=== PATIENT | male | born 1935 | race Caucasian/White ===

== ENCOUNTER 2017-01-18 17:02 | Inpatient (IN) | payer MEDICARE, BC ==
--- NOTE | 2017-01-18 17:31 | ED ---
General Adult HPI - General Chief complaint: Altered Mental Status Stated complaint: Altered Mental Status, Fall Time Seen by Provider: 01/18/17 17:27 Source: patient, family, RN notes reviewed, old records reviewed Mode of arrival: wheelchair Limitations: no limitations - History of Present Illness Initial comments: This is a 79-year-old male in the ER for evaluation of altered mental status. Patient has not been up acting appropriately all day. Was visit. This first cystitis patient is unable to give accurate history. Patient has been speaking to the all day, payton [place] toilet after 4 hours after going to the bathroom, was also found the ground hours after coming off the toilet. states patient has is refusing to the emergency room with the family arcual ready-made patient come to the ER at this point. Patient denies any complaints although again is poor strain - Related Data Home Medications Medication Instructions Recorded Confirmed Aspirin EC [Ecotrin Low Dose] 81 mg PO HS 04/27/15 01/18/17 Atorvastatin [Lipitor] 10 mg PO HS 01/18/17 01/18/17 Enalapril [Vasotec] 5 mg PO HS 01/18/17 01/18/17 Isosorbide Mononitrate ER [Imdur] 30 mg PO QAM 01/18/17 01/18/17 oxyCODONE-APAP 10-325MG [Percocet 1 tab PO Q6HR 01/18/17 01/18/17 10-325 mg] Previous Rx's Medication Instructions Recorded Nitroglycerin Sl Tabs [Nitrostat] 0.4 mg SUBLINGUAL Q5M PRN #25 tab 05/01/15 Allergies Allergy/AdvReac Type Severity Reaction Status Date / Time No Known Allergies Allergy Verified 01/18/17 17:09 Review of Systems ROS Statement: Those systems with pertinent positive or pertinent negative responses have been documented in the HPI. ROS Other: All systems not noted in ROS Statement are negative. Past Medical History Past Medical History: Chest Pain / Angina, GERD/Reflux, Hyperlipidemia, Hypertension, Myocardial Infarction ([place]), Osteoarthritis (OA) Additional Past Medical History / Comment(s): kidney stone, TIA, HIATAL HERNIA, PALPATIONS, DDD Last Myocardial Infarction Date:: 1992 History of Any Multi-Drug Resistant Organisms: None Reported Past Surgical History: Adenoidectomy, Back Surgery, Coronary Bypass/CABG, Heart Catheterization, Hernia Repair, Tonsillectomy Additional Past Surgical History / Comment(s): LT carotid endarectomy, back surgery FUSION, SX FOR HIATAL HERNIA-PT STATED IT DID'NT WORK.X2 CABG 1982 AND 2008,HARRISON CATARACTS,REPAIR OF TORN RETINA, EGD, HARRISON INGUIANL HERNIA REPAIR, HARRISON CARPAL TUNNEL RELEASE,HARRISON ROTATOR CUFF REPAIR, CYSTOCOPY(HAD KIDNEY STONE) Past Psychological History: No Psychological Hx Reported Smoking Status: Never smoker Past Alcohol Use History: None Reported Past Drug Use History: None Reported - Past Family History Father Family Medical History: No Reported History Mother Family Medical History: No Reported History General Exam Limitations: no limitations General appearance: alert, in no apparent distress Head exam: Present: atraumatic, normocephalic, normal inspection Eye exam: Present: normal appearance, PERRL, EOMI. Absent: scleral icterus, conjunctival injection, periorbital swelling ENT exam: Present: normal exam, mucous membranes moist Neck exam: Present: normal inspection. Absent: tenderness, meningismus, lymphadenopathy Respiratory exam: Present: normal lung sounds bilaterally. Absent: respiratory distress, wheezes, rales, rhonchi, stridor Cardiovascular Exam: Present: regular rate, normal rhythm, normal heart sounds. Absent: systolic murmur, diastolic murmur, rubs, gallop, clicks GI/Abdominal exam: Present: soft, normal bowel sounds. Absent: distended, tenderness, guarding, rebound, rigid Extremities exam: Present: normal inspection, full ROM, normal capillary refill. Absent: tenderness, pedal edema, joint swelling, calf tenderness Back exam: Present: normal inspection Neurological exam: Present: alert, oriented X3, CN II-XII intact Psychiatric exam: Present: normal affect, normal mood Skin exam: Present: warm, dry, intact, normal color. Absent: rash Course Vital Signs 01/18/17 01/18/17 01/18/17 17:06 18:44 19:16 Temperature 97.8 F Pulse Rate 87 67 66 Respiratory 18 16 16 Rate Blood Pressure 179/79 188/79 182/77 O2 Sat by Pulse 97 96 98 Oximetry - Reevaluation(s) Reevaluation #1: 01/18/17 19:57 Patient continues with expressive aphasia per family and per questioning. Reevaluation #2: 01/18/17 19:57 Patient is not a TPA candidate secondary to time of onset being woke up with symptoms EKG Findings - EKG Comments: EKG Findings:: EKG shows normal sinus rhythm rate of 72, NH 144, QRS 140, QTC 431 Medical Decision Making - Medical Decision Making 81 male here for evaluation. Patient does here for evaluation of expressive aphasia, weakness, and acting appropriately. Patient be admitted with acute CVA neurological evaluation - Lab Data Result diagrams: 01/18/17 17:45 01/18/17 17:45 Lab Results 01/18/17 01/18/17 01/18/17 Range/Units 17:45 17:45 17:45 WBC 7.7 (3.8-10.6) k/uL RBC 4.92 (4.30-5.90) m/uL Hgb 15.3 (13.0-17.5) gm/dL Hct 45.6 (39.0-53.0) % MCV 92.8 (80.0-100.0) fL MCH 31.0 (25.0-35.0) pg MCHC 33.5 (31.0-37.0) g/dL RDW 14.0 (11.5-15.5) % Plt Count 165 (150-450) k/uL Neutrophils % 88 % Lymphocytes % 7 % Monocytes % 4 % Eosinophils % 0 % Basophils % 0 % Neutrophils # 6.8 (1.3-7.7) k/uL Lymphocytes # 0.6 L (1.0-4.8) k/uL Monocytes # 0.3 (0-1.0) k/uL Eosinophils # 0.0 (0-0.7) k/uL Basophils # 0.0 (0-0.2) k/uL PT (9.0-12.0) sec INR (<1.2) APTT (22.0-30.0) sec Sodium 139 (137-145) mmol/L Potassium 4.8 (3.5-5.1) mmol/L Chloride 105 (98-107) mmol/L Carbon Dioxide 23 (22-30) mmol/L Anion Gap 11 mmol/L BUN 20 (9-20) mg/dL Creatinine 1.00 (0.66-1.25) mg/dL Est GFR (MDRD) Af Amer >60 (>60 ml/min/1.73 sqM) Est GFR (MDRD) Non-Af >60 (>60 ml/min/1.73 sqM) Glucose 116 H (74-99) mg/dL Calcium 9.6 (8.4-10.2) mg/dL Phosphorus 3.2 (2.5-4.5) mg/dL Magnesium 1.4 L (1.6-2.3) mg/dL Total Bilirubin 0.7 (0.2-1.3) mg/dL AST 25 (17-59) U/L ALT 29 (21-72) U/L Alkaline Phosphatase 82 (38-126) U/L Total Creatine Kinase 255 H (55-170) U/L CK-MB (CK-2) 3.4 H* (0.0-2.4) ng/mL CK-MB (CK-2) Rel Index 1.3 Troponin I 0.219 H* (0.000-0.034) ng/mL Total Protein 6.9 (6.3-8.2) g/dL Albumin 4.3 (3.5-5.0) g/dL Urine Color Urine Appearance (Clear) Urine pH (5.0-8.0) Ur Specific [place] (1.001-1.035) Urine Protein (Negative) Urine Glucose (UA) (Negative) Urine Ketones (Negative) Urine Blood (Negative) Urine Nitrite (Negative) Urine Bilirubin (Negative) Urine Urobilinogen (<2.0) mg/dL Ur Leukocyte Esterase (Negative) Urine RBC (0-5) /hpf Urine WBC (0-5) /hpf Urine Mucus (None) /hpf 01/18/17 01/18/17 Range/Units 17:45 17:45 WBC (3.8-10.6) k/uL RBC (4.30-5.90) m/uL Hgb (13.0-17.5) gm/dL Hct (39.0-53.0) % MCV (80.0-100.0) fL MCH (25.0-35.0) pg MCHC (31.0-37.0) g/dL RDW (11.5-15.5) % Plt Count (150-450) k/uL Neutrophils % % Lymphocytes % % Monocytes % % Eosinophils % % Basophils % % Neutrophils # (1.3-7.7) k/uL Lymphocytes # (1.0-4.8) k/uL Monocytes # (0-1.0) k/uL Eosinophils # (0-0.7) k/uL Basophils # (0-0.2) k/uL PT 11.7 (9.0-12.0) sec INR 1.2 H (<1.2) APTT 24.7 (22.0-30.0) sec Sodium (137-145) mmol/L Potassium (3.5-5.1) mmol/L Chloride (98-107) mmol/L Carbon Dioxide (22-30) mmol/L Anion Gap mmol/L BUN (9-20) mg/dL Creatinine (0.66-1.25) mg/dL Est GFR (MDRD) Af Amer (>60 ml/min/1.73 sqM) Est GFR (MDRD) Non-Af (>60 ml/min/1.73 sqM) Glucose (74-99) mg/dL Calcium (8.4-10.2) mg/dL Phosphorus (2.5-4.5) mg/dL Magnesium (1.6-2.3) mg/dL Total Bilirubin (0.2-1.3) mg/dL AST (17-59) U/L ALT (21-72) U/L Alkaline Phosphatase (38-126) U/L Total Creatine Kinase (55-170) U/L CK-MB (CK-2) (0.0-2.4) ng/mL CK-MB (CK-2) Rel Index Troponin I (0.000-0.034) ng/mL Total Protein (6.3-8.2) g/dL Albumin (3.5-5.0) g/dL Urine Color Light Yellow Urine Appearance Clear (Clear) Urine pH 6.5 (5.0-8.0) Ur Specific [place] 1.010 (1.001-1.035) Urine Protein 1+ H (Negative) Urine Glucose (UA) Negative (Negative) Urine Ketones 2+ H (Negative) Urine Blood Small H (Negative) Urine Nitrite Negative (Negative) Urine Bilirubin Negative (Negative) Urine Urobilinogen <2.0 (<2.0) mg/dL Ur Leukocyte Esterase Negative (Negative) Urine RBC 4 (0-5) /hpf Urine WBC <1 (0-5) /hpf Urine Mucus Rare H (None) /hpf - Radiology Data Radiology results: report reviewed (CT brain is negative for acute disease), image reviewed Disposition Clinical Impression: Altered mental status, CVA (cerebral vascular accident) Disposition: ADMITTED IP TO THIS [facility] Condition: Good Instructions: Altered Mental Status (ED) Referrals: Elal Diallo DO [Primary Care Provider] - 1-2 days
[2017-01-18] MEDS ORDERED: SODIUM CHLORIDE 0.9% 1,000 ML IV STA ×2 (17:42→19:36)
[2017-01-18 18:16] LABS: Basophils % (A) 0 %; CH 30.5; Eosinophils % (A) 0 %; HCT 45.6 % (39.0-53.0); HDW 2.34; HGB 15.3 gm/dL (13.0-17.5); Luc # (Auto) 0.09; Luc % (Auto) 1; Lymphocytes # (A) 0.6 k/uL (1.0-4.8); Lymphocytes % (A) 7 %; MCHC 33.5 g/dL (31.0-37.0); MCV 92.8 fL (80.0-100.0); Monocytes # (A) 0.3 k/uL (0-1.0); Monocytes % (A) 4 %; Neutrophils # (A) 6.8 k/uL (1.3-7.7); Neutrophils % (A) 88 %; RBC 4.92 m/uL (4.30-5.90); WBC 7.7 k/uL (3.8-10.6); WBC (Perox) 8.05
[2017-01-18 18:27] LABS: Partial Thromboplastin Time 24.7 sec (22.0-30.0)
[2017-01-18 18:29] LABS: INR 1.2 (<1.2); Prothrombin Time 11.7 sec (9.0-12.0)
[2017-01-18 18:36] LABS: ALT 29 U/L (21-72); AST 25 U/L (17-59); Alkaline Phosphatase 82 U/L (38-126); Anion Gap 11 mmol/L; Blood Urea Nitrogen 20 mg/dL (9-20); Calcium 9.6 mg/dL (8.4-10.2); Carbon Dioxide 23 mmol/L (22-30); Chloride 105 mmol/L (98-107); Glucose 116 mg/dL (74-99); Magnesium 1.4 mg/dL (1.6-2.3); Non-African American GFR(MDRD) >60 (>60 ml/min/1.73 sqM); Phosphorous 3.2 mg/dL (2.5-4.5); Potassium 4.8 mmol/L (3.5-5.1); Sodium 139 mmol/L (137-145); Total Bilirubin 0.7 mg/dL (0.2-1.3); Total Protein 6.9 g/dL (6.3-8.2)
[2017-01-18 18:55] LABS: Appearance,Urine Clear (Clear); Bilirubin,Urine Negative (Negative); Glucose,Urine (UA) Negative (Negative); Ketones,Urine 2+ (Negative); Leukocyte Esterase,Urine Negative (Negative); Mucus,Urine Rare /hpf; Nitrite,Urine Negative (Negative); PH, Urine 6.5 (5.0-8.0); Particle Count 944; Protein,Urine 1+ (Negative); RBC,Urine 4 /hpf (0-5); UA Billing (MACRO vs. MICRO) MICRO; Urobilinogen,Urine <2.0 mg/dL (<2.0); WBC,Urine <1 /hpf (0-5)
[2017-01-18 19:03] LABS: Creatine Kinase MB 3.4 ng/mL (0.0-2.4); Troponin I 0.219 ng/mL (0.000-0.034)
--- NOTE | 2017-01-18 19:06 | CT ---
EXAMINATION TYPE: CT brain wo con DATE OF EXAM: 01/18/2017 COMPARISON: NONE INDICATION: generalized weakness DLP: 1715.4 mGycm, Automated exposure control for dose reduction was used. CONTRAST: None CT of the brain is performed utilizing 3 mm thick sections through the posterior fossa and 3 mm thick sections through the remaining calvarium. Study is performed within 24 hours of arrival to the hosp ital. No abnormal hyperdensity is present to suggest an acute intracranial hemorrhage. No mass lesion is evident. No acute infarcts are evident. Confluent periventricular white matter hypodensity is present, likely on the basis of chronic white matter ischemic changes. Ventricles and sulci are appropriate for the patient age. Paranasal sinuses and mastoid air cells within the [id number] are clear. IMPRESSIONS: 1. Atrophy with periventricular white matter ischemic type changes.
--- NOTE | 2017-01-18 19:13 | XR ---
EXAMINATION TYPE: XR chest 2V DATE OF EXAM: 01/18/2017 COMPARISON: NONE INDICATION: Weakness fall acute mental status changes TECHNIQUE: Frontal and lateral views of the chest are obtained. FINDINGS: The heart size is normal. The pulmonary vasculature is normal. The lungs are clear. Sternotomy wires are in the midline. IMPRESSION: 1. No acute pulmonary process.
[2017-01-18] MEDS ORDERED: ASPIRIN 325 MG TAB PO STA (19:58)
[2017-01-18] MEDS: SODIUM CHLORIDE 0.9% 1,000 ML IV SCH (23:22)
[2017-01-18] MEDS: ATORVASTATIN 80 MG TAB PO SCH (23:22)
[2017-01-19] MEDS ORDERED: Magnesium Replacement Protocol 1 EACH MISC MISCELLANE PRN (03:52)
[2017-01-19 04:22] LABS: Cholesterol 138 mg/dL (<200); HDL Cholesterol 57 mg/dL (40-60)
[2017-01-19] MEDS: HYDROcodone/APAP 5-325MG 1 EACH TAB PO PRN ×3 (04:38→22:00)
[2017-01-19] MEDS: MAGNESIUM SULFATE-D5W PMX 1 GM in DEXTROSE/WATER 1 100ML.BAG IVPB SCH ×2 (04:38→05:38)
[2017-01-19 05:22] VITALS: BMI 23.5
[2017-01-19] MEDS: SODIUM CHLORIDE 0.9% 1,000 ML IV SCH ×2 (06:31→18:53)
--- NOTE | 2017-01-19 09:27 | US ---
EXAMINATION TYPE: US carotid duplex BILAT DATE OF EXAM: 01/19/2017 COMPARISON: 07/09/2012. CLINICAL HISTORY: Stenosis. Weakness, imbalance, difficulty speaking, left endarterectomy 4-5 yrs ag o EXAM MEASUREMENTS: RIGHT: Peak Systolic Velocity (PSV) cm/sec ----- Right CCA: 79.0 ----- Right ICA: 124.2 ----- Right ECA: 231.1 ICA/CCA ratio: 1.6 RIGHT: End Diastole cm/sec ----- Right CCA: 7.6 ----- Right ICA: 9.5 ----- Right ECA: 0.0 LEFT: Peak Systolic Velocity (PSV) cm/sec ----- Left CCA: 95.1 ----- Left ICA: 103.0 ----- Left ECA: 143.7 ICA/CCA ratio: 1.1 LEFT: End Diastole cm/sec ----- Left CCA: 7.8 ----- Left ICA: 14.4 ----- Left ECA: 0.0 VERTEBRALS (direction of flow): Right Vertebral: Antegrade Left Vertebral: Antegrade Moderate plaque bilateral bifurcations. Increased velocities bilateral ECA's IMPRESSION: 1. Moderate plaque with no significant hemodynamic stenosis bilaterally..
--- NOTE | 2017-01-19 13:33 | P.CNNES ---
History of Present Illness Consult date: 01/18/17 Reason for Consult: Patient admitted with altered mental status and speech arrest. History of Present Illness: This neurology consultation date of service is 01/18/2017. This patient is a 79-year-old right-handed white male who was in his usual state of health until earlier today. Apparently he was having difficulty ambulating at home. He lives at home with his . He states that he was unable to get up off of the commode due to weakness. His did seem to assist him back to his bed after this event. He then showed signs of aphasia. According to the patient he could not talk or have any verbal output for about 2 hours. Patient states he did not have any slurred speech but had no verbal output due to speech arrest. This was a clear new finding for the patient. He has not had these types of episodes in the past. He was brought into the emergency room at [facility] for further evaluation. He underwent a computed tomography scan of the brain which revealed atrophy with periventricular white matter ischemic changes. He was advised admission to the hospital for a complete stroke evaluation. He was not a candidate for TPA as he awoke with these symptoms. The patient states he also has a history of chronic back pain. He is undergone surgery for the back about 2 years ago and still suffers from chronic low back pain. He does take pain medications as needed for management. Patient denies any previous history of TIA or stroke. He does have history of coronary artery bypass grafting with CABG several years ago. Patient is now advised admission for further evaluation. He denies any previous history of head trauma or head injury. He denies having a seizure in the past. Patient is now been admitted and neurology has been consulted for further evaluation and recommendations. Review of Systems Constitutional: Denies chills, Denies fever Eyes: denies blurred vision, denies pain Ears, nose, mouth and throat: Denies headache, Denies sore throat Cardiovascular: Denies chest pain, Denies shortness of breath Respiratory: Denies cough Gastrointestinal: Denies abdominal pain, Denies diarrhea, Denies nausea, Denies vomiting Musculoskeletal: Denies myalgias Integumentary: Denies pruritus, Denies rash Neurological: Denies numbness, Denies weakness Psychiatric: Denies anxiety, Denies depression Endocrine: Denies fatigue, Denies weight change Past Medical History Past Medical History: Chest Pain / Angina, GERD/Reflux, Hyperlipidemia, Hypertension, Myocardial Infarction ([place]), Osteoarthritis ([place]) Additional Past Medical History / Comment(s): kidney stone, TIA, HIATAL HERNIA, PALPATIONS, DDD Last Myocardial Infarction Date:: 1992 History of Any Multi-Drug Resistant Organisms: None Reported Past Surgical History: Adenoidectomy, Back Surgery, Coronary Bypass/CABG, Heart Catheterization, Hernia Repair, Tonsillectomy Additional Past Surgical History / Comment(s): LT carotid endarectomy, back surgery FUSION, SX FOR HIATAL HERNIA-PT STATED IT DID'NT WORK.X2 CABG 1982 AND 2008,HARRISON CATARACTS,REPAIR OF TORN RETINA, EGD, HARRISON INGUIANL HERNIA REPAIR, HARRISON CARPAL TUNNEL RELEASE,HARRISON ROTATOR CUFF REPAIR, CYSTOCOPY(HAD KIDNEY STONE) Past Anesthesia/Blood Transfusion Reactions: No Reported Reaction Past Psychological History: No Psychological Hx Reported Additional Psychological History / Comment(s): PT LIVES AT HOME WITH HIS , IS RETIRED,USED TO WORK COMPUTER/ELECTRONIC REPAIRMAN, NO SERVICE. PT INDEPENDANT BUT HAS STARTED TO USE A CANE WHEN UP. Smoking Status: Never smoker Past Alcohol Use History: None Reported Past Drug Use History: None Reported - Past Family History Father Family Medical History: No Reported History Mother Family Medical History: No Reported History Medications and Allergies Home Medications Medication Instructions Recorded Confirmed Type Aspirin EC [Ecotrin Low Dose] 81 mg PO HS 04/27/15 01/18/17 History Atorvastatin [Lipitor] 10 mg PO HS 01/18/17 01/18/17 History Enalapril [Vasotec] 5 mg PO HS 01/18/17 01/18/17 History Isosorbide Mononitrate ER [Imdur] 30 mg PO QAM 01/18/17 01/18/17 History oxyCODONE-APAP 10-325MG [Percocet 1 tab PO Q6HR 01/18/17 01/18/17 History 10-325 mg] Allergies Allergy/AdvReac Type Severity Reaction Status Date / Time No Known Allergies Allergy Verified 01/18/17 17:09 Physical Examination - Vital Signs Vital Signs: Vital Signs Temp Pulse Pulse Resp BP BP Pulse Ox 01/19/17 08:00 98.1 F 65 16 150/67 95 01/19/17 04:00 98.3 F 59 L 16 190/70 95 01/19/17 00:00 98.8 F 65 16 165/69 97 01/18/17 21:04 97.8 F 64 16 150/65 95 01/18/17 20:17 98.1 F 66 18 175/72 99 01/18/17 20:00 71 18 150/72 96 01/18/17 19:16 66 16 182/77 98 01/18/17 18:44 67 16 188/79 96 01/18/17 17:06 97.8 F 87 18 179/79 97 Intake and Output 01/18/17 01/19/17 01/19/17 22:59 06:59 14:59 Intake Total 1000 180 Balance 1000 180 Intake: IV 1000 Magnesium Sulfate-D5w Pmx 200 1 gm In Dextrose/Water 1 100ml.bag @ 100 mls/hr IVPB Q1H [facility] Rx#: [id number] Sodium Chloride 0.9% 1, 800 000 ml @ 100 mls/hr IV . Q10H [facility] Rx#:[id number] Oral 180 Other: Voiding Method Toilet Toilet Weight 68.039 kg 67.7 kg - Constitutional General appearance: average body habitus, cooperative - EENT EENT: PERRL, mucous membranes moist - Respiratory Respiratory: lungs clear, normal breath sounds - Cardiovascular Cardiovascular: regular rate, normal S1, normal S2 Extremities: no peripheral edema bilaterally - Gastrointestinal Gastrointestinal: normoactive bowel sounds - Integumentary Integumentary: normal - Neurologic Cranial nerve examination: PERRL, EOMI, VFF, V1/V2/V3 grossly intact, face symmetric, intact gag reflex, intact corneal reflex, normal palatal elevation Speech examination: intact Sensorimotor examination: intact Detailed motor examination: grossly full strength in all extremities Motor examination - right side: 4/5: biceps, triceps, wrist flexion, wrist extension, direct support staff, hip flexors, knee extensors, dorsiflexion, toe extension (EHL) , plantarflexion Motor examination - left side: 4/5: biceps, triceps, wrist flexion, wrist extension, direct support staff, hip flexors, knee extensors, dorsiflexion, toe extension (EHL) , plantarflexion Detailed sensory examination: intact Reflex and gait examination: intact Reflexes: 1+: ankle, bicep, knee, tricep - Musculoskeletal Musculoskeletal: no pain - Psychiatric Psychiatric: mood/affect appropriate, cooperative Results - Laboratory Findings CBC and BMP: 01/18/17 17:45 01/18/17 17:45 Abnormal Lab Findings: Abnormal Labs 01/18/17 01/18/17 01/18/17 17:45 17:45 17:45 Lymphocytes # 0.6 L INR Glucose 116 H Magnesium 1.4 L Total Creatine Kinase 255 H CK-MB (CK-2) 3.4 H* Troponin I 0.219 H* Urine Protein Urine Ketones Urine Blood Urine Mucus 01/18/17 01/18/17 17:45 17:45 Lymphocytes # INR 1.2 H Glucose Magnesium Total Creatine Kinase CK-MB (CK-2) Troponin I Urine Protein 1+ H Urine Ketones 2+ H Urine Blood Small H Urine Mucus Rare H Assessment and Plan (1) Acute encephalopathy Status: Acute Code(s): G93.40 - ENCEPHALOPATHY, UNSPECIFIED (2) Expressive aphasia Status: Acute Code(s): R47.01 - APHASIA (3) TIA (transient ischemic attack) Status: Acute Code(s): G45.9 - TRANSIENT CEREBRAL ISCHEMIC ATTACK, UNSPECIFIED (4) Previous back surgery Status: Acute Code(s): Z98.890 - OTHER SPECIFIED POSTPROCEDURAL STATES Plan: This patient is a 81-year-old male who was admitted with symptoms of acute speech arrest and confusion. Patient states he awoke and was sitting on the toilet and developed some weakness. His was able to assist him where she noted he had no to little verbal output for over 2 hours duration. She decided to bring him to the emergency room. He was not a TPA candidate as per the ER and the interventional group. The patient was sent for a computed tomography scan of the brain which revealed atrophy. He is subsequent been admitted to hospital. His neurological examination is consistent with acute TIA. We have recommended a complete stroke evaluation but the patient. His overall prognosis at this time remains very guarded. We will continue close neurological follow-up for this patient during this admission. Time with Patient: Greater than 30
--- NOTE | 2017-01-19 13:38 | HP ---
CHIEF COMPLAINTS: Expressive dysphasia and as well as weakness and change in mental status. HISTORY OF PRESENT ILLNESS: This 81-year-old gentleman with past medical history of multiple medical problems including hypertension, hyperlipidemia, history of myocardial infarction, history of CAD, CABG being followed by Dr. Dexter in the outpatient setting was noted to have some change in mental status as well as expressive dysphasia by family. The patient apparently was mildly confused, unable to answer questions correctly. The patient was taken to [facility] and admitted for further evaluation and treatment. Patient is able to give only vague history. The rest of history is obtained with my discussion with staff and discussion with ER physician and review of the chart. CT scan showed atrophy with periventricular white matter changes. There is no history of fever, rigors. No history of trauma. The troponin is found to be 0.219. PAST MEDICAL HISTORY: History of hypertension, hyperlipidemia, history of myocardial infarction, adenoidectomy Medications prior to admission include: 1. Oxycodone 10 mg q.6 p.r.n. 2. Nitrostat 0.4 sublingual 3. Imdur 30 mg q.a.m. 4. Vasotec 5 mg q.h.s. 5. Lipitor 10 mg daily. ALLERGIES: NONE. Family history, social history and review of systems could not be taken at length because of change in mental status. PHYSICAL EXAMINATION: The patient is slightly drowsy, arousable. The pulse is 87 , blood pressure 179/79, respirations 18, temperature 97.8, pulse ox 97% on room air. HEENT: Conjunctivae normal. NECK: No jugular venous distention. CARDIOVASCULAR: S1, S2. RESPIRATORY: Breath sounds diminished at the bases. A few scattered rhonchi, no crackles. ABDOMEN: Soft, nontender, no mass palpable. LEGS: No edema, no swelling. NERVOUS SYSTEM: No focal deficits. LABS: Troponin 0.219. Other labs noted. ASSESSMENT: 1. Expressive dysphasia and change in mental status, possibly rule out acute stroke or TIA. 2. Change in mental status metabolic encephalopathy. 3. Troponin 0.219, indeterminate. 4. History of hypertension. 5. History of hyperlipidemia. 6. History of coronary artery disease, CABG. RECOMMENDATIONS AND DISCUSSION: In this 81-year-old gentleman who presented with multiple complex medical issues, we well monitor the patient closely. Continue the current medications. Continue symptomatic treatment. Antiplatelet agents. Neurology consultation. Also recommend neurovascular workup. Otherwise continue to monitor. scale has been monitored. Otherwise prognosis guarded because of multiple complex medical issues and further recommendations to follow. MTDD
[2017-01-19 17:08] VITALS: RESP 18
--- NOTE | 2017-01-19 17:09 | P.PN ---
Subjective Date of service 01/19/2017 Progress note being dictated for Dr. Keating. Interval history: This 81-year-old gentleman admitted with acute CVA/TIA with expressive dysphasia, and change in mental status. Neuro workup in progress. Carotid Doppler reporting no hemodynamic significant stenosis .Evaluated by neurology with recommendations noted. Telemetry sinus bradycardia with heart rates in the 50s. Denies chest pain, palpitations or increasing shortness of breath. Objective - Vital Signs Vital signs: Vital Signs Temp 98.1 F 01/19/17 08:00 Pulse 65 01/19/17 08:00 Resp 16 01/19/17 08:00 BP 150/67 01/19/17 08:00 Pulse Ox 95 01/19/17 08:00 Intake & Output 01/18/17 01/19/17 01/19/17 18:59 06:59 18:59 Intake Total 1000 420 Balance 1000 420 Weight 68.039 kg 67.7 kg Intake: IV 1000 Magnesium Sulfate-D5w Pmx 200 1 gm In Dextrose/Water 1 100ml.bag @ 100 mls/hr IVPB Q1H JOSE F Rx#: [id number] Sodium Chloride 0.9% 1, 800 000 ml @ 100 mls/hr IV . Q10H JOSE F Rx#:[id number] Oral 420 Other: Voiding Method Toilet Toilet - Exam PHYSICAL EXAM: VITAL SIGNS: [As above] GENERAL: [Sitting up in bed, tired appearing, no acute distress] HEENT: [Pupils equal conjunctiva normal.] NECK: [Supple, no JVD] RESPIRATORY EFFORT:[ Normal] LUNGS: [Bilateral bases diminished, scattered rhonchi with no crackles, no wheezing] CARDIOVASCULAR[ regular S1 and S2, bradycardic, no edema] GI: [Abdomen soft, nontender, positive bowel sounds.] PSYCH: [Alert and oriented -3, mood and affect normal.] NEURO: [No focal deficits] - Labs CBC & Chem 7: 01/18/17 17:45 01/18/17 17:45 Labs: Abnormal Lab Results - Last 24 Hours (Table) 01/18/17 01/18/17 01/18/17 Range/Units 17:45 17:45 17:45 Lymphocytes # 0.6 L (1.0-4.8) k/uL INR (<1.2) Glucose 116 H (74-99) mg/dL Magnesium 1.4 L (1.6-2.3) mg/dL Total Creatine Kinase 255 H (55-170) U/L CK-MB (CK-2) 3.4 H* (0.0-2.4) ng/mL Troponin I 0.219 H* (0.000-0.034) ng/mL Urine Protein (Negative) Urine Ketones (Negative) Urine Blood (Negative) Urine Mucus (None) /hpf 01/18/17 01/18/17 Range/Units 17:45 17:45 Lymphocytes # (1.0-4.8) k/uL INR 1.2 H (<1.2) Glucose (74-99) mg/dL Magnesium (1.6-2.3) mg/dL Total Creatine Kinase (55-170) U/L CK-MB (CK-2) (0.0-2.4) ng/mL Troponin I (0.000-0.034) ng/mL Urine Protein 1+ H (Negative) Urine Ketones 2+ H (Negative) Urine Blood Small H (Negative) Urine Mucus Rare H (None) /hpf Microbiology - Last 24 Hours (Table) 01/18/17 17:45 Urine Culture - Preliminary Urine,Voided Assessment and Plan Plan: 1. [ Expressive dysphasia with change in mental status, possible acute CVA or TIA]. 2. [ Acute metabolic encephalopathy secondary to the above]. 3. [ Troponin 0.219, indeterminate]. 4. [ CAD, history of CABG]. 5. [ Hypertension]. 6. [ Hyperlipidemia]. Plan: Continue on current medication regime , statin, aspirin, monitoring and symptomatic treatment. Follow closely with neurology. Further recommendations to follow. Discharge planning in progress for tomorrow pending neurology clearance. The impression and plan of care has been dictated as directed. : I performed a H&P examination of this patient and discussed the same with the dictator. I agree with the dictator's note. Any additional findings/opinions/ etc. will be noted.
[2017-01-19] MEDS ORDERED: LOPERAMIDE 2 MG CAP PO PRN (19:40)
[2017-01-19] MEDS: ATORVASTATIN 80 MG TAB PO SCH (20:10)
[2017-01-19] MEDS: ASPIRIN 325 MG TAB PO SCH (20:10)
[2017-01-19] MEDS ORDERED: LISINOPRIL 10 MG TAB PO SCH (21:00)
--- NOTE | 2017-01-20 07:23 | MR ---
EXAMINATION TYPE: MR brain wo con DATE OF EXAM: 01/20/2017 7:05 AM. COMPARISON: Previous CT scan of the brain dated 01/18/2017. HISTORY: Speech arrest. Technique: Multiplanar, multiecho imaging of the brain was obtained without intravenous contrast. FINDINGS: There are generalized changes of sulcal prominence and ventriculomegaly, compatible with a trophic change. There is a mildly convex upper margin of the pituitary, unusual in this age group. Midline structures are otherwise unremarkable. There is a normal craniocervical junction. Echoplanar diffusion imaging shows no evidence of restricted diffusion. There are normal vascular flow voids. The orbits are unremarkable. There is no evidence of a CP angle mass lesion. There is diffuse and punctate periventricular white matter change likely on the basis of small vessel disease and chronic ischemic change. There is no mass effect, midline shift or intracranial blood. IMPRESSION: 1. NO ACUTE INTRACRANIAL ABNORMALITY. 2. CONVEX UPPER MARGIN OF THE PITUITARY GLAND, UNUSUAL IN THIS AGE GROUP. IF FELT CLINICALLY INDICATE D, A DEDICATED PITUITARY MR COULD BE PERFORMED. 3. BOTH PUNCTATE AND CONFLUENT PERIVENTRICULAR WHITE MATTER CHANGE, LIKELY ON THE BASIS OF SMALL VESS EL DISEASE AND CHRONIC ISCHEMIC CHANGE.
[2017-01-20] MEDS: ASPIRIN 325 MG TAB PO SCH (07:37)
[2017-01-20] MEDS: SODIUM CHLORIDE 0.9% 1,000 ML IV SCH ×2 (07:37→12:56)
[2017-01-20 07:55] VITALS: TEMP 96.9
[2017-01-20] MEDS ORDERED: ISOSORBIDE MONONITRATE ER 30 MG TAB.ER.24H PO SCH (09:00)
[2017-01-20] MEDS: HYDROcodone/APAP 5-325MG 1 EACH TAB PO PRN (09:37)
[2017-01-20] MEDS ORDERED: LISINOPRIL 10 MG TAB PO SCH (10:30)
[2017-01-20 12:20] VITALS: BP 182/72; PULSE 56
--- NOTE | 2017-01-23 12:34 | DS ---
FINAL DIAGNOSES: 1. Expressive dysphasia, change in mental status, possible acute TIA, acute stroke ruled out. 2. Acute metabolic encephalopathy, secondary to above. 3. Troponin 0.219, indeterminate. 4. History of coronary artery disease. 5. History of CABG. 6. Hypertension. 7. Hyperlipidemia. RECOMMENDATIONS AND DISCUSSION: Continue current management. Monitor, symptomatic MTDD
--- NOTE | 2017-01-23 13:22 | DS ---
ADDENDUM: DATE OF SERVICE: 01/12/2017 COURSE IN HOSPITAL: This 81-year-old gentleman admitted with expressive dysphasia and features of TIA. Neurovascular workup was basically negative and neurology saw the patient and recommended the patient be discharged. On exam, vitals are stable. CARDIOVASCULAR: S1, S2. ABDOMEN: Soft. NERVOUS SYSTEM: No focal deficits. DISCHARGE ADVICE: 1. Diet is cardiac. 2. Activity limited until follow up. 3. Follow up with Dr. Wilkerson in 2 to 3 days. 4. Follow up with Dr. Grijalva, neurology as recommended. Medications will be as follows: 1. Ecotrin 81 mg q.h.s. 2. Lipitor 20 mg q.h.s. 3. Imdur ER 30 mg q.a.m. 4. Zestril 10 mg p.o. b.i.d. 5. Nitrostat 0.4 sublingual p.r.n. 6. Oxycodone 10 mg q.6 p.r.n. Once again the patient is being discharged in stable condition with guarded prognosis. ALE
== END 2017-01-20 14:50 | disposition home health service (06) | DRG 69 ==
LOC: EC 17:02 → 6SEL 19:58
PROVIDERS: ADMIT Hospitalist; ATTEND Hospitalist
DX: G45.9 Transient cerebral ischemic attack, unspecified (principal); G93.41 Metabolic encephalopathy; R00.1 Bradycardia, unspecified; Z95.1 Presence of aortocoronary bypass graft; R47.01 Aphasia; I10 Essential (primary) hypertension; E78.5 Hyperlipidemia, unspecified; I25.2 Old myocardial infarction; I25.10 Atherosclerotic heart disease of native coronary artery without angina pectoris; R26.2 Difficulty in walking, not elsewhere classified; R47.02 Dysphasia; R53.1 Weakness; M19.90 Unspecified osteoarthritis, unspecified site; K21.9 Gastro-esophageal reflux disease without esophagitis; M54.5 Low back pain; G89.29 Other chronic pain; R29.703 NIHSS score 3; R74.8 Abnormal levels of other serum enzymes; Z79.899 Other long term (current) drug therapy; Z87.442 Personal history of urinary calculi; Z86.73 Personal history of transient ischemic attack (TIA), and cerebral infarction without residual deficits; Z79.82 Long term (current) use of aspirin; Z79.891 Long term (current) use of opiate analgesic; Z98.1 Arthrodesis status; Z98.42 Cataract extraction status, left eye; Z98.41 Cataract extraction status, right eye; Z86.79 Personal history of other diseases of the circulatory system
CPT/HCPCS: 36415; 70450; 70551; 71020; 80053; 80061; 81001; 82140; 82550; 82553; 83735; 84100; 84484; 85025; 85610; 85730; 87077; 87086; 87186; 93005; 93880; 95819; 96360; 99285

== ENCOUNTER → 2017-08-05 | Outpatient (CLI) | payer MEDICARE, BC ==
[2017-08-05 11:05] LABS: Potassium 4.5 mmol/L (3.5-5.1)
== END | disposition home or self-care (01) ==
LOC: LABWHC1 10:21
PROVIDERS: ATTEND Internal Medicine Interventional Cardiology
DX: E87.5 Hyperkalemia (principal)
CPT/HCPCS: 36415; 80051; 82565; 84520

== ENCOUNTER 2017-10-31 22:32 | Emergency (ER) | payer MEDICARE, BC ==
[2017-11-01] MEDS ORDERED: SODIUM CHLORIDE 0.9% 500 ML IV STA (00:15)
[2017-11-01] MEDS ORDERED: METOCLOPRAMIDE 5 MG/ML 2 ML VIAL IVP STA (00:15)
[2017-11-01] MEDS ORDERED: ACETAMINOPHEN IV (For NPO) 1,000 MG in EMPTY BAG 1 BAG IVPB STA (00:16)
--- NOTE | 2017-11-01 00:21 | ED ---
General Adult HPI - General Chief complaint: Headache Stated complaint: Pain in head Time Seen by Provider: 11/01/17 00:00 Source: patient, family, RN notes reviewed Mode of arrival: ambulatory Limitations: no limitations - History of Present Illness Initial comments: Patient is a pleasant 82-year-old male presenting to the emergency department with discomfort on the right side of the head. Onset of symptoms was earlier this morning. Symptoms have been occurring throughout the day. Patient has had multiple episodes of sharp stabbing discomfort below the right mandaeism lasting to 15 seconds and then resolving. Patient states when they occur they are severe. No confusion. No weakness. Patient has had some history of itching in this area before however not pain similar to this. No photophobia. No nausea or vomiting. Patient was at urgent care prior to arrival with blood pressure of 193/70. The physician there Dr. Marino did call and requested further evaluation of the patient. - Related Data Home Medications Medication Instructions Recorded Confirmed Aspirin EC [Ecotrin Low Dose] 81 mg PO HS 04/27/15 01/18/17 Isosorbide Mononitrate ER [Imdur] 30 mg PO QAM 01/18/17 01/18/17 oxyCODONE-APAP 10-325MG [Percocet 1 tab PO Q6HR 01/18/17 01/18/17 10-325 mg] Previous Rx's Medication Instructions Recorded Nitroglycerin Sl Tabs [Nitrostat] 0.4 mg SUBLINGUAL Q5M PRN #25 tab 05/01/15 Atorvastatin Calcium [Lipitor] 20 mg PO HS #30 tab 01/20/17 Lisinopril [Zestril] 10 mg PO BID #20 tab 01/20/17 Allergies Allergy/AdvReac Type Severity Reaction Status Date / Time No Known Allergies Allergy Verified 10/31/17 22:54 Review of Systems ROS Statement: Those systems with pertinent positive or pertinent negative responses have been documented in the HPI. ROS Other: All systems not noted in ROS Statement are negative. Constitutional: Denies: fever Eyes: Denies: eye pain ENT: Denies: ear pain Respiratory: Denies: cough Cardiovascular: Denies: chest pain Endocrine: Denies: fatigue Gastrointestinal: Denies: abdominal pain Genitourinary: Denies: dysuria Musculoskeletal: Denies: back pain Skin: Denies: rash Neurological: Reports: headache. Denies: weakness, numbness, paresthesias, confusion Past Medical History Past Medical History: Chest Pain / Angina, GERD/Reflux, Hyperlipidemia, Hypertension, Myocardial Infarction (TX), Osteoarthritis (OA) Additional Past Medical History / Comment(s): kidney stone, TIA, HIATAL HERNIA, PALPATIONS, DDD Last Myocardial Infarction Date:: 1992 History of Any Multi-Drug Resistant Organisms: None Reported Past Surgical History: Adenoidectomy, Back Surgery, Coronary Bypass/CABG, Heart Catheterization, Hernia Repair, Tonsillectomy Additional Past Surgical History / Comment(s): LT carotid endarectomy, back surgery FUSION, SX FOR HIATAL HERNIA-PT STATED IT DID'NT WORK.X2 CABG 1982 AND 2008,[facility] CATARACTS,REPAIR OF TORN RETINA, EGD, [facility]ISON INGUIANL HERNIA REPAIR, [facility] CARPAL TUNNEL RELEASE,[facility]ISON ROTATOR CUFF REPAIR, CYSTOCOPY(HAD KIDNEY STONE) Past Anesthesia/Blood Transfusion Reactions: No Reported Reaction Past Psychological History: No Psychological Hx Reported Smoking Status: Never smoker Past Alcohol Use History: None Reported Past Drug Use History: None Reported - Past Family History Father Family Medical History: No Reported History Mother Family Medical History: No Reported History General Exam Limitations: no limitations General appearance: alert, in no apparent distress Head exam: Present: atraumatic, normocephalic, other (No tenderness to the temporal artery. No tenderness in the area just below this with the patient states is the area where discomfort occurs. No swelling or erythema. No tenderness or swelling of the TMJ region. No crepitus on exam.) Eye exam: Present: normal appearance, PERRL, EOMI. Absent: nystagmus ENT exam: Present: normal oropharynx, TM's normal bilaterally Neck exam: Present: normal inspection Respiratory exam: Present: normal lung sounds bilaterally Cardiovascular Exam: Present: regular rate, normal rhythm GI/Abdominal exam: Present: soft. Absent: tenderness Extremities exam: Present: normal inspection Neurological exam: Present: alert, oriented X3, CN II-XII intact. Absent: motor sensory deficit Expanded Neurological exam: Present: protecting the airway Speech: Present: fluid speech Cranial nerves: EOM's Intact: Normal, Facial Sensation: Normal Sensory exam: Upper Extremity Light Touch: Normal, Lower Extremity Light Touch: Normal Motor strength exam: RUE: 5, LUE: 5, RLE: 5, LLE: 5 Eye Response: (4) open spontaneously Motor Response: (6) obeys commands Verbal Response: (5) oriented Psychiatric exam: Present: normal affect, normal mood Skin exam: Present: normal color Course Vital Signs 10/31/17 11/01/17 11/01/17 22:51 00:48 02:05 Temperature 98.2 F Pulse Rate 60 48 L 52 L Respiratory 20 16 18 Rate Blood Pressure 194/74 165/70 192/80 O2 Sat by Pulse 98 100 96 Oximetry 11/01/17 02:42 Temperature Pulse Rate 50 L Respiratory 16 Rate Blood Pressure 172/75 O2 Sat by Pulse 98 Oximetry EKG Findings - EKG Comments: EKG Findings:: Sinus bradycardia 59. MT 158. QRS 112. QT 414. QTC 409. Normal axis. Incomplete left bundle-branch block. Inferior T wave inversion Medical Decision Making - Medical Decision Making Patient reevaluated and is feeling better. Patient and family updated on results and need for follow-up. - Lab Data Result diagrams: 11/01/17 00:44 11/01/17 00:44 Lab Results 11/01/17 11/01/17 11/01/17 Range/Units 00:44 00:44 00:44 WBC 6.1 (3.8-10.6) k/uL RBC 4.57 (4.30-5.90) m/uL Hgb 14.2 (13.0-17.5) gm/dL Hct 43.5 (39.0-53.0) % MCV 95.1 (80.0-100.0) fL MCH 31.0 (25.0-35.0) pg MCHC 32.6 (31.0-37.0) g/dL RDW 13.9 (11.5-15.5) % Plt Count 163 (150-450) k/uL Neutrophils % 62 % Lymphocytes % 25 % Monocytes % 7 % Eosinophils % 2 % Basophils % 1 % Neutrophils # 3.8 (1.3-7.7) k/uL Lymphocytes # 1.5 (1.0-4.8) k/uL Monocytes # 0.4 (0-1.0) k/uL Eosinophils # 0.1 (0-0.7) k/uL Basophils # 0.0 (0-0.2) k/uL ESR 6 (0-15) mm/hr PT 11.3 (9.0-12.0) sec INR 1.2 H (<1.2) APTT 23.0 (22.0-30.0) sec Sodium 144 (137-145) mmol/L Potassium 4.4 (3.5-5.1) mmol/L Chloride 106 (98-107) mmol/L Carbon Dioxide 27 (22-30) mmol/L Anion Gap 11 mmol/L BUN 25 H (9-20) mg/dL Creatinine 1.10 (0.66-1.25) mg/dL Est GFR (CKD-EPI)AfAm 72 (>60 ml/min/1.73 sqM) Est GFR (CKD-EPI)NonAf 62 (>60 ml/min/1.73 sqM) Glucose 100 H (74-99) mg/dL Calcium 9.2 (8.4-10.2) mg/dL Total Bilirubin 0.4 (0.2-1.3) mg/dL AST 19 (17-59) U/L ALT 31 (21-72) U/L Alkaline Phosphatase 73 (38-126) U/L C-Reactive Protein <5.0 (<10.0) mg/L Total Protein 6.2 L (6.3-8.2) g/dL Albumin 3.8 (3.5-5.0) g/dL - Radiology Data Radiology results: image reviewed (Computed tomography scan of the brain and CT angiogram of the brain revealed no acute abnormality.) Disposition Clinical Impression: Cephalgia Disposition: HOME SELF-CARE Condition: Stable Instructions: Acute Headache (ED) Additional Instructions: Please follow-up with primary care physician beginning of the week. Return for increased pain, confusion or weakness, worsening or changing symptoms or other concerns. Is patient prescribed a controlled substance at d/c from ED?: No Referrals: Ella Diallo DO [Primary Care Provider] - 1-2 days Time of Disposition: 03:03
[2017-11-01] MEDS: ENALAPRILAT 1.25 MG/ML 1 ML VIAL IVP STA ×2 (00:49→02:07)
[2017-11-01 00:52] LABS: Basophils % (A) 1 %; Eosinophils # (A) 0.1 k/uL (0-0.7); Eosinophils % (A) 2 %; HCT 43.5 % (39.0-53.0); HGB 14.2 gm/dL (13.0-17.5); Lymphocytes # (A) 1.5 k/uL (1.0-4.8); Lymphocytes % (A) 25 %; MCHC 32.6 g/dL (31.0-37.0); MCV 95.1 fL (80.0-100.0); Mean Platelet Volume 7.2; Monocytes # (A) 0.4 k/uL (0-1.0); Monocytes % (A) 7 %; Neutrophils # (A) 3.8 k/uL (1.3-7.7); Neutrophils % (A) 62 %; Platelet Count 163 k/uL (150-450); RBC 4.57 m/uL (4.30-5.90); RDW 13.9 % (11.5-15.5); WBC 6.1 k/uL (3.8-10.6)
[2017-11-01 01:02] LABS: INR 1.2 (<1.2); Prothrombin Time 11.3 sec (9.0-12.0)
[2017-11-01 01:03] LABS: ALT 31 U/L (21-72); AST 19 U/L (17-59); Albumin 3.8 g/dL (3.5-5.0); Alkaline Phosphatase 73 U/L (38-126); Anion Gap 11 mmol/L; Blood Urea Nitrogen 25 mg/dL (9-20); C Reactive Protein <5.0 mg/L (<10.0); Calcium 9.2 mg/dL (8.4-10.2); Carbon Dioxide 27 mmol/L (22-30); Chloride 106 mmol/L (98-107); Glucose 100 mg/dL (74-99); Potassium 4.4 mmol/L (3.5-5.1); Sodium 144 mmol/L (137-145); Total Bilirubin 0.4 mg/dL (0.2-1.3); Total Protein 6.2 g/dL (6.3-8.2)
[2017-11-01 01:29] LABS: Erythrocyte Sedimentation Rate 6 mm/hr (0-15)
--- NOTE | 2017-11-01 02:04 | CT ---
EXAMINATION TYPE: CT brain wo con DATE OF EXAM: 11/01/2017 COMPARISON: 01/18/2017 HISTORY: Rt side head/ear pain CT DLP: 1234.70 mGycm Automated exposure control for dose reduction was used. FINDINGS: There is cerebral cortical atrophy. There is patchy hypodensity in the periventricular white matter. There is no mass effect nor midline shift. There is no sign of intracranial hemorrhage. Calvarium is intact. IMPRESSION: CEREBRAL ATROPHY AND CHRONIC SMALL VESSEL ISCHEMIA. NO CHANGE COMPARED TO OLD EXAM. NO ACUTE INTRACRA NIAL ABNORMALITY.
--- NOTE | 2017-11-01 02:10 | CT ---
EXAMINATION TYPE: CT angio head DATE OF EXAM: 11/01/2017 1:55 AM COMPARISON: NONE HISTORY: Rt side head/ear pain CT DLP: 1234.70 mGycm Automated exposure control for dose reduction was used. TECHNIQUE: Performed with IV Contrast, patient injected with 100 mL of Isovue 370. . FINDINGS: There are 3-D post processed images. There is arterial flow in the anterior middle and posterior cere bral arteries. There is arterial flow in the vertebrobasilar artery system. There is no evidence of a neurysm or neovascularity. There is no mass effect. There is normal contrast opacification of the rohini ous sinuses. I see no evidence of hemodynamically significant stenosis. IMPRESSION: NORMAL CT ANGIOGRAM OF THE BRAIN.
[2017-11-01 03:25] VITALS: BP 183/78; PULSE 52; RESP 17; TEMP 97
== END 2017-11-01 03:25 | disposition home or self-care (01) ==
LOC: EC 22:32
DX: R51 Headache (principal); I10 Essential (primary) hypertension; I25.2 Old myocardial infarction; M19.90 Unspecified osteoarthritis, unspecified site; Z79.82 Long term (current) use of aspirin; Z79.899 Other long term (current) drug therapy; Z79.891 Long term (current) use of opiate analgesic; Z95.1 Presence of aortocoronary bypass graft; Z95.818 Presence of other cardiac implants and grafts
CPT/HCPCS: 36415; 93005; 80053; 85652; 85025; 85610; 85730; 86140; 70496; 70450; 99284; 96365; 96375 ×2; J2765; J0131; Q9967

== ENCOUNTER 2017-12-18 10:00 | Outpatient (CLI) | payer MEDICARE, BC | END 2017-12-18 11:00 | disposition home or self-care (01) | LOC: PTMAIN 10:00 | PROVIDERS: ATTEND Otolaryngology | DX: K21.9 Gastro-esophageal reflux disease without esophagitis (principal) | CPT/HCPCS: 31579 ==

== ENCOUNTER → 2017-12-18 | Outpatient (CLI) | payer MEDICARE, BC ==
--- NOTE | 2017-12-18 12:22 | FL ---
ESOPHOGRAM. HISTORY: Dysphagia Esophagram was performed per the air contrast technique. The patient swallowed barium and effervesce nt crystals without difficulty or delay. Esophageal peristalsis and motility appear to be within normal limits. There is no evidence for filling defect, mass or diverticulum. Small fixed hiatal hernia. Subsequently single contrast cervical esophagram was performed which demonstrates deep penetration wi th mild aspiration. IMPRESSION: 1. Mild aspiration. 2. Small fixed hiatal hernia.
== END | disposition home or self-care (01) ==
LOC: RADFLWHC 09:33
PROVIDERS: ATTEND Otolaryngology
DX: K44.9 Diaphragmatic hernia without obstruction or gangrene (principal)
CPT/HCPCS: 31579; 74220

== ENCOUNTER → 2018-03-11 | Outpatient (CLI) | payer MEDICARE, BC ==
[2018-03-11 11:14] LABS: Albumin 4.1 g/dL (3.5-5.0); Calcium 9.5 mg/dL (8.4-10.2); Potassium 4.9 mmol/L (3.5-5.1); Total Bilirubin 0.9 mg/dL (0.2-1.3)
== END | disposition home or self-care (01) ==
LOC: LABWHC1 09:34
PROVIDERS: ATTEND Internal Medicine Interventional Cardiology
DX: E78.2 Mixed hyperlipidemia (principal)
CPT/HCPCS: 36415; 80053; 80061

== ENCOUNTER → 2018-09-24 | Outpatient (CLI) | payer MEDICARE, BC ==
[2018-09-24 16:27] LABS: LDL Cholesterol,Calculated 101.4 mg/dL (0.0-131.0); VLDL Calculation 19.6 mg/dL (5.00-40.00)
== END | disposition home or self-care (01) ==
LOC: LABWHC1 09:54
PROVIDERS: ATTEND Nurse Practitioner Adult Health
DX: E78.2 Mixed hyperlipidemia (principal)
CPT/HCPCS: 36415; 80061; 84450; 84460

== ENCOUNTER 2019-02-05 22:06 | Inpatient (IN) | payer MEDICARE, BC ==
[2019-02-05] MEDS ORDERED: SODIUM CHLORIDE 0.9% 1,000 ML IV STA (22:10)
--- NOTE | 2019-02-05 22:23 | ED ---
Trauma HPI - General Stated Complaint: Fall Time Seen by Provider: 02/05/19 22:10 - History of Present Illness Initial Comments: Chito is a pleasant 83-year-old gentleman is brought to emergency Department today by EMS for evaluation of right-sided shoulder, chest wall and hip pain after fall. Around 2 PM this afternoon the patient was in a tree cutting down branches when he lost his balance, fell out of the tree falling onto his right side. Patient's family helped him into the house is hoping he would feel better however as the evening went on he continued to have worsening pain in his right side. They decided try to get him in the car to bring him to the hospital however when he attempted to move him he reported worsening pain became pale and diaphoretic at which time EMS was contacted for transfer to the hospital. - Related Data Home Medications Medication Instructions Recorded Confirmed Aspirin EC [Ecotrin Low Dose] 81 mg PO HS 04/27/15 02/05/19 Isosorbide Mononitrate ER [Imdur] 30 mg PO QAM 01/18/17 02/05/19 Cbd Oil 1 ml PO QID PRN 02/05/19 02/05/19 Losartan Potassium 50 mg PO DAILY 02/05/19 02/05/19 Simvastatin [Zocor] 10 mg PO DAILY 02/05/19 02/05/19 Previous Rx's Medication Instructions Recorded Nitroglycerin Sl Tabs [Nitrostat] 0.4 mg SUBLINGUAL Q5M PRN #25 tab 05/01/15 Allergies Allergy/AdvReac Type Severity Reaction Status Date / Time No Known Allergies Allergy Verified 02/05/19 22:39 Review of Systems ROS Statement: Those systems with pertinent positive or pertinent negative responses have been documented in the HPI. ROS Other: All systems not noted in ROS Statement are negative. Past Medical History Past Medical History: Chest Pain / Angina, GERD/Reflux, Hyperlipidemia, Hypertension, Myocardial Infarction (CT), Osteoarthritis (OA) Additional Past Medical History / Comment(s): kidney stone, TIA, HIATAL HERNIA, PALPATIONS, DDD Last Myocardial Infarction Date:: 1992 History of Any Multi-Drug Resistant Organisms: None Reported Past Surgical History: Adenoidectomy, Back Surgery, Coronary Bypass/CABG, Heart Catheterization, Hernia Repair, Tonsillectomy Additional Past Surgical History / Comment(s): LT carotid endarectomy, back surgery FUSION, SX FOR HIATAL HERNIA-PT STATED IT DID'NT WORK.X2 CABG 1982 AND 2008,HARRISON CATARACTS,REPAIR OF TORN RETINA, EGD, HARRISON INGUIANL HERNIA REPAIR, HARRISON CARPAL TUNNEL RELEASE,HARRISON ROTATOR CUFF REPAIR, CYSTOCOPY(HAD KIDNEY STONE) Past Anesthesia/Blood Transfusion Reactions: No Reported Reaction Past Psychological History: No Psychological Hx Reported Smoking Status: Never smoker Past Alcohol Use History: None Reported Past Drug Use History: None Reported - Past Family History Father Family Medical History: No Reported History Mother Family Medical History: No Reported History General Exam - General Exam Comments Initial Comments: Physical Exam GENERAL: Patient is well-developed and well-nourished. Patient is nontoxic and well-hydrated and is in no distress. HENT: Normocephalic, Atraumatic. EYES: Right pupil 2 mm reactive Left pupil 5 mm nonreactive, chronic scarring noted in the eye Extraocular movements intact PULMONARY: Unlabored respirations. No audible rales rhonchi or wheezing was noted. Midline surgical scar consistent with history of CABG Bruising to the right chest wall No palpable crepitance CARDIOVASCULAR: Regular rate and rhythm with warm and well-perfused extremities ABDOMEN: Soft and nontender with normal bowel sounds. SKIN: Bruising of the right chest wall : Normal external genitalia NEUROLOGIC: Patient is alert and oriented x3. Moving all extremities spontaneously MUSCULOSKELETAL: Normal extremities with adequate strength and full range of motion. No lower extremity swelling or edema. No calf tenderness. PSYCHIATRIC: Normal psychiatric evaluation. Course Vital Signs 02/05/19 22:06 Temperature 99 F Pulse Rate 60 Respiratory 20 Rate Blood Pressure 212/67 O2 Sat by Pulse 97 Oximetry Medical Decision Making - Medical Decision Making Level II trauma activation Patient care was discussed with surgeon avionic technician Dr. 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 Labs with some mild anemia, patient's last set of labs were greater than one year ago and hemoglobin was greater than 14 today at 12.2 and a slight computed tomography scan of the head and neck was unremarkable, computed tomography scan of the chest abdomen pelvis revealed a pelvic hematoma which abuts the bladder wall Patient was able to urinate independently he was not catheterize Urinalysis with no hematuria Patient care was discussed with urology on-call doctor came her who at this time says with no signs of obstruction, no difficulty urinating, no hematuria there is no indication for further testing for bladder injury Patient care was again discussed with Dr. light who recommends the patient be admitted to medicine for pain management and evaluation by physical therapy Patient primary care physician Dr. [facility] - Lab Data Result diagrams: 02/05/19 22:15 02/05/19 22:15 Lab Results 02/05/19 02/05/19 02/05/19 Range/Units 22:10 22:15 22:15 WBC 9.1 (3.8-10.6) k/uL RBC 4.53 (4.30-5.90) m/uL Hgb 12.2 L (13.0-17.5) gm/dL Hct 43.1 (39.0-53.0) % MCV 95.2 (80.0-100.0) fL MCH 27.0 (25.0-35.0) pg MCHC 28.3 L (31.0-37.0) g/dL RDW 14.1 (11.5-15.5) % Plt Count 152 (150-450) k/uL Neutrophils % 86 % Lymphocytes % 6 % Monocytes % 5 % Eosinophils % 1 % Basophils % 1 % Neutrophils # 7.8 H (1.3-7.7) k/uL Lymphocytes # 0.5 L (1.0-4.8) k/uL Monocytes # 0.5 (0-1.0) k/uL Eosinophils # 0.1 (0-0.7) k/uL Basophils # 0.1 (0-0.2) k/uL PT (9.0-12.0) sec INR (<1.2) APTT (22.0-30.0) sec Sodium 140 (137-145) mmol/L Potassium 5.1 (3.5-5.1) mmol/L Chloride 108 H (98-107) mmol/L Carbon Dioxide 25 (22-30) mmol/L Anion Gap 7 mmol/L BUN 37 H (9-20) mg/dL Creatinine 1.35 H (0.66-1.25) mg/dL Est GFR (CKD-EPI)AfAm 55 (>60 ml/min/1.73 sqM) Est GFR (CKD-EPI)NonAf 48 (>60 ml/min/1.73 sqM) Glucose 134 H (74-99) mg/dL Plasma Lactic Acid Ruben (0.7-2.0) mmol/L Calcium 9.3 (8.4-10.2) mg/dL Total Bilirubin 0.4 (0.2-1.3) mg/dL AST 25 (17-59) U/L ALT 23 (21-72) U/L Alkaline Phosphatase 79 (38-126) U/L Total Creatine Kinase (55-170) U/L CK-MB (CK-2) (0.0-2.4) ng/mL CK-MB (CK-2) Rel Index Troponin I (0.000-0.034) ng/mL Total Protein 7.0 (6.3-8.2) g/dL Albumin 4.2 (3.5-5.0) g/dL Amylase 103 (30-110) U/L Lipase 68 (23-300) U/L Urine Color Urine Appearance (Clear) Urine pH (5.0-8.0) Ur Specific [place] (1.001-1.035) Urine Protein (Negative) Urine Glucose (UA) (Negative) Urine Ketones (Negative) Urine Blood (Negative) Urine Nitrite (Negative) Urine Bilirubin (Negative) Urine Urobilinogen (<2.0) mg/dL Ur Leukocyte Esterase (Negative) Urine Opiates Screen (NotDetected) Ur Oxycodone Screen (NotDetected) Urine Methadone Screen (NotDetected) Ur Propoxyphene Screen (NotDetected) Ur Barbiturates Screen (NotDetected) U Tricyclic Antidepress (NotDetected) Ur Phencyclidine Scrn (NotDetected) Ur Amphetamines Screen (NotDetected) U Methamphetamines Scrn (NotDetected) U Benzodiazepines Scrn (NotDetected) Urine Cocaine Screen (NotDetected) U Marijuana (THC) Screen (NotDetected) Serum Alcohol <10 mg/dL Blood Type Blood Type Confirm O Positive Blood Type Recheck Bld Type Recheck Status Antibody Screen Spec Expiration Date 02/05/19 02/05/1919 Range/Units 22:15 22:15 22:15 WBC (3.8-10.6) k/uL RBC (4.30-5.90) m/uL Hgb (13.0-17.5) gm/dL Hct (39.0-53.0) % MCV (80.0-100.0) fL MCH (25.0-35.0) pg MCHC (31.0-37.0) g/dL RDW (11.5-15.5) % Plt Count (150-450) k/uL Neutrophils % % Lymphocytes % % Monocytes % % Eosinophils % % Basophils % % Neutrophils # (1.3-7.7) k/uL Lymphocytes # (1.0-4.8) k/uL Monocytes # (0-1.0) k/uL Eosinophils # (0-0.7) k/uL Basophils # (0-0.2) k/uL PT 10.9 (9.0-12.0) sec INR 1.0 (<1.2) APTT 20.6 L (22.0-30.0) sec Sodium (137-145) mmol/L Potassium (3.5-5.1) mmol/L Chloride (98-107) mmol/L Carbon Dioxide (22-30) mmol/L Anion Gap mmol/L BUN (9-20) mg/dL Creatinine (0.66-1.25) mg/dL Est GFR (CKD-EPI)AfAm (>60 ml/min/1.73 sqM) Est GFR (CKD-EPI)NonAf (>60 ml/min/1.73 sqM) Glucose (74-99) mg/dL Plasma Lactic Acid Ruben 1.6 (0.7-2.0) mmol/L Calcium (8.4-10.2) mg/dL Total Bilirubin (0.2-1.3) mg/dL AST (17-59) U/L ALT (21-72) U/L Alkaline Phosphatase (38-126) U/L Total Creatine Kinase 136 (55-170) U/L CK-MB (CK-2) 2.3 (0.0-2.4) ng/mL CK-MB (CK-2) Rel Index 1.7 Troponin I <0.012 (0.000-0.034) ng/mL Total Protein (6.3-8.2) g/dL Albumin (3.5-5.0) g/dL Amylase (30-110) U/L Lipase (23-300) U/L Urine Color Urine Appearance (Clear) Urine pH (5.0-8.0) Ur Specific [place] (1.001-1.035) Urine Protein (Negative) Urine Glucose (UA) (Negative) Urine Ketones (Negative) Urine Blood (Negative) Urine Nitrite (Negative) Urine Bilirubin (Negative) Urine Urobilinogen (<2.0) mg/dL Ur Leukocyte Esterase (Negative) Urine Opiates Screen (NotDetected) Ur Oxycodone Screen (NotDetected) Urine Methadone Screen (NotDetected) Ur Propoxyphene Screen (NotDetected) Ur Barbiturates Screen (NotDetected) U Tricyclic Antidepress (NotDetected) Ur Phencyclidine Scrn (NotDetected) Ur Amphetamines Screen (NotDetected) U Methamphetamines Scrn (NotDetected) U Benzodiazepines Scrn (NotDetected) Urine Cocaine Screen (NotDetected) U Marijuana (THC) Screen (NotDetected) Serum Alcohol mg/dL Blood Type Blood Type Confirm Blood Type Recheck Bld Type Recheck Status Antibody Screen Spec Expiration Date 02/05/19 02/05/19 Range/Units 22:15 23:27 WBC (3.8-10.6) k/uL RBC (4.30-5.90) m/uL Hgb (13.0-17.5) gm/dL Hct (39.0-53.0) % MCV (80.0-100.0) fL MCH (25.0-35.0) pg MCHC (31.0-37.0) g/dL RDW (11.5-15.5) % Plt Count (150-450) k/uL Neutrophils % % Lymphocytes % % Monocytes % % Eosinophils % % Basophils % % Neutrophils # (1.3-7.7) k/uL Lymphocytes # (1.0-4.8) k/uL Monocytes # (0-1.0) k/uL Eosinophils # (0-0.7) k/uL Basophils # (0-0.2) k/uL PT (9.0-12.0) sec INR (<1.2) APTT (22.0-30.0) sec Sodium (137-145) mmol/L Potassium (3.5-5.1) mmol/L Chloride (98-107) mmol/L Carbon Dioxide (22-30) mmol/L Anion Gap mmol/L BUN (9-20) mg/dL Creatinine (0.66-1.25) mg/dL Est GFR (CKD-EPI)AfAm (>60 ml/min/1.73 sqM) Est GFR (CKD-EPI)NonAf (>60 ml/min/1.73 sqM) Glucose (74-99) mg/dL Plasma Lactic Acid Ruben (0.7-2.0) mmol/L Calcium (8.4-10.2) mg/dL Total Bilirubin (0.2-1.3) mg/dL AST (17-59) U/L ALT (21-72) U/L Alkaline Phosphatase (38-126) U/L Total Creatine Kinase (55-170) U/L CK-MB (CK-2) (0.0-2.4) ng/mL CK-MB (CK-2) Rel Index Troponin I (0.000-0.034) ng/mL Total Protein (6.3-8.2) g/dL Albumin (3.5-5.0) g/dL Amylase (30-110) U/L Lipase (23-300) U/L Urine Color Light Yellow Urine Appearance Clear (Clear) Urine pH 6.0 (5.0-8.0) Ur Specific [place] 1.039 H (1.001-1.035) Urine Protein Negative (Negative) Urine Glucose (UA) Negative (Negative) Urine Ketones Negative (Negative) Urine Blood Negative (Negative) Urine Nitrite Negative (Negative) Urine Bilirubin Negative (Negative) Urine Urobilinogen <2.0 (<2.0) mg/dL Ur Leukocyte Esterase Negative (Negative) Urine Opiates Screen Not Detected (NotDetected) Ur Oxycodone Screen Not Detected (NotDetected) Urine Methadone Screen Not Detected (NotDetected) Ur Propoxyphene Screen Not Detected (NotDetected) Ur Barbiturates Screen Not Detected (NotDetected) U Tricyclic Antidepress Not Detected (NotDetected) Ur Phencyclidine Scrn Not Detected (NotDetected) Ur Amphetamines Screen Not Detected (NotDetected) U Methamphetamines Scrn Not Detected (NotDetected) U Benzodiazepines Scrn Not Detected (NotDetected) Urine Cocaine Screen Not Detected (NotDetected) U Marijuana (THC) Screen Detected H (NotDetected) Serum Alcohol mg/dL Blood Type O Positive Blood Type Confirm Blood Type Recheck No Previous Record Bld Type Recheck Status CABO Indicated Antibody Screen NEGATIVE Spec Expiration Date 02/08/2019 - 9496 - EKG Data -: EKG Interpreted by Me EKG Comments: EKG obtained as part of the trauma workup, EKG obtained at 2212, rate of 63 rhythm is sinus there is incomplete left bundle-branch block, [place] 150, care is 118, QTC is 395 there are no acute ST elevations or depressions no evidence of acute ischemia or infarction. Disposition Clinical Impression: Fall, Pelvic hematoma, Anemia Disposition: ADMITTED IP TO THIS [facility] Condition: Stable Referrals: None,Stated [REFERRING] - 1-2 days
[2019-02-05 22:29] LABS: Basophils # (A) 0.1 k/uL (0-0.2); Basophils % (A) 1 %; Eosinophils # (A) 0.1 k/uL (0-0.7); Eosinophils % (A) 1 %; HCT 43.1 % (39.0-53.0); HGB 12.2 gm/dL (13.0-17.5); Lymphocytes # (A) 0.5 k/uL (1.0-4.8); Lymphocytes % (A) 6 %; MCHC 28.3 g/dL (31.0-37.0); MCV 95.2 fL (80.0-100.0); Mean Platelet Volume 6.9; Monocytes # (A) 0.5 k/uL (0-1.0); Monocytes % (A) 5 %; Neutrophils # (A) 7.8 k/uL (1.3-7.7); Neutrophils % (A) 86 %; Platelet Count 152 k/uL (150-450); RBC 4.53 m/uL (4.30-5.90); RDW 14.1 % (11.5-15.5); WBC 9.1 k/uL (3.8-10.6)
[2019-02-05 22:39] LABS: ALT 23 U/L (21-72); AST 25 U/L (17-59); African American GFR (CKD) 55 (>60 ml/min/1.73 sqM); Albumin 4.2 g/dL (3.5-5.0); Alcohol <10 mg/dL; Alkaline Phosphatase 79 U/L (38-126); Amylase 103 U/L (30-110); Anion Gap 7 mmol/L; Blood Urea Nitrogen 37 mg/dL (9-20); Calcium 9.3 mg/dL (8.4-10.2); Carbon Dioxide 25 mmol/L (22-30); Chloride 108 mmol/L (98-107); Glucose 134 mg/dL (74-99); Potassium 5.1 mmol/L (3.5-5.1); Sodium 140 mmol/L (137-145); Total Bilirubin 0.4 mg/dL (0.2-1.3)
--- NOTE | 2019-02-05 22:41 | XR ---
INDICATION: Trauma. COMPARISON: None FINDINGS: AP views of the pelvis are provided. The sacroiliac joints, hip joints, and pubic symphysis are normally aligned. Evaluation of the sacrum is limited by overlying bowel gas/stool. There is no evidence of acute fracture or malalignment. There are postoperative changes in the lumbar spine. Vascular calcifications are noted. IMPRESSION: No fracture or subluxation.
--- NOTE | 2019-02-05 22:44 | XR ---
INDICATION: Trauma COMPARISON: CXR 01/18/17 FINDINGS: Single frontal view of the chest is provided. There are postoperative changes of midline sternotomy and CABG. The heart is normal in size. Pulmonary vascularity is normal. The lungs are clear. There is no effusion or pneumothorax. There are no acute osseous findings. IMPRESSION: No acute cardiopulmonary disease.
[2019-02-05 22:45] LABS: Prothrombin Time 10.9 sec (9.0-12.0)
[2019-02-05 22:49] LABS: Partial Thromboplastin Time 20.6 sec (22.0-30.0)
[2019-02-05 22:56] LABS: Creatine Kinase 136 U/L (55-170)
--- NOTE | 2019-02-05 23:06 | CT ---
INDICATION: Trauma TECHNIQUE: CT acquisition is performed through the brain and cervical spine. Coronal and sagittal reformatted images are provided. No IV contrast is administered. DOSE INFORMATION: DLP 1336.9 mGy-cm. This CT exam was performed using one or more of the following dose reduction techniques: automated exposure control, adjustment of the mA and/or kV according to patient size, and/or use of iterative reconstruction technique. COMPARISON: CT head 11/01/17. FINDINGS: CT Head: Generalized involutional and chronic small vessel ischemic changes are stable from prior exam. There is no evidence of acute intracranial hemorrhage or abnormal extra-axial fluid collection. There is no mass effect or midline shift. The warren-white matter differentiation is preserved. The calvarium is intact. Sinuses and mastoid air cells are clear. CT C Spine: Craniocervical and atlantoaxial relationships are maintained. Vertebral body height and alignment are preserved. There is no evidence of acute fracture or subluxation. There is multilevel degenerative disc disease, moderate at C5-C6. There is no prevertebral soft tissue swelling. Lung apices are clear. IMPRESSION: 1. CT Head: No evidence of acute intracranial process. 2. CT C Spine: No acute osseous findings.
[2019-02-05 23:08] LABS: Creatine Kinase MB 2.3 ng/mL (0.0-2.4); Troponin I <0.012 ng/mL (0.000-0.034)
--- NOTE | 2019-02-05 23:17 | CT ---
INDICATION: Trauma TECHNIQUE: CT acquisition is performed through the chest, abdomen, and pelvis following the administration of 100 mL Isovue-300 IV contrast. Coronal and sagittal reformatted images are provided. DOSE INFORMATION: DLP 6747.7 mGy-cm. This CT exam was performed using one or more of the following dose reduction techniques: automated exposure control, adjustment of the mA and/or kV according to patient size, and/or use of iterative reconstruction technique. COMPARISON: None. FINDINGS: CT Chest: There are postoperative changes of midline sternotomy and CABG. The heart is enlarged. There is no pericardial effusion. There is no adenopathy. There is atherosclerosis of the thoracic aorta and coronary arteries. There is no thoracic aortic aneurysm. There is no evidence of acute traumatic aortic injury. The main pulmonary artery is normal in caliber. There are minor atelectatic changes in the dependent lower lobes. A calcified granuloma is identified in the left upper lobe. The lungs appear otherwise clear. There is no pleural effusion or pneumothorax. There is a small sliding-type hiatal hernia. There are no acute osseous findings. CT Abdomen + Pelvis: The liver, gallbladder, spleen, pancreas, and adrenal glands are unremarkable. The kidneys enhance symmetrically. There are multiple bilateral renal cysts, the largest in the right kidney measuring 9 cm in greatest dimension. There is no hydronephrosis. There is aortoiliac and mesenteric arterial atherosclerosis without evidence of aneurysm or traumatic aortic injury. There is no adenopathy. There is a 5 x 5 x 8 cm heterogeneously hyperdense collection anterior and superior to the urinary bladder suggesting a hematoma. No active contrast extravasation is identified within the hematoma. The hematoma abuts the anterior urinary bladder wall, which appears mildly thickened. There is no evidence of bowel obstruction, inflammation, or injury. There is no free air. There are extensive postoperative changes of the lumbar spine consisting of posterior decompression and posterior osteometallic fusion from L1-L5. There is severe degenerative disc disease above the level of fusion at T12-L1. Hardware appears intact. There are no acute osseous findings. IMPRESSION: 1. Hematoma measuring 5 x 5 x 8 cm anterior/superior to the urinary bladder. No active bleeding identified. The hematoma abuts the anterior bladder wall, which appears thickened. Exclusion of bladder injury is not possible. Consider CT cystography for further evaluation. 2. Otherwise, no evidence of acute traumatic injury in the chest, abdomen, or pelvis. 3. Incidental findings, as above. <MYCVCSECTION> [employer] 02/05/19 23:18 Call Doctor Regarding Other, called Dr. Jimenez on 02/05 23:18 (-04:00)
[2019-02-05 23:40] LABS: Appearance,Urine Clear (Clear); Bilirubin,Urine Negative (Negative); Blood,Urine Negative (Negative); Color,Urine Light Yellow; Glucose,Urine (UA) Negative (Negative); Ketones,Urine Negative (Negative); Leukocyte Esterase,Urine Negative (Negative); Nitrite,Urine Negative (Negative); Protein,Urine Negative (Negative); Specific Gravity,Urine 1.039 (1.001-1.035); Urobilinogen,Urine <2.0 mg/dL (<2.0)
[2019-02-05 23:51] LABS: Amphetamine Screen,Urine Not Detected (NotDetected); Barbiturate Screen,Urine Not Detected (NotDetected); Benzodiazepines Screen,Urine Not Detected (NotDetected); Cocaine Screen,Urine Not Detected (NotDetected); Methadone Screen, Urine Not Detected (NotDetected); Opiate Screen,Urine Not Detected (NotDetected); Oxycodone Screen, Urine Not Detected (NotDetected); Phencyclidine Screen,Urine Not Detected (NotDetected); Tricyclic Antidepressant,Urine Not Detected (NotDetected); Urn Cannabinoid Scrn Detected (NotDetected)
[2019-02-06] MEDS ORDERED: MORPHINE SULFATE 4 MG/ML SYRINGE IVP STA (01:13)
[2019-02-06] MEDS ORDERED: ACETAMINOPHEN TAB 325 MG TAB PO PRN (01:14)
[2019-02-06] MEDS ORDERED: ONDANSETRON 4 MG/2 ML VIAL IVP PRN (01:14)
[2019-02-06] MEDS ORDERED: NALOXONE 0.4 MG/ML 1 ML VIAL IV PRN (01:14)
[2019-02-06] MEDS: MORPHINE SULFATE 4 MG/ML SYRINGE IV PRN ×3 (03:00→19:47)
[2019-02-06] MEDS ORDERED: NITROGLYCERIN SL TABS 0.4 MG TAB SUBLINGUAL PRN (11:11)
[2019-02-06] MEDS ORDERED: SENNOSIDES 8.6 MG TAB PO PRN (11:12)
[2019-02-06] MEDS ORDERED: POLYETHYLENE GLYCOL 3350 17 GM POWD.PACK PO PRN (11:12)
--- NOTE | 2019-02-06 12:19 | P.GSCN ---
History of Present Illness Consult date: 02/06/19 History of present illness: This is a 83-year-old male who was cutting down limbs from a tree when he fell out of the pocket approximately 8 feet per him and his . This happened in the afternoon he did not present to the hospital until 10 hours later. His chief complaint is suprapubic pain. He denies loss of consciousness GCS is 15. He states that he has a difficult time and cannot ambulate due to pain. He denies pain in urination he denies blood in his urine. He denies any other pains. No difficulty breathing no chest pain. Computed tomography scan had chest abdomen and pelvis did not reveal any traumatic injury outside is a small hematoma suprapubic just anterior to the extraperitoneal bladder. Past Medical History Past Medical History: Chest Pain / Angina, GERD/Reflux, Hyperlipidemia, Hypertension, Myocardial Infarction ([place]), Osteoarthritis (OA) Additional Past Medical History / Comment(s): kidney stone, TIA, HIATAL HERNIA, PALPATIONS, DDD Last Myocardial Infarction Date:: 1992 History of Any Multi-Drug Resistant Organisms: None Reported Past Surgical History: Adenoidectomy, Back Surgery, Coronary Bypass/CABG, Heart Catheterization, Hernia Repair, Tonsillectomy Additional Past Surgical History / Comment(s): LT carotid endarectomy, back surgery FUSION, SX FOR HIATAL HERNIA-PT STATED IT DID'NT WORK.X2 CABG 1982 AND 2008,HARRISON CATARACTS,REPAIR OF TORN RETINA, EGD, HARRISON INGUIANL HERNIA REPAIR, HARRISON CARPAL TUNNEL RELEASE,HARRISON ROTATOR CUFF REPAIR, CYSTOCOPY(HAD KIDNEY STONE) Past Anesthesia/Blood Transfusion Reactions: No Reported Reaction Past Psychological History: No Psychological Hx Reported Additional Psychological History / Comment(s): PT LIVES AT HOME WITH HIS , IS RETIRED,USED TO WORK COMPUTER/ELECTRONIC REPAIRMAN, NO SERVICE. PT INDEPENDANT BUT HAS STARTED TO USE A CANE WHEN UP. Smoking Status: Never smoker Past Alcohol Use History: None Reported Past Drug Use History: None Reported - Past Family History Father Family Medical History: No Reported History Mother Family Medical History: No Reported History Medications and Allergies Home Medications Medication Instructions Recorded Confirmed Type Aspirin EC [Ecotrin Low Dose] 81 mg PO HS 04/27/15 02/05/19 History Nitroglycerin Sl Tabs [Nitrostat] 0.4 mg SUBLINGUAL Q5M PRN #25 tab 05/01/15 02/05/19 Rx Isosorbide Mononitrate ER [Imdur] 30 mg PO QAM 01/18/17 02/05/19 History Cbd Oil 1 ml PO QID PRN 02/05/19 02/05/19 History Losartan Potassium 50 mg PO DAILY 02/05/19 02/05/19 History Simvastatin [Zocor] 10 mg PO DAILY 02/05/19 02/05/19 History Allergies Allergy/AdvReac Type Severity Reaction Status Date / Time No Known Allergies Allergy Verified 02/05/19 22:39 Surgical - Exam Osteopathic Statement: *. No significant issues noted on an osteopathic structural exam other than those noted in the History and Physical/Consult. Vital Signs Temp Pulse Resp BP Pulse Ox 99 F 60 20 212/67 97 02/05/19 22:06 02/05/19 22:06 02/05/19 22:06 02/05/19 22:06 02/05/19 22:06 - General well developed, well nourished, no distress - Neck trachea midline - Respiratory normal expansion, normal respiratory effort - Cardiovascular Rhythm: regular - Abdomen Abdomen is nontender there is suprapubic tenderness. No rebound rigidity or guarding. Abdomen: soft - Neurologic normal coordination, normal sensation - Psychiatric oriented to time, oriented to person, oriented to place Results - Labs 02/05/19 22:15 02/05/19 22:15 Abnormal Lab Results - Last 24 Hours (Table) 02/05/19 02/05/19 02/05/19 Range/Units 22:15 22:15 22:15 Hgb 12.2 L (13.0-17.5) gm/dL MCHC 28.3 L (31.0-37.0) g/dL Neutrophils # 7.8 H (1.3-7.7) k/uL Lymphocytes # 0.5 L (1.0-4.8) k/uL APTT 20.6 L (22.0-30.0) sec Chloride 108 H (98-107) mmol/L BUN 37 H (9-20) mg/dL Creatinine 1.35 H (0.66-1.25) mg/dL Glucose 134 H (74-99) mg/dL Ur Specific [place] (1.001-1.035) U Marijuana (THC) Screen (NotDetected) 02/05/19 Range/Units 23:27 Hgb (13.0-17.5) gm/dL MCHC (31.0-37.0) g/dL Neutrophils # (1.3-7.7) k/uL Lymphocytes # (1.0-4.8) k/uL APTT (22.0-30.0) sec Chloride (98-107) mmol/L BUN (9-20) mg/dL Creatinine (0.66-1.25) mg/dL Glucose (74-99) mg/dL Ur Specific [place] 1.039 H (1.001-1.035) U Marijuana (THC) Screen Detected H (NotDetected) Diabetes panel 02/05/19 Range/Units 22:15 Sodium 140 (137-145) mmol/L Potassium 5.1 (3.5-5.1) mmol/L Chloride 108 H (98-107) mmol/L Carbon Dioxide 25 (22-30) mmol/L BUN 37 H (9-20) mg/dL Creatinine 1.35 H (0.66-1.25) mg/dL Glucose 134 H (74-99) mg/dL Calcium 9.3 (8.4-10.2) mg/dL AST 25 (17-59) U/L ALT 23 (21-72) U/L Alkaline Phosphatase 79 (38-126) U/L Total Protein 7.0 (6.3-8.2) g/dL Albumin 4.2 (3.5-5.0) g/dL Calcium panel 02/05/19 Range/Units 22:15 Calcium 9.3 (8.4-10.2) mg/dL Albumin 4.2 (3.5-5.0) g/dL Pituitary panel 02/05/19 Range/Units 22:15 Sodium 140 (137-145) mmol/L Potassium 5.1 (3.5-5.1) mmol/L Chloride 108 H (98-107) mmol/L Carbon Dioxide 25 (22-30) mmol/L BUN 37 H (9-20) mg/dL Creatinine 1.35 H (0.66-1.25) mg/dL Glucose 134 H (74-99) mg/dL Calcium 9.3 (8.4-10.2) mg/dL Adrenal panel 02/05/19 Range/Units 22:15 Sodium 140 (137-145) mmol/L Potassium 5.1 (3.5-5.1) mmol/L Chloride 108 H (98-107) mmol/L Carbon Dioxide 25 (22-30) mmol/L BUN 37 H (9-20) mg/dL Creatinine 1.35 H (0.66-1.25) mg/dL Glucose 134 H (74-99) mg/dL Calcium 9.3 (8.4-10.2) mg/dL Total Bilirubin 0.4 (0.2-1.3) mg/dL AST 25 (17-59) U/L ALT 23 (21-72) U/L Alkaline Phosphatase 79 (38-126) U/L Total Protein 7.0 (6.3-8.2) g/dL Albumin 4.2 (3.5-5.0) g/dL Assessment and Plan Assessment: Hematoma anterior to the bladder. Pelvic pain with ambulation. Plan: Although extraperitoneal bladder rupture highly unlikely I do recommend CT cystogram secondary to the location of the abnormality on CT along with the patient's complaints of pain. Patient is having a difficult time ambulating recommend orthopedic surgery consult if further concern persists. No plans for acute surgical intervention.
--- NOTE | 2019-02-06 12:21 | P.HPIM ---
History of Present Illness patient is a pleasant 83-year-old gentleman came in after he injured himself cutting tree branch with the [employer] a tractor. Patient is comparing of pain in the right groin area patient is found to have a hematomabit anterior to the urinary bladder. Patient is pain is better controlled now.urology was consult. I do not believe there will be any intervention at this time but patient will be monitored today. Pain is better controlled will be discharged tomorrow multiple CAT scans as a part of trauma workup was done which was all negative. Review of Systems REVIEW OF SYSTEMS: CONSTITUTIONAL: No fever, no malaise, no fatigue. HEENT: No recent visual problems or hearing problems. Denied any sore throat. CARDIOVASCULAR: No chest pain, orthopnea, PND, no palpitations, no syncope. PULMONARY: No shortness of breath, no cough, no hemoptysis. GASTROINTESTINAL: No diarrhea, no nausea, no vomiting, no abdominal pain. NEUROLOGICAL: No headaches, no weakness, no numbness. HEMATOLOGICAL: Denies any bleeding or petechiae. GENITOURINARY: Denies any burning micturition, frequency, or urgency. MUSCULOSKELETAL/RHEUMATOLOGICAL: Denies any joint pain, swelling, or any muscle pain. pain in the right groin area ENDOCRINE: Denies any polyuria or polydipsia. The rest of the 14-point review of systems is negative. Past Medical History Past Medical History: Chest Pain / Angina, GERD/Reflux, Hyperlipidemia, Hypertension, Myocardial Infarction ([place]), Osteoarthritis ([place]) Additional Past Medical History / Comment(s): kidney stone, TIA, HIATAL HERNIA, PALPATIONS, DDD Last Myocardial Infarction Date:: 1992 History of Any Multi-Drug Resistant Organisms: None Reported Past Surgical History: Adenoidectomy, Back Surgery, Coronary Bypass/CABG, Heart Catheterization, Hernia Repair, Tonsillectomy Additional Past Surgical History / Comment(s): LT carotid endarectomy, back surgery FUSION, SX FOR HIATAL HERNIA-PT STATED IT DID'NT WORK.X2 CABG 1982 AND 2008,HARRISON CATARACTS,REPAIR OF TORN RETINA, EGD, HARRISON INGUIANL HERNIA REPAIR, HARRISON CARPAL TUNNEL RELEASE,HARRISON ROTATOR CUFF REPAIR, CYSTOCOPY(HAD KIDNEY STONE) Past Anesthesia/Blood Transfusion Reactions: No Reported Reaction Past Psychological History: No Psychological Hx Reported Additional Psychological History / Comment(s): PT LIVES AT HOME WITH HIS , IS RETIRED,USED TO WORK COMPUTER/ELECTRONIC REPAIRMAN, NO SERVICE. PT INDEPENDANT BUT HAS STARTED TO USE A CANE WHEN UP. Smoking Status: Never smoker Past Alcohol Use History: None Reported Past Drug Use History: None Reported - Past Family History Father Family Medical History: No Reported History Mother Family Medical History: No Reported History Medications and Allergies Home Medications Medication Instructions Recorded Confirmed Type Aspirin EC [Ecotrin Low Dose] 81 mg PO HS 04/27/15 02/05/19 History Nitroglycerin Sl Tabs [Nitrostat] 0.4 mg SUBLINGUAL Q5M PRN #25 tab 05/01/15 02/05/19 Rx Isosorbide Mononitrate ER [Imdur] 30 mg PO QAM 01/18/17 02/05/19 History Cbd Oil 1 ml PO QID PRN 02/05/19 02/05/19 History Losartan Potassium 50 mg PO DAILY 02/05/19 02/05/19 History Simvastatin [Zocor] 10 mg PO DAILY 02/05/19 02/05/19 History Allergies Allergy/AdvReac Type Severity Reaction Status Date / Time No Known Allergies Allergy Verified 02/05/19 22:39 Physical Exam Vitals: Vital Signs Temp Pulse Pulse Resp BP BP Pulse Ox 02/06/19 08:04 97.7 F 65 18 112/66 97 02/06/19 02:45 98.3 F 72 18 147/69 95 02/06/19 02:30 98.7 F 85 18 133/73 97 02/06/19 01:30 98.1 F 73 20 132/73 97 02/05/19 22:06 99 F 60 20 212/67 97 Intake and Output 02/05/19 02/06/19 02/06/19 22:59 06:59 14:59 Other: Voiding Method Urinal Weight 149.7 kg PHYSICAL EXAMINATION: GENERAL: The patient is alert and oriented x3, not in any acute distress. Well developed, well nourished. HEENT: Pupils are round and equally reacting to light. EOMI. No scleral icterus. No conjunctival pallor. Normocephalic, atraumatic. No pharyngeal erythema. No thyromegaly. CARDIOVASCULAR: S1 and S2 present. No murmurs, rubs, or gallops. PULMONARY: Chest is clear to auscultation, no wheezing or crackles. ABDOMEN: Soft, nontender, nondistended, normoactive bowel sounds. No palpable organomegaly. MUSCULOSKELETAL: No joint swelling or deformity. EXTREMITIES: No cyanosis, clubbing, or pedal edema. NEUROLOGICAL: Gross neurological examination did not reveal any focal deficits. SKIN: No rashes. Results CBC & Chem 7: 02/05/19 22:15 02/05/19 22:15 Labs: Abnormal Lab Results - Last 24 Hours (Table) 02/05/19 02/05/19 02/05/19 Range/Units 22:15 22:15 22:15 Hgb 12.2 L (13.0-17.5) gm/dL MCHC 28.3 L (31.0-37.0) g/dL Neutrophils # 7.8 H (1.3-7.7) k/uL Lymphocytes # 0.5 L (1.0-4.8) k/uL APTT 20.6 L (22.0-30.0) sec Chloride 108 H (98-107) mmol/L BUN 37 H (9-20) mg/dL Creatinine 1.35 H (0.66-1.25) mg/dL Glucose 134 H (74-99) mg/dL Ur Specific [place] (1.001-1.035) U Marijuana (THC) Screen (NotDetected) 02/05/19 Range/Units 23:27 Hgb (13.0-17.5) gm/dL MCHC (31.0-37.0) g/dL Neutrophils # (1.3-7.7) k/uL Lymphocytes # (1.0-4.8) k/uL APTT (22.0-30.0) sec Chloride (98-107) mmol/L BUN (9-20) mg/dL Creatinine (0.66-1.25) mg/dL Glucose (74-99) mg/dL Ur Specific [place] 1.039 H (1.001-1.035) U Marijuana (THC) Screen Detected H (NotDetected) Thrombosis Risk Factor Assmnt - Choose All That Apply Each Risk Factor Represents 3 Points: Age 75 years or older Thrombosis Risk Factor Assessment Total Risk Factor Score: 3 Thrombosis Risk Factor Assessment Level: Moderate Risk Assessment and Plan Plan: -trauma and hematoma near the bladder area: Conservative management and monitoring hemoglobin monitoring clinically, urology will evaluate the patient. -Right groin pain secondary to trauma and possible musculoskeletal injury, supportive care. -Acute renal failure prerenal azotemia due to intravascular depletion I suspicion is low for rhabdomyolysis, CKs within normal limits continue with IV fluids. 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 Because of hematoma patient will obtain due to prophylaxis early ambulation
[2019-02-06] MEDS: SODIUM CHLORIDE 0.9% 1,000 ML IV SCH ×2 (13:09→18:00)
[2019-02-06] MEDS: HYDROcodone/APAP 5-325MG 1 EACH TAB PO PRN (14:40)
--- NOTE | 2019-02-06 17:04 | CT ---
EXAMINATION TYPE: CT abdomen pelvis, cystogram DATE OF EXAM: 02/06/2019 COMPARISON: 02/05/2019 HISTORY: 83-year-old male with pain, R/O BLADDER RUPTURE TECHNIQUE: Contiguous axial scanning of the abdomen and pelvis without IV contrast. 1 80 mL of Isovue diluted water injected through the patient's Khoury catheter. Full bladder and postvoid images are ob tained along with coronal/sagittal reconstructions performed. CT DLP: 1055.5 mGycm Automated exposure control for dose reduction was used. FINDINGS: Median sternotomy wires are present. Heart normal size without pericardial effusion. Moderate-sized h iatal hernia. Prominent strandy bibasilar atelectasis without pleural effusion. Noncontrast images of the liver shows a hepatic dome cyst. There may be some vicarious excretion of c ontrast into the biliary tree with a dense material in the nondistended gallbladder. Adrenal glands, spleen, and pancreas show no gross abnormality by noncontrast technique. Moderate-sized fat-containing ventral midline supra umbilical hernia measuring 3.2 cm wide in the abd ominal wall defect measuring 1.2 cm wide, similar from yesterday. Bilateral renal cysts measuring up to 8.8 cm. Moderate to severe atherosclerotic calcifications abdominal aorta, visceral arteries, and iliac arter ies. No dilated small bowel, free fluid, or free air. No significant stool burden. There is extensive extraperitoneal hematoma especially anterior and to the left of the bladder. The F oley catheter is in place within a trabeculated, mildly thickened bladder which is opacified with con trast and distended. Mild extravasation of contrast is noted at the level of the prostatic urethra. Prominent presacral edema/swelling. Hematoma currently measures up to 12.0 cm craniocaudal by 4.9 cm AP by 10.3 cm wide, refer to sagittal image 70 and axial image 67. This is in comparison to 9.6 x 3.2 x 7.8 cm yesterday. No free pelvic fluid seen. Bones: Mild degenerative changes of the hips and SI joints. Subtle vertical fracture suggested of the right sacral alar, reference axial image 59. No other acute pelvic fracture is seen. Status post L1-L5 posterior fusion with laminectomies and advanced degenerative change above the fusi on at T12-L1. Grade 1 anterolisthesis here. IMPRESSION: 1. SOME URINE/CONTRAST EXTRAVASATION AT THE LEVEL OF THE PROSTATIC URETHRA. 2. LARGE EXTRAPERITONEAL PELVIC HEMATOMA LIKELY A CONSEQUENCE OF THE BLADDER/URETHRAL INJURY HAS E NLARGED (CURRENTLY 12.0 X 4.9 X 10.3 CM VERSUS 9.6 X 3.2 X 7.8 CM YESTERDAY). 3. SUBTLE ZONE 1 RIGHT SACRAL ALAR FRACTURE.
[2019-02-07 07:53] LABS: Calcium 8.2 mg/dL (8.4-10.2); Total Bilirubin 0.6 mg/dL (0.2-1.3); Total Protein 5.5 g/dL (6.3-8.2)
[2019-02-07 07:56] LABS: Basophils # (A) 0.1 k/uL (0-0.2); Basophils % (A) 1 %; Eosinophils # (A) 0.3 k/uL (0-0.7); Eosinophils % (A) 3 %; Lymphocytes # (A) 1.1 k/uL (1.0-4.8); Lymphocytes % (A) 13 %; MCH 30.6 pg (25.0-35.0); MCHC 31.8 g/dL (31.0-37.0); MCV 96.3 fL (80.0-100.0); Mean Platelet Volume 7.9; Monocytes # (A) 0.5 k/uL (0-1.0); Monocytes % (A) 6 %; Neutrophils # (A) 6.7 k/uL (1.3-7.7); Neutrophils % (A) 75 %; Platelet Count 121 k/uL (150-450); RBC 2.91 m/uL (4.30-5.90); RDW 14.5 % (11.5-15.5); WBC 8.9 k/uL (3.8-10.6)
[2019-02-07 07:58] LABS: HGB 8.9 gm/dL (13.0-17.5)
[2019-02-07 08:37] LABS: Potassium 5.3 mmol/L (3.5-5.1)
[2019-02-07] MEDS: ATORVASTATIN 10 MG TAB PO SCH (09:04)
[2019-02-07] MEDS: HYDROcodone/APAP 5-325MG 1 EACH TAB PO PRN ×2 (09:04→14:00)
[2019-02-07] MEDS: ISOSORBIDE MONONITRATE ER 30 MG TAB.ER.24H PO SCH (09:04)
[2019-02-07] MEDS: SODIUM CHLORIDE 0.9% 1,000 ML IV SCH ×2 (09:05→17:38)
--- NOTE | 2019-02-07 10:44 | P.PN ---
Subjective 84-year-old came in after trauma patient found to have a big hematoma in the urinary bladder area. Patient repeat CAT scan was suspicious for extravasation of urine normally neurology evaluated the patient they did not believe patient will need intervention and please refer to the documentation for further details. Patient is quite weak. patient's hemoglobin will be monitored repeat urine T will evaluate the patient. Patient had a bowel movement still in significant amount of pain in the right leg. Orthopedic surgery will evaluate the patient is alert. Hemoglobin did drop but not to the point requiring blood transfusion. Constitutional: Denied any fatigue denied any fever. Cardio vascular: denied any chest pain, palpitations Gastrointestinal denied any nausea vomiting Pulmonary: Denied any shortness of breath cough Neurologic denied any new focal deficits All inpatient medications were reviewed and appropriate changes in these medications as dictated in the interval history and assessment and plan. Objective - Vital Signs Vital signs: Vital Signs Temp 98.5 F 02/07/19 07:00 Pulse 81 02/07/19 07:00 Resp 16 02/07/19 07:00 BP 169/53 02/07/19 07:00 Pulse Ox 96 02/07/19 07:00 Intake & Output 02/06/19 02/07/19 02/07/19 18:59 06:59 18:59 Intake Total 60 Output Total 300 Balance -240 Intake: Oral 60 Output: Urine 300 Other: Voiding Method Indwelling Catheter Indwelling Catheter Indwelling Catheter # Voids 2 - Exam PHYSICAL EXAMINATION: GENERAL: The patient is alert and oriented x3, not in any acute distress. Well developed, well nourished. HEENT: Pupils are round and equally reacting to light. EOMI. No scleral icterus. No conjunctival pallor. Normocephalic, atraumatic. No pharyngeal erythema. No thyromegaly. CARDIOVASCULAR: S1 and S2 present. No murmurs, rubs, or gallops. PULMONARY: Chest is clear to auscultation, no wheezing or crackles. ABDOMEN: Soft, nontender, nondistended, normoactive bowel sounds. No palpable organomegaly. MUSCULOSKELETAL: No joint swelling or deformity. EXTREMITIES: No cyanosis, clubbing, or pedal edema. NEUROLOGICAL: Gross neurological examination did not reveal any focal deficits. SKIN: No rashes. - Labs CBC & Chem 7: 02/07/19 06:54 02/07/19 06:54 Labs: Abnormal Lab Results - Last 24 Hours (Table) 02/07/19 02/07/19 Range/Units 06:54 06:54 RBC 2.91 L (4.30-5.90) m/uL Hgb 8.9 L D (13.0-17.5) gm/dL Hct 28.0 L (39.0-53.0) % Plt Count 121 L (150-450) k/uL Potassium 5.3 H (3.5-5.1) mmol/L Chloride 112 H (98-107) mmol/L Carbon Dioxide 21 L (22-30) mmol/L BUN 44 H (9-20) mg/dL Creatinine 1.56 H (0.66-1.25) mg/dL Glucose 100 H (74-99) mg/dL Calcium 8.2 L (8.4-10.2) mg/dL Total Protein 5.5 L (6.3-8.2) g/dL Albumin 3.0 L (3.5-5.0) g/dL Assessment and Plan Plan: -trauma and hematoma near the bladder area: Conservative management and monitoring hemoglobin monitoring clinically, urology will evaluate the patient.neurology evaluated for possible extravasation of urine although no further attention is being recommended by them -Right groin pain secondary to trauma and possible musculoskeletal injury, supportive care. -Acute renal failure prerenal azotemia due to intravascular depletion I s uspicion is low for rhabdomyolysis, CKs within normal limits continue with IV fluids. Patient does have chronic kidney disease stage II to 3his creatinine continued to get worse warfarin with IV fluids and recheck the creatinine tomorrow -gastroesophageal reflux disease -Hyperlipidemia -Hypertension -Coronary artery disease For above-mentioned chronic medical problems patient will be resumed and continued on home medications. Because of hematoma patient will obtain due to prophylaxis early ambulation
--- NOTE | 2019-02-07 11:05 | P.GSCN ---
History of Present Illness Consult date: 02/07/19 Reason for Consult: Possible traumatic bladder or urethral injury History of present illness: The patient is a 83-year-old male who was trimming some tree branches from the pocket of a front unloader early in the afternoon of 02/05. The patient said that he accidentally hit the control sometime around 2:30 in the afternoon which dumped him out of the bucket and he fell approximately 10 feet to the ground. He said he landed on his left side. There was no loss of consciousness. The patient required help getting into a car and back into his house. He continued to have abdominal pain and said he was unable to walk and presented to the [facility] room that evening where he was evaluated. The patient was voiding clear urine in the afternoon and evening and a urinalysis obtained in the emergency room showed no evidence of hematuria. CT scan of the abdomen and pelvis was obtained and showed evidence of a hematoma anterior and lateral to the left side of the bladder. The bladder was thick walled with cellules. There was no filling defect within the bladder suggestive of intravesical hematoma. No pelvic fracture was identified. Multiple renal cysts were present The patient was admitted and has remained hemodynamically stable. The radiologist suggested a CT cystogram for further evaluation and this was performed early yesterday afternoon. Prior to the cystogram the patient was voiding clear urine. A catheter was inserted apparently with some difficulty and there was pink urine which drained initially from the catheter. The CT scan showed evidence of an increase in size in the hematoma. There was no evidence of bladder rupture. There was some slight extravasation in the region of the prostate and the radiologist was concerned in regard to a possible urethral injury. There was a possible right sacral ala fracture. Since that time the patient's urine has remained clear. He continues to have discomfort in the left lower quadrant as well as in the right inner thigh and groin. The patient's hemoglobin at the nichole e of admission was 12.2 his hemoglobin this morning was 8.9. BUN/creatinine at the time of admission were 37/1.35. BUN/creatinine this morning are 44/1.56. Patient's creatinine has ranged between 1.2 and 1.4 between 2014 and 2018. The patient has no previous history of gross hematuria. He says he usually voids every 4-5 hours during the day and 2 times at night. He says he has a history of intermittent episodes of increased urinary frequency and was evaluated by a urologist in [facility] several years ago. He says that cystoscopy was performed and apparently there was some question as to whether or not he was emptying his bladder completely at that time. He does not recall being placed on any medications and says he's had no difficulty voiding since then. He has no history of urinary tract infection. Review of Systems - Constitutional Denies chills, Denies fever - Cardiovascular Denies edema, Denies shortness of breath - Respiratory Denies cough, Denies wheezing - Gastrointestinal Reports as per HPI, Denies constipation - Genitourinary Reports as per HPI Past Medical History Past Medical History: Chest Pain / Angina, GERD/Reflux, Hyperlipidemia, Hypertension, Myocardial Infarction ([place]), Osteoarthritis ([place]) Additional Past Medical History / Comment(s): kidney stone, TIA, HIATAL HERNIA, PALPATIONS, DDD Last Myocardial Infarction Date:: 1992 History of Any Multi-Drug Resistant Organisms: None Reported Past Surgical History: Adenoidectomy, Back Surgery, Coronary Bypass/CABG, Heart Catheterization, Hernia Repair (Umbilical), Tonsillectomy Additional Past Surgical History / Comment(s): LT carotid endarectomy, back surgery FUSION, SX FOR HIATAL HERNIA-PT STATED IT DID'NT WORK.X2 CABG 1982 AND 2008,HARRISON CATARACTS,REPAIR OF TORN RETINA, EGD, HARRISON INGUIANL HERNIA REPAIR, HARRISON CARPAL TUNNEL RELEASE,HARRISON ROTATOR CUFF REPAIR, CYSTOCOPY(HAD KIDNEY STONE) Past Anesthesia/Blood Transfusion Reactions: No Reported Reaction Past Psychological History: No Psychological Hx Reported Additional Psychological History / Comment(s): PT LIVES AT HOME WITH HIS , IS RETIRED,USED TO WORK COMPUTER/ELECTRONIC REPAIRMAN, NO SERVICE. PT INDEPENDANT BUT HAS STARTED TO USE A CANE WHEN UP. Smoking Status: Never smoker Past Alcohol Use History: None Reported Past Drug Use History: None Reported - Past Family History Father Family Medical History: No Reported History Mother Family Medical History: No Reported History Medications and Allergies Home Medications Medication Instructions Recorded Confirmed Type Aspirin EC [Ecotrin Low Dose] 81 mg PO HS 04/27/15 02/05/19 History Nitroglycerin Sl Tabs [Nitrostat] 0.4 mg SUBLINGUAL Q5M PRN #25 tab 05/01/15 02/05/19 Rx Isosorbide Mononitrate ER [Imdur] 30 mg PO QAM 01/18/17 02/05/19 History Cbd Oil 1 ml PO QID PRN 02/05/19 02/05/19 History Losartan Potassium 50 mg PO DAILY 02/05/19 02/05/19 History Simvastatin [Zocor] 10 mg PO DAILY 02/05/19 02/05/19 History Allergies Allergy/AdvReac Type Severity Reaction Status Date / Time No Known Allergies Allergy Verified 02/05/19 22:39 Surgical - Exam Vital Signs Temp Pulse Resp BP Pulse Ox 99 F 60 20 212/67 97 02/05/19 22:06 02/05/19 22:06 02/05/19 22:06 02/05/19 22:06 02/05/19 22:06 - General well developed, well nourished, no distress - ENT no hearing loss - Neck no masses, no lymphadectomy - Respiratory normal respiratory effort - Abdomen Abdomen: tender (Left lower quadrant near pubis), no organomegaly, no masses - Genitourinary normal penis with no external lesions, testicles non-tender, other (Khoury catheter is draining clear urine) Results - Labs 02/07/19 06:54 02/07/19 06:54 Abnormal Lab Results - Last 24 Hours (Table) 02/07/19 02/07/19 Range/Units 06:54 06:54 RBC 2.91 L (4.30-5.90) m/uL Hgb 8.9 L D (13.0-17.5) gm/dL Hct 28.0 L (39.0-53.0) % Plt Count 121 L (150-450) k/uL Potassium 5.3 H (3.5-5.1) mmol/L Chloride 112 H (98-107) mmol/L Carbon Dioxide 21 L (22-30) mmol/L BUN 44 H (9-20) mg/dL Creatinine 1.56 H (0.66-1.25) mg/dL Glucose 100 H (74-99) mg/dL Calcium 8.2 L (8.4-10.2) mg/dL Total Protein 5.5 L (6.3-8.2) g/dL Albumin 3.0 L (3.5-5.0) g/dL Diabetes panel 02/07/19 Range/Units 06:54 Sodium 139 (137-145) mmol/L Potassium 5.3 H (3.5-5.1) mmol/L Chloride 112 H (98-107) mmol/L Carbon Dioxide 21 L (22-30) mmol/L BUN 44 H (9-20) mg/dL Creatinine 1.56 H (0.66-1.25) mg/dL Glucose 100 H (74-99) mg/dL Calcium 8.2 L (8.4-10.2) mg/dL AST 24 (17-59) U/L ALT 22 (21-72) U/L Alkaline Phosphatase 40 (38-126) U/L Total Protein 5.5 L (6.3-8.2) g/dL Albumin 3.0 L (3.5-5.0) g/dL Calcium panel 02/07/19 Range/Units 06:54 Calcium 8.2 L (8.4-10.2) mg/dL Albumin 3.0 L (3.5-5.0) g/dL Pituitary panel 02/07/19 Range/Units 06:54 Sodium 139 (137-145) mmol/L Potassium 5.3 H (3.5-5.1) mmol/L Chloride 112 H (98-107) mmol/L Carbon Dioxide 21 L (22-30) mmol/L BUN 44 H (9-20) mg/dL Creatinine 1.56 H (0.66-1.25) mg/dL Glucose 100 H (74-99) mg/dL Calcium 8.2 L (8.4-10.2) mg/dL Adrenal panel 02/07/19 Range/Units 06:54 Sodium 139 (137-145) mmol/L Potassium 5.3 H (3.5-5.1) mmol/L Chloride 112 H (98-107) mmol/L Carbon Dioxide 21 L (22-30) mmol/L BUN 44 H (9-20) mg/dL Creatinine 1.56 H (0.66-1.25) mg/dL Glucose 100 H (74-99) mg/dL Calcium 8.2 L (8.4-10.2) mg/dL Total Bilirubin 0.6 (0.2-1.3) mg/dL AST 24 (17-59) U/L ALT 22 (21-72) U/L Alkaline Phosphatase 40 (38-126) U/L Total Protein 5.5 L (6.3-8.2) g/dL Albumin 3.0 L (3.5-5.0) g/dL Assessment and Plan (1) Gross hematuria Narrative/Plan: The patient did have some gross hematuria yesterday which appears to be directly related to placement of the Khoury catheter. It is likely that the bleeding occurred from the region of the prostatic urethra and that this is the source of the slight extravasation of urine noted on the CT cystogram. There is no evidence of bladder rupture and in the absence of any gross pelvic fracture with injury to the pubic rami it is very unlikely to have any disruption in the region of the bladder neck and prostatic urethra. The patient's pelvic hematoma will most likely resolve spontaneously. If his hemoglobin remains stable his catheter could probably be removed tomorrow morning. At least at this time I do not feel that further imaging of the bladder or urethra is necessary. Current Visit: Yes Status: Acute Code(s): R31.0 - GROSS HEMATURIA SNOMED Code(s): 405886262
--- NOTE | 2019-02-07 11:49 | P.PN ---
Subjective Progress Note Date: 02/07/19 Patient is feeling somewhat better today. No new complaints. Objective - Vital Signs Vital signs: Vital Signs Temp 98.5 F 02/07/19 07:00 Pulse 81 02/07/19 07:00 Resp 16 02/07/19 07:00 BP 169/53 02/07/19 07:00 Pulse Ox 96 02/07/19 07:00 Intake & Output 02/06/19 02/07/19 02/07/19 18:59 06:59 18:59 Intake Total 60 Output Total 300 Balance -240 Intake: Oral 60 Output: Urine 300 Other: Voiding Method Indwelling Catheter Indwelling Catheter Indwelling Catheter # Voids 2 - Constitutional General appearance: Present: cooperative - Respiratory Details: nonlabored - Cardiovascular Rhythm: regular - Gastrointestinal Gastrointestinal Comment(s): S/NT/ND - Psychiatric Psychiatric: Present: A&O x's 3 - Labs CBC & Chem 7: 02/07/19 06:54 02/07/19 06:54 Labs: Abnormal Lab Results - Last 24 Hours (Table) 02/07/19 02/07/19 Range/Units 06:54 06:54 RBC 2.91 L (4.30-5.90) m/uL Hgb 8.9 L D (13.0-17.5) gm/dL Hct 28.0 L (39.0-53.0) % Plt Count 121 L (150-450) k/uL Potassium 5.3 H (3.5-5.1) mmol/L Chloride 112 H (98-107) mmol/L Carbon Dioxide 21 L (22-30) mmol/L BUN 44 H (9-20) mg/dL Creatinine 1.56 H (0.66-1.25) mg/dL Glucose 100 H (74-99) mg/dL Calcium 8.2 L (8.4-10.2) mg/dL Total Protein 5.5 L (6.3-8.2) g/dL Albumin 3.0 L (3.5-5.0) g/dL Assessment and Plan Assessment: Pelvic fracture, pelvic hematoma, urethral injury Plan: Follow up urology and ortho recs. No plans for trauma surgical intervention. Repeat HGB at noon
--- NOTE | 2019-02-07 12:06 | P.CNOR ---
History of Present Illness - HPI Consult date: 02/07/19 History of present illness: This is an 83-year-old male who is admitted after a fall. Patient states that he fell ~10-15 feet out of a bucket attached to his truck after a tree limb fell on the bucket causing the bucket to break and tip over. Patient states that this occurred on 02/05/2019 at approximately 5 PM and he was unable to bear weight after this. Patient states that they did not seek immediate medical attention, but did go to the emergency room later after the patient became sweaty and nauseous and sore. Patient states that he does have pain in the front of the right hip and he has pain with bearing weight on the right leg. Patient states that he does have a history of a lumbar fusion done in 2012 at [place] and always has some pain and weakness when ambulating. Patient states that he normally walks with a cane. Patient does complain of some right shoulder pain after his fall. Patient denies any change in bowel or bladder function, saddle anesthesia, numbness, weakness, tingling or radicular pain to bilateral lower extremities. Patient's past medical history is significant for GERD, hyperlipidemia, hypertension, history of myocardial infarction and osteoarthritis. Review of Systems See HPI. Past Medical History Past Medical History: Chest Pain / Angina, GERD/Reflux, Hyperlipidemia, Hypertension, Myocardial Infarction ([place]), Osteoarthritis (OA) Additional Past Medical History / Comment(s): kidney stone, TIA, HIATAL HERNIA, PALPATIONS, DDD Last Myocardial Infarction Date:: 1992 History of Any Multi-Drug Resistant Organisms: None Reported Past Surgical History: Adenoidectomy, Back Surgery, Coronary Bypass/CABG, Heart Catheterization, Hernia Repair (Umbilical), Tonsillectomy Additional Past Surgical History / Comment(s): LT carotid endarectomy, back surgery FUSION, SX FOR HIATAL HERNIA-PT STATED IT DID'NT WORK.X2 CABG 1982 AND 2008,HARRISON CATARACTS,REPAIR OF TORN RETINA, EGD, HARRISON INGUIANL HERNIA REPAIR, HARRISON CARPAL TUNNEL RELEASE,HARRISON ROTATOR CUFF REPAIR, CYSTOCOPY(HAD KIDNEY STONE) Past Anesthesia/Blood Transfusion Reactions: No Reported Reaction Past Psychological History: No Psychological Hx Reported Additional Psychological History / Comment(s): PT LIVES AT HOME WITH HIS , IS RETIRED,USED TO WORK COMPUTER/ELECTRONIC REPAIRMAN, NO SERVICE. PT INDEPENDANT BUT HAS STARTED TO USE A CANE WHEN UP. Smoking Status: Never smoker Past Alcohol Use History: None Reported Past Drug Use History: None Reported - Past Family History Father Family Medical History: No Reported History Mother Family Medical History: No Reported History Medications and Allergies Home Medications Medication Instructions Recorded Confirmed Type Aspirin EC [Ecotrin Low Dose] 81 mg PO HS 04/27/15 02/05/19 History Nitroglycerin Sl Tabs [Nitrostat] 0.4 mg SUBLINGUAL Q5M PRN #25 tab 05/01/15 02/05/19 Rx Isosorbide Mononitrate ER [Imdur] 30 mg PO QAM 01/18/17 02/05/19 History Cbd Oil 1 ml PO QID PRN 02/05/19 02/05/19 History Losartan Potassium 50 mg PO DAILY 02/05/19 02/05/19 History Simvastatin [Zocor] 10 mg PO DAILY 02/05/19 02/05/19 History Allergies Allergy/AdvReac Type Severity Reaction Status Date / Time No Known Allergies Allergy Verified 02/05/19 22:39 Physical Examination On exam patient is lying comfortably in bed in no acute distress. Patient is alert and oriented 3. Patient has no pain with logroll of bilateral lower extremities. Patient does have pain in the front of the right hip with active flexion and extension of the right hip and knee. Patient does have some pain in the front of the right hip with full range of motion of the left lower extremity. Patient has no pain in the left hip with full range of motion of the left lower extremity. There is no tenderness to palpation over the right thigh, knee, tibia/fibula, ankle or foot. There is no erythema or ecchymosis and skin is intact. Sensation is intact. Bilateral lower extremities are warm and well perfused. Calves are soft and nontender to palpation. Neurovascular status and circulatory status are intact. Patient has pain in the right shoulder with active elevation of the right upper extremity. There is no tenderness to palpation over the right shoulder. There is no swelling, erythema or ecchymosis. Sensation is intact bilateral upper ext remities. Head is normocephalic and atraumatic. Results A CT of the abdomen and pelvis dated 02/06/2019 shows: 1. Some urine/contrast extravasation at the level of the prostatic urethra. 2. Large extraperitoneal pelvic hematoma likely as a consequence of the bladder/urethral injury has enlarged (currently 12.0 x 4.9 x 10.3 cm versus 9.6 x 3.2 x 7.8 cm yesterday). 3. Adarsh on 1 right sacral alar fracture. - Labs Labs: Abnormal Lab Results - Last 24 Hours (Table) 02/07/19 02/07/19 Range/Units 06:54 06:54 RBC 2.91 L (4.30-5.90) m/uL Hgb 8.9 L D (13.0-17.5) gm/dL Hct 28.0 L (39.0-53.0) % Plt Count 121 L (150-450) k/uL Potassium 5.3 H (3.5-5.1) mmol/L Chloride 112 H (98-107) mmol/L Carbon Dioxide 21 L (22-30) mmol/L BUN 44 H (9-20) mg/dL Creatinine 1.56 H (0.66-1.25) mg/dL Glucose 100 H (74-99) mg/dL Calcium 8.2 L (8.4-10.2) mg/dL Total Protein 5.5 L (6.3-8.2) g/dL Albumin 3.0 L (3.5-5.0) g/dL H & H 02/05/19 02/07/19 Range/Units 22:15 06:54 Hgb 12.2 L 8.9 L D (13.0-17.5) gm/dL Hct 43.1 28.0 L (39.0-53.0) % Coagulation 02/05/19 Range/Units 22:15 INR 1.0 (<1.2) Result Diagrams: 02/07/19 06:54 02/07/19 06:54 Assessment and Plan (1) Fracture of sacrum Current Visit: Yes Status: Acute Code(s): S32.10XA - UNSP FRACTURE OF SACRUM, INIT ENCNTR FOR CLOSED FRACTURE SNOMED Code(s): 536210418 (2) Fall Current Visit: Yes Status: Acute Code(s): W19.XXXA - UNSPECIFIED FALL, INITI AL ENCOUNTER SNOMED Code(s): 8773733 Plan: 1. Recommend protected weightbearing to the right lower extremity with a walker. 2. Recommend physical therapy for mobilization. 3. Continue pain control. 4. X-ray of the right shoulder is pending. 5. No surgical intervention is planned. Will continue to follow.
[2019-02-07 12:29] LABS: HCT 26.1 % (39.0-53.0); HGB 8.7 gm/dL (13.0-17.5); MCH 32.3 pg (25.0-35.0); MCHC 33.1 g/dL (31.0-37.0); MCV 97.6 fL (80.0-100.0); Mean Platelet Volume 6.9; Platelet Count 134 k/uL (150-450); RBC 2.68 m/uL (4.30-5.90); RDW 14.3 % (11.5-15.5); WBC 9.1 k/uL (3.8-10.6)
--- NOTE | 2019-02-07 12:47 | XR ---
EXAMINATION TYPE: XR shoulder complete RT , 3 VIEWS DATE OF EXAM ORDERED: 02/07/2019 HISTORY: pain. COMPARISON: None. FINDINGS: There has been a previous Josue procedure. No fracture or dislocation is seen. IMPRESSION: 1. NO ACUTE OSSEOUS LESION. 2. POSTSURGICAL CHANGE.
[2019-02-07 14:18] VITALS: BMI 23.4
[2019-02-07] MEDS: HEPARIN SODIUM,PORCINE 5,000 UNIT/ML 1 ML VIAL SQ SCH (21:44)
[2019-02-07] MEDS: traMADol 50 MG TAB PO PRN (21:50)
[2019-02-08 02:02] VITALS: TEMP 98
[2019-02-08] MEDS: SODIUM CHLORIDE 0.9% 1,000 ML IV SCH (07:27)
[2019-02-08 07:29] LABS: HCT 27.3 % (39.0-53.0); HGB 8.7 gm/dL (13.0-17.5); Hypochromasia Slight; MCH 31.5 pg (25.0-35.0); MCV 98.5 fL (80.0-100.0); Mean Platelet Volume 7.2; Platelet Count 116 k/uL (150-450); RBC 2.77 m/uL (4.30-5.90); RDW 14.2 % (11.5-15.5); WBC 7.6 k/uL (3.8-10.6)
[2019-02-08 07:33] LABS: Calcium 8.4 mg/dL (8.4-10.2); Potassium 4.8 mmol/L (3.5-5.1)
[2019-02-08] MEDS: traMADol 50 MG TAB PO PRN ×2 (07:46→17:45)
[2019-02-08] MEDS: ISOSORBIDE MONONITRATE ER 30 MG TAB.ER.24H PO SCH (07:47)
[2019-02-08] MEDS: ATORVASTATIN 10 MG TAB PO SCH (07:47)
[2019-02-08] MEDS: HEPARIN SODIUM,PORCINE 5,000 UNIT/ML 1 ML VIAL SQ SCH (07:47)
[2019-02-08 07:50] VITALS: BP 161/55; PULSE 80; RESP 16
--- NOTE | 2019-02-08 08:56 | P.PN ---
Subjective Progress Note Date: 02/08/19 This is an 83-year-old male who is admitted after a fall. Patient sustained a fracture to the sacrum. Patient states that he has not been out of bed with physical therapy yet. Patient denies any pain in the right shoulder today. Patient denies any new symptoms or complaints today. Objective - Vital Signs Vital signs: Vital Signs Temp 98.0 F 02/08/19 07:49 Pulse 80 02/08/19 07:49 Resp 16 02/08/19 07:49 BP 161/55 02/08/19 07:49 Pulse Ox 96 02/08/19 07:49 Intake & Output 02/07/19 02/08/19 02/08/19 18:59 06:59 18:59 Intake Total 0290 776 8609 Output Total 400 550 Balance 1470 120 460 Weight 67.903 kg Intake: Intake, IV Titration 650 950 Amount Sodium Chloride 0.9% 1, 650 950 000 ml @ 100 mls/hr IV . Q10H [facility] Rx#:[id number] Oral 1220 120 60 Output: Urine 400 550 Uretheral (Khoury) 400 Other: Voiding Method Indwelling Catheter Indwelling Catheter - Exam On exam patient is lying comfortably in bed in no acute distress. Patient is alert and oriented 3. Patient has no pain with logroll of bilateral lower extremities. Patient does have pain in the front of the right hip with active flexion and extension of the right hip and knee. Patient does have some pain in the front of the right hip with full range of motion of the left lower extremity. Patient has no pain in the left hip with full range of motion of the left lower extremity. There is no tenderness to palpation over the right thigh, knee, tibia/fibula, ankle or foot. There is no erythema or ecchymosis and skin is intact. Sensation is intact. Bilateral lower extremities are warm and well perfused. Calves are soft and nontender to palpation. Neurovascular status and circulatory status are intact. Patient has pain in the right shoulder with active elevation of the right upper extremity. There is no tenderness to palpation over the right shoulder. There is no swelling, erythema or ecchymosis. Sensation is intact bilateral upper extremities. Head is normocephalic and atraumatic. - Labs CBC & Chem 7: 02/08/19 06:54 02/08/19 06:54 Labs: Abnormal Lab Results - Last 24 Hours (Table) 02/07/19 02/08/19 02/08/19 Range/Units 12:01 06:54 06:54 RBC 2.68 L 2.77 L (4.30-5.90) m/uL Hgb 8.7 L 8.7 L (13.0-17.5) gm/dL Hct 26.1 L 27.3 L (39.0-53.0) % Plt Count 134 L 116 L (150-450) k/uL Chloride 112 H (98-107) mmol/L Carbon Dioxide 21 L (22-30) mmol/L BUN 36 H (9-20) mg/dL Assessment and Plan (1) Fracture of sacrum Current Visit: Yes Status: Acute Code(s): S32.10XA - UNSP FRACTURE OF SACRUM, INIT ENCNTR FOR CLOSED FRACTURE SNOMED Code(s): 944457658 (2) Fall Current Visit: Yes Status: Acute Code(s): W19.XXXA - UNSPECIFIED FALL, INITIAL ENCOUNTER SNOMED Code(s): 2896879 Plan: 1. Recommend protected weightbearing to the right lower extremity with a walker. 2. Recommend physical therapy for mobilization. 3. Continue pain control. 4. X-rays of the right shoulder are negative for any fracture or dislocation. 5. No surgical intervention is planned. Patient may follow-up as an ou tpatient.
--- NOTE | 2019-02-09 09:13 | P.DS ---
Providers Date of admission: 02/07/19 14:12 Expected date of discharge: 02/09/19 Attending physician: Sandhya Joseph Consults: 02/06/19 01:27 Consult Physician Stat Consulting Provider: Delano Richmond Consult Reason/Comments: level II trauma patient admit to med Do you want consulting provider notified?: Already Contacted 02/06/19 18:07 Consult Physician Routine Consulting Provider: Micah Rubio Consult Reason/Comments: TRAUMATIC PELVIC INJURY Do you want consulting provider notified?: Yes Consult Physician Stat Consulting Provider: David Dennis Consult Reason/Comments: TRAUMATIC URETHRAL INJURY Do you want consulting provider notified?: Yes Primary care physician: Ellacasandra GamingYoel [facility] Course: Final diagnosis Trauma with hematoma near the bladder area Right groin pain secondary to trauma and possible musculoskeletal injury Acute renal failure, prerenal azotemia due to intravascular depletion Chronic kidney disease stage II to 3 Gastroesophageal reflux disease Hyperlipidemia Hypertension Coronary artery disease Discharge disposition Patient is being discharged in stable condition with guarded prognosis to home and will have home care follow. Patient will follow-up with PT/OT in the outpatient setting. Total time taken is 35 minutes. History of present illness This is an 83-year-old male who was recently admitted after a trauma and patient was found to have a big hematoma in the urinary bladder area and was being closely monitored. Neurology was following and cleared the patient for discharge and may follow-up in the outpatient setting as needed. Orthopedic surgery evaluated the patient and patient will follow-up with them in the outpatient setting as well. Patient will continue with PT/OT in the outpatient setting as discussed. Patient did have a Khoury catheter which was removed this afternoon and patient did urinate with no difficulties. Will like to go home today. Patient denies any chest pain, shortness of breath, or palpitations at this time. Patient has been afebrile. Patient denies any nausea or vomiting and is tolerating diet. Currently patient's condition is stable with much improvement and patient will be discharged this afternoon. On exam vital signs are stable. Temp is 98F, pulse is 80, respirations are 16, blood pressure is 161/55, oxygen saturation is 96% on room air. Cardio S1 and S2 are normal. Respiratory system shows clear to auscultation with no wheezing or crackles noted. Abdomen is soft and nontender. Nervous system shows no focal deficits. Please refer to medication reconciliation sheet for a list of medications. Patient Condition at Discharge: Stable Plan - Discharge Summary New Discharge Prescriptions: New traMADol HCl [Ultram] 50 mg PO QID PRN #12 tab PRN Reason: Pain/Discomfort Continue Aspirin EC [Ecotrin Low Dose] 81 mg PO HS Nitroglycerin Sl Tabs [Nitrostat] 0.4 mg SUBLINGUAL Q5M PRN #25 tab PRN Reason: Chest Pain Isosorbide Mononitrate ER [Imdur] 30 mg PO QAM Simvastatin [Zocor] 10 mg PO DAILY Losartan Potassium 50 mg PO DAILY Cbd Oil 1 ml PO QID PRN PRN Reason: Pain Discharge Medication List Aspirin EC [Ecotrin Low Dose] 81 mg PO HS 04/27/15 [History] Nitroglycerin Sl Tabs [Nitrostat] 0.4 mg SUBLINGUAL Q5M PRN #25 tab 05/01/15 [Rx] Isosorbide Mononitrate ER [Imdur] 30 mg PO QAM 01/18/17 [History] Cbd Oil 1 ml PO QID PRN 02/05/19 [History] Losartan Potassium 50 mg PO DAILY 02/05/19 [History] Simvastatin [Zocor] 10 mg PO DAILY 02/05/19 [History] traMADol HCl [Ultram] 50 mg PO QID PRN #12 tab 02/08/19 [Rx] Follow up Appointment(s)/Referral(s): Ella Diallo DO [Primary Care Provider] - 02/10/19 11:20 am [facility], [NON-STAFF] - As Needed Micah Rubio DO [Doctor of Osteopathic Medicine] - 02/15/19 3:00 pm Ambulatory/Diagnostic Orders: Basic Metabolic Panel [LAB.AMB] Time Frame: 3 Days, Location: None Selected Complete Blood Count w/diff [LAB.AMB] Time Frame: 2 Days, Location: None Selected Activity/Diet/Wound Care/Special Instructions: Activity Limited until follow-up Follow-up with primary care provider this week Continue current diet Follow-up with orthopedics this week repeat labs in 2-3 days Discharge Disposition: HOME WITH HOME HEALTH SERVICES
== END 2019-02-08 17:48 | disposition home health service (06) | DRG 964 ==
LOC: EC 22:06 → 4SSUR 02-06 01:14 → OBSVTOIN 02-07 14:12
PROVIDERS: ADMIT Internal Medicine; ATTEND Internal Medicine
DX: S37.22XA Contusion of bladder, initial encounter (principal); S32.119A Unspecified Zone I fracture of sacrum, initial encounter for closed fracture; N17.9 Acute kidney failure, unspecified; S20.211A Contusion of right front wall of thorax, initial encounter; W17.89XA Other fall from one level to another, initial encounter; Y93.89 Activity, other specified; D64.9 Anemia, unspecified; E78.5 Hyperlipidemia, unspecified; I12.9 Hypertensive chronic kidney disease with stage 1 through stage 4 chronic kidney disease, or unspecified chronic kidney disease; I25.10 Atherosclerotic heart disease of native coronary artery without angina pectoris; I25.2 Old myocardial infarction; K21.9 Gastro-esophageal reflux disease without esophagitis; N18.2 Chronic kidney disease, stage 2 (mild); N28.1 Cyst of kidney, acquired; R31.0 Gross hematuria; S37.30XA Unspecified injury of urethra, initial encounter; Z79.899 Other long term (current) drug therapy; Z86.73 Personal history of transient ischemic attack (TIA), and cerebral infarction without residual deficits; Z87.442 Personal history of urinary calculi; Z95.1 Presence of aortocoronary bypass graft; M19.90 Unspecified osteoarthritis, unspecified site; M25.511 Pain in right shoulder; Z98.1 Arthrodesis status; K44.9 Diaphragmatic hernia without obstruction or gangrene; Z98.42 Cataract extraction status, left eye; Z98.41 Cataract extraction status, right eye
CPT/HCPCS: 36415; 70450; 71045; 71260; 72125; 72170; 74177; 80048; 80053; 80306; 80320; 81003; 82150; 82550; 82553; 83605; 83690; 84484; 85025; 85027; 85610; 85730; 86850; 86900; 86901; 96360; 96361; 99285

== ENCOUNTER → 2019-03-17 | Outpatient (CLI) | payer MEDICARE, BC ==
[2019-03-17 15:57] LABS: Albumin/Globulin Ratio 1.9 (1.60-3.17); Anion Gap 8.2 mmol/L (4.00-12.00); Calcium 9.1 mg/dL (8.7-10.3); Carbon Dioxide 24.8 mmol/L (21.6-31.8); Chol/HDL Ratio 2.96; Globulin 2.1 g/dL (1.6-3.3); Potassium 4.2 mmol/L (3.5-5.5); Total Bilirubin 0.6 mg/dL (0.3-1.2); Total Protein 6.1 g/dL (6.2-8.2)
== END ==
LOC: LABWHC1 10:14
PROVIDERS: ATTEND Nurse Practitioner Adult Health
DX: E78.2 Mixed hyperlipidemia (principal); I10 Essential (primary) hypertension
CPT/HCPCS: 36415; 80053; 80061

== ENCOUNTER 2019-05-15 14:29 | Emergency (ER) | payer MEDICARE, BC ==
[2019-05-15] MEDS ORDERED: SODIUM CHLORIDE 0.9% 1,000 ML IV STA (14:56)
--- NOTE | 2019-05-15 14:57 | ED ---
Neuro HPI - General Chief Complaint: Neuro Symptoms/Deficit Stated Complaint: Confusion Time Seen by Provider: 05/15/19 14:39 Source: patient, EMS, RN notes reviewed, old records reviewed Mode of arrival: EMS Limitations: no limitations - History of Present Illness Is the patient presenting with stroke symptoms?: No -: hour(s) (4) Initial Comments: this is an 83-year-old male with history of CVA history of history of CVA coming in with strokelike symptoms slurred speech and difficulty talking, difficulty understanding speech per family both and his kids. Patient self has no complaints he occasionally does get headache but again no current headache. The states symptoms are significantly improved currently. No recent fever or illness. No recent change in medications. Location: speech History of same: Yes Place: home Severity: mild Improves With: time Worsens With: none On Anticoagulants: Yes Context: sudden onset Associated Symptoms: confusion, weakness Treatments Prior to Arrival: none - Related Data Home Medications: Home Medications Medication Instructions Recorded Confirmed Aspirin EC [Ecotrin Low Dose] 81 mg PO HS 04/27/15 05/15/19 Isosorbide Mononitrate ER [Imdur] 30 mg PO DAILY 01/18/17 05/15/19 Cbd Oil 1 ml PO QID PRN 02/05/19 05/15/19 Losartan Potassium 50 mg PO HS 02/05/19 05/15/19 Previous Rx's Medication Instructions Recorded Nitroglycerin Sl Tabs [Nitrostat] 0.4 mg SUBLINGUAL Q5M PRN #25 tab 05/01/15 Allergies/Adverse Reactions: Allergies Allergy/AdvReac Type Severity Reaction Status Date / Time No Known Allergies Allergy Verified 05/15/19 17:02 Review of Systems ROS Statement: Those systems with pertinent positive or pertinent negative responses have been documented in the HPI. ROS Other: All systems not noted in ROS Statement are negative. General Exam Limitations: no limitations General appearance: alert, in no apparent distress Head exam: Present: atraumatic, normocephalic, normal inspection Eye exam: Present: normal appearance, PERRL, EOMI. Absent: scleral icterus, conjunctival injection, periorbital swelling ENT exam: Present: normal exam, mucous membranes moist Neck exam: Present: normal inspection. Absent: tenderness, meningismus, lymphadenopathy Respiratory exam: Present: normal lung sounds bilaterally. Absent: respiratory distress, wheezes, rales, rhonchi, stridor Cardiovascular Exam: Present: regular rate, normal rhythm, normal heart sounds. Absent: systolic murmur, diastolic murmur, rubs, gallop, clicks GI/Abdominal exam: Present: soft, normal bowel sounds. Absent: distended, tenderness, guarding, rebound, rigid Extremities exam: Present: normal inspection, full ROM, normal capillary refill. Absent: tenderness, pedal edema, joint swelling, calf tenderness Back exam: Present: normal inspection Neurological exam: Present: alert, oriented X3, CN II-XII intact Psychiatric exam: Present: normal affect, normal mood Skin exam: Present: warm, dry, intact, normal color. Absent: rash Stroke MDM - Lab Data Result diagrams: 05/15/19 16:37 05/15/19 16:37 Lab Results 05/15/19 05/15/19 05/15/19 Range/Units 16:37 16:37 16:37 WBC 6.7 (3.8-10.6) k/uL RBC 4.85 (4.30-5.90) m/uL Hgb 15.1 (13.0-17.5) gm/dL Hct 46.2 (39.0-53.0) % MCV 95.3 (80.0-100.0) fL MCH 31.1 (25.0-35.0) pg MCHC 32.7 (31.0-37.0) g/dL RDW 13.2 (11.5-15.5) % Plt Count 165 (150-450) k/uL Neutrophils % 74 % Lymphocytes % 13 % Monocytes % 7 % Eosinophils % 2 % Basophils % 1 % Neutrophils # 5.0 (1.3-7.7) k/uL Lymphocytes # 0.9 L (1.0-4.8) k/uL Monocytes # 0.5 (0-1.0) k/uL Eosinophils # 0.1 (0-0.7) k/uL Basophils # 0.1 (0-0.2) k/uL PT 10.7 (9.0-12.0) sec INR 1.0 (<1.2) APTT 26.7 (22.0-30.0) sec Sodium 139 (137-145) mmol/L Potassium 5.5 H (3.5-5.1) mmol/L Chloride 107 (98-107) mmol/L Carbon Dioxide 22 (22-30) mmol/L Anion Gap 10 mmol/L BUN 36 H (9-20) mg/dL Creatinine 1.39 H (0.66-1.25) mg/dL Est GFR (CKD-EPI)AfAm 54 (>60 ml/min/1.73 sqM) Est GFR (CKD-EPI)NonAf 46 (>60 ml/min/1.73 sqM) Glucose 101 H (74-99) mg/dL Calcium 9.3 (8.4-10.2) mg/dL Total Bilirubin 0.5 (0.2-1.3) mg/dL AST 18 (17-59) U/L ALT 12 (4-49) U/L Alkaline Phosphatase 91 (38-126) U/L Creatine Kinase 27 L (55-170) U/L Troponin I (0.000-0.034) ng/mL Total Protein 7.0 (6.3-8.2) g/dL Albumin 4.0 (3.5-5.0) g/dL 05/15/19 Range/Units 16:37 WBC (3.8-10.6) k/uL RBC (4.30-5.90) m/uL Hgb (13.0-17.5) gm/dL Hct (39.0-53.0) % MCV (80.0-100.0) fL MCH (25.0-35.0) pg MCHC (31.0-37.0) g/dL RDW (11.5-15.5) % Plt Count (150-450) k/uL Neutrophils % % Lymphocytes % % Monocytes % % Eosinophils % % Basophils % % Neutrophils # (1.3-7.7) k/uL Lymphocytes # (1.0-4.8) k/uL Monocytes # (0-1.0) k/uL Eosinophils # (0-0.7) k/uL Basophils # (0-0.2) k/uL PT (9.0-12.0) sec INR (<1.2) APTT (22.0-30.0) sec Sodium (137-145) mmol/L Potassium (3.5-5.1) mmol/L Chloride (98-107) mmol/L Carbon Dioxide (22-30) mmol/L Anion Gap mmol/L BUN (9-20) mg/dL Creatinine (0.66-1.25) mg/dL Est GFR (CKD-EPI)AfAm (>60 ml/min/1.73 sqM) Est GFR (CKD-EPI)NonAf (>60 ml/min/1.73 sqM) Glucose (74-99) mg/dL Calcium (8.4-10.2) mg/dL Total Bilirubin (0.2-1.3) mg/dL AST (17-59) U/L ALT (4-49) U/L Alkaline Phosphatase (38-126) U/L Creatine Kinase (55-170) U/L Troponin I <0.012 (0.000-0.034) ng/mL Total Protein (6.3-8.2) g/dL Albumin (3.5-5.0) g/dL - NIH Stroke Scale 1a. Level of Consciousness: (0) alert 1b. LOC Questions: (0) answers correctly 1c. LOC Commands: (0) performs tasks correctly 2. Best Gaze: (0) normal 3. Visual: (0) no visual loss 4. Facial Palsy: (0) normal symmetrical movement 5a. Motor Arm Left: (0) no drift 5b. Motor Arm Right: (0) no drift 6a. Motor Leg Left: (0) no drift 6b. Motor Leg Right: (0) no drift 7. Limb Ataxia: (0) absent 8. Sensory: (0) normal 9. Best Language: (0) no aphasia 10. Dysarthria: (0) normal 11. Extinction/Inattention: (0) no abnormality - Thrombolytic Inclusion/Exclusion Thrombolytic Inclusion Criteria: Symptom Onset < 4.5 h Thrombolytic Contraindications: Rapidly Improving s/s - Medical Decision Making 83 male to the ED for evaluation. Patient was sent for evaluation regards some slurred speech symptoms resolved and patient can be discharged home - Radiology Data Radiology results: report reviewed (CT brain CT head and neck negative for acute disease), image reviewed - EKG Data -: EKG Interpreted by Me (EKG shows sinus rhythm rate of 63, by mouth 150, QRS 110, QTc 450) Past Medical History Past Medical History: Chest Pain / Angina, GERD/Reflux, Hyperlipidemia, Hypertension, Myocardial Infarction ([place]), Osteoarthritis (OA) Additional Past Medical History / Comment(s): kidney stone, TIA, HIATAL HERNIA, PALPATIONS, DDD Last Myocardial Infarction Date:: 1992 History of Any Multi-Drug Resistant Organisms: None Reported Past Surgical History: Adenoidectomy, Back Surgery, Coronary Bypass/CABG, Heart Catheterization, Hernia Repair, Tonsillectomy Additional Past Surgical History / Comment(s): LT carotid endarectomy, back surgery FUSION, SX FOR HIATAL HERNIA-PT STATED IT DID'NT WORK.X2 CABG 1982 AND 2008,HARRISON CATARACTS,REPAIR OF TORN RETINA, EGD, HARRISON INGUIANL HERNIA REPAIR, HARRISON CARPAL TUNNEL RELEASE,HARRISON ROTATOR CUFF REPAIR, CYSTOCOPY(HAD KIDNEY STONE) Past Anesthesia/Blood Transfusion Reactions: No Reported Reaction Past Psychological History: No Psychological Hx Reported Smoking Status: Never smoker Past Alcohol Use History: Occasional Past Drug Use History: Marijuana - Past Family History Father Family Medical History: No Reported History Mother Family Medical History: No Reported History Course Vital Signs 05/15/19 05/15/19 05/15/19 14:35 16:48 18:51 Temperature 98.8 F 97.9 F Pulse Rate 68 60 71 Respiratory 18 17 18 Rate Blood Pressure 126/68 136/69 164/67 O2 Sat by Pulse 97 98 100 Oximetry - Reevaluation(s) Reevaluation #1: record is reviewed Social patient regarding admission versus early discharged ointment with hydration will take aspirin daily Disposition Clinical Impression: TIA (transient ischemic attack), Dehydration Disposition: HOME SELF-CARE Condition: Good Instructions (If sedation given, give patient instructions): Transient Ischemic Attack (ED) Is patient prescribed a controlled substance at d/c from ED?: No Referrals: Ella Diallo DO [Primary Care Provider] - 1-2 days
--- NOTE | 2019-05-15 16:56 | CT ---
EXAMINATION TYPE: CT brain wo con for TPA DATE OF EXAM: 05/15/2019 COMPARISON: Prior CT 02/05/2019 HISTORY: Altered mental status. CT DLP: 1154.4 mGycm Automated exposure control for dose reduction was used. Head CT using departmental protocol FINDINGS: Periventricular white matter shows patchy low attenuation. No hemorrhage or hydrocephalus. Cerebral v ascular calcifications are present. Calvarium is intact. Paranasal sinuses and mastoid air cells unre markable. Orbits show symmetric appearance. IMPRESSION: STABLE EXAM. NONSPECIFIC WHITE MATTER DEMYELINATION MAY BE DUE TO CHRONIC SMALL VESSEL ISCHEMIA.
[2019-05-15 17:00] LABS: Basophils # (A) 0.1 k/uL (0-0.2); Basophils % (A) 1 %; Eosinophils # (A) 0.1 k/uL (0-0.7); Eosinophils % (A) 2 %; HCT 46.2 % (39.0-53.0); HGB 15.1 gm/dL (13.0-17.5); Lymphocytes # (A) 0.9 k/uL (1.0-4.8); Lymphocytes % (A) 13 %; MCH 31.1 pg (25.0-35.0); MCHC 32.7 g/dL (31.0-37.0); MCV 95.3 fL (80.0-100.0); Mean Platelet Volume 7.5; Monocytes # (A) 0.5 k/uL (0-1.0); Monocytes % (A) 7 %; Neutrophils % (A) 74 %; Platelet Count 165 k/uL (150-450); RBC 4.85 m/uL (4.30-5.90); RDW 13.2 % (11.5-15.5); WBC 6.7 k/uL (3.8-10.6)
--- NOTE | 2019-05-15 17:05 | XR ---
EXAMINATION TYPE: XR chest 2V DATE OF EXAM: 05/15/2019 COMPARISON: CT chest 02/05/2019, chest x-ray 02/05/2019 HISTORY: Altered mental status TECHNIQUE: Frontal and lateral views of the chest are obtained. FINDINGS: Patient is post median sternotomy and rotated. There is eventration right hemidiaphragm. Ao rta is dense. There is no focal air space opacity, pleural effusion, or pneumothorax seen. The cardi ac silhouette size is likely stable. The osseous structures are intact. Retrocardiac density with c entral lucency compatible with hiatal hernia. There are coronary artery calcifications. IMPRESSION: No acute cardiopulmonary process. Additional findings above.
[2019-05-15 17:24] LABS: Partial Thromboplastin Time 26.7 sec (22.0-30.0); Prothrombin Time 10.7 sec (9.0-12.0)
[2019-05-15 17:28] LABS: Calcium 9.3 mg/dL (8.4-10.2); Potassium 5.5 mmol/L (3.5-5.1); Total Bilirubin 0.5 mg/dL (0.2-1.3)
[2019-05-15 18:52] VITALS: BP 164/67; PULSE 71; RESP 18; TEMP 97.9
== END 2019-05-15 18:51 | disposition home or self-care (01) ==
LOC: EC 14:29
DX: G45.9 Transient cerebral ischemic attack, unspecified (principal); E86.0 Dehydration; I20.9 Angina pectoris, unspecified; I10 Essential (primary) hypertension; I25.2 Old myocardial infarction; M19.90 Unspecified osteoarthritis, unspecified site; Z79.82 Long term (current) use of aspirin; Z79.899 Other long term (current) drug therapy; Z95.1 Presence of aortocoronary bypass graft
CPT/HCPCS: 36415; 70450; 71046; 80053; 82550; 84484; 85025; 85610; 85730; 93005; 96360; 99285

== ENCOUNTER → 2020-02-28 | Outpatient (CLI) | payer MEDICARE, BC ==
[2020-02-28 21:12] LABS: African American GFR (CKD) 63.5 (60.0-200.0); Albumin 4.3 g/dL (3.80-4.90); Albumin/Globulin Ratio 1.95 (1.60-3.17); Anion Gap 7.6 mmol/L (4.00-12.00); BUN/Creat Ratio 24.17 Ratio (12.00-20.00); Calcium 9.4 mg/dL (8.7-10.3); Carbon Dioxide 24.4 mmol/L (21.6-31.8); Chol/HDL Ratio 3.03; Globulin 2.2 g/dL (1.6-3.3); Non-African American GFR(CKD) 54.8 (60.0-200.0); Potassium 5.4 mmol/L (3.5-5.5); Total Bilirubin 0.6 mg/dL (0.3-1.2); Total Protein 6.5 g/dL (6.2-8.2)
== END | disposition home or self-care (01) ==
LOC: LABWHC1 09:30
PROVIDERS: ATTEND Internal Medicine Interventional Cardiology
DX: E78.2 Mixed hyperlipidemia (principal)
CPT/HCPCS: 36415; 80053; 80061

== ENCOUNTER → 2022-09-03 | Outpatient (CLI) | payer MEDICARE, BC ==
[2022-09-03 15:48] LABS: HCT 44.7 % (39.6-50.0); HGB 14.1 g/dL (13.0-17.0); MCH 31.5 pg (27.0-32.0); MCHC 31.5 g/dL (32.0-37.0); MCV 99.8 fL (80.0-97.0); Mean Platelet Volume 10.1 fL (9.5-12.2); NRBC Per 100 WBC 0 /100 WBCS (0.0-0.0); Platelet Count 154 X 10*3/uL (140-440); RBC 4.48 X 10*6/uL (4.40-5.60); RDW 13.8 % (11.5-14.5); WBC 6.92 X 10*3/uL (4.50-10.00)
[2022-09-03 16:00] LABS: African American GFR (CKD) 32.9 (60.0-200.0); Albumin/Globulin Ratio 1.65 (1.60-3.17); Anion Gap 9.4 mmol/L (10.00-18.00); BUN/Creat Ratio 15.47 Ratio (12.00-20.00); Blood Urea Nitrogen 31.4 mg/dL (9.0-27.0); Calcium 9.2 mg/dL (8.7-10.3); Globulin 2.4 g/dL (1.6-3.3); Non-African American GFR(CKD) 28.4 (60.0-200.0); Potassium 5.4 mmol/L (3.5-5.5); Total Bilirubin 0.4 mg/dL (0.30-1.20); Total Protein 6.4 g/dL (6.2-8.2)
== END | disposition home or self-care (01) ==
LOC: LABWHC1 11:29
PROVIDERS: ATTEND Internal Medicine Interventional Cardiology
DX: Z95.1 Presence of aortocoronary bypass graft (principal)
CPT/HCPCS: 36415; 80053; 85027

== ENCOUNTER 2024-02-06 19:33 | Inpatient (IN) | payer MEDICARE, BC ==
--- NOTE | 2024-02-06 19:56 | ED ---
General Adult HPI - General Source: patient Mode of arrival: ambulatory Limitations: no limitations <Daiana Workman - Last Filed: 02/07/24 04:21> <Esperanza Shen - Last Filed: 02/15/24 00:54> - General Chief complaint: Shortness of Breath Stated complaint: JUDSON Time Seen by Provider: 02/06/24 19:55 - History of Present Illness Initial comments: 88-year-old male presenting with chief complaint of difficulty breathing. Difficulty breathing has been ongoing for few days and getting worse. Family notes that it is worse when he is walking or laying down. He has no chest pain today. states he did previously have 1 episode of chest pain but since has not complained of any. He was seen by his PCP and was told that he has fluid on the lungs. Sent here for further evaluation. No fevers. Mild cough. He does have some lower extremity swelling but states that this is his normal. No nausea or vomiting. (Daiana Workman) - Related Data Previous Rx's Medication Instructions Recorded Aspirin 81 mg PO DAILY #30 tab 02/10/24 Atorvastatin [Lipitor] 40 mg PO HS #30 tab 02/10/24 Furosemide [Lasix] 40 mg PO DAILY #30 tab 02/10/24 amLODIPine [Norvasc] 5 mg PO DAILY #30 tab 02/10/24 carvediloL [Coreg] 3.125 mg PO BID-W/MEALS #60 tab 02/10/24 Allergies Allergy/AdvReac Type Severity Reaction Status Date / Time No Known Allergies Allergy Verified 02/07/24 09:44 Review of Systems ROS Other: All systems not noted in ROS Statement are negative. <Daiana Workman - Last Filed: 02/07/24 04:21> ROS Other: All systems not noted in ROS Statement are negative. <Esperanza Shen - Last Filed: 02/15/24 00:54> ROS Statement: Those systems with pertinent positive or pertinent negative responses have been documented in the HPI. Past Medical History Past Medical History: Chest Pain / Angina, GERD/Reflux, Hyperlipidemia, Hypertension, Myocardial Infarction ([place]), Osteoarthritis ([place]) Additional Past Medical History / Comment(s): kidney stone, TIA, HIATAL HERNIA, PALPATIONS, DDD Last Myocardial Infarction Date:: 1992 History of Any Multi-Drug Resistant Organisms: None Reported Past Surgical History: Adenoidectomy, Back Surgery, Coronary Bypass/CABG, Heart Catheterization, Hernia Repair, Tonsillectomy Additional Past Surgical History / Comment(s): LT carotid endarectomy, back surgery FUSION, SX FOR HIATAL HERNIA-PT STATED IT DID'NT WORK.X2 CABG 1982 AND 2008,HARRISON CATARACTS,REPAIR OF TORN RETINA, EGD, HARRISON INGUIANL HERNIA REPAIR, HARRISON CARPAL TUNNEL RELEASE,HARRISON ROTATOR CUFF REPAIR, CYSTOCOPY(HAD KIDNEY STONE) Past Anesthesia/Blood Transfusion Reactions: No Reported Reaction Past Psychological History: No Psychological Hx Reported Smoking Status: Never smoker Past Alcohol Use History: Occasional Past Drug Use History: Marijuana - Past Family History Father Family Medical History: No Reported History Mother Family Medical History: No Reported History <Daiana Workman - Last Filed: 02/07/24 04:21> General Exam General appearance: alert, in no apparent distress Head exam: Present: atraumatic, normocephalic Eye exam: Present: normal appearance, EOMI Neck exam: Present: normal inspection. Absent: meningismus Respiratory exam: Present: normal lung sounds bilaterally. Absent: respiratory distress, wheezes, rales, rhonchi, stridor Cardiovascular Exam: Present: regular rate, normal rhythm, normal heart sounds. Absent: systolic murmur, diastolic murmur, rubs, gallop, clicks Extremities exam: Present: pedal edema Neurological exam: Present: alert, oriented X3 Psychiatric exam: Present: normal affect, normal mood Skin exam: Present: warm, dry <Daiana Workman - Last Filed: 02/07/24 04:21> - General Exam Comments Initial Comments: Visual Physical Exam Vital signs reviewed General: Well-appearing, nontoxic, no acute distress. Head: Normocephalic, atraumatic Eyes: PERRLA, EOMI ENT: Airway patent Chest: Nonlabored breathing Skin: No visual rash, normal skin tone Neuro: Alert and oriented 3 Musculoskeletal: No gross abnormalities (Daiana Workman) Course Vital Signs 02/06/24 02/06/24 02/07/24 19:50 23:17 00:59 Temperature 97.8 F Pulse Rate 66 79 Pulse Rate [ Weatherization Field Technician ] Respiratory 20 19 Rate Blood Pressure 171/69 153/82 Blood Pressure [Right Arm] O2 Sat by Pulse 97 92 L Oximetry Fraction of 40 Inspired Oxygen (FIO2) 02/07/24 02/07/24 02/07/24 01:00 04:00 05:21 Temperature Pulse Rate 82 70 Pulse Rate [ Weatherization Field Technician ] Respiratory 30 H 20 Rate Blood Pressure 150/68 146/66 Blood Pressure [Right Arm] O2 Sat by Pulse 100 Oximetry Fraction of 40 Inspired Oxygen (FIO2) 02/07/24 02/07/24 02/07/24 06:43 07:43 07:46 Temperature Pulse Rate 67 Pulse Rate [ Weatherization Field Technician ] Respiratory 16 Rate Blood Pressure 118/61 Blood Pressure [Right Arm] O2 Sat by Pulse 100 97 Oximetry Fraction of 40 40 Inspired Oxygen (FIO2) 02/07/24 02/07/24 02/07/24 08:59 11:00 11:18 Temperature Pulse Rate 67 64 Pulse Rate [ Weatherization Field Technician ] Respiratory 14 16 Rate Blood Pressure 166/63 167/76 Blood Pressure [Right Arm] O2 Sat by Pulse 96 99 Oximetry Fraction of 40 Inspired Oxygen (FIO2) 02/07/24 02/07/24 02/07/24 14:00 15:23 17:24 Temperature Pulse Rate 64 72 Pulse Rate [ Weatherization Field Technician ] Respiratory 20 20 Rate Blood Pressure 164/74 157/68 Blood Pressure [Right Arm] O2 Sat by Pulse 98 98 99 Oximetry Fraction of Inspired Oxygen (FIO2) 02/07/24 02/07/24 02/07/24 21:00 21:21 23:21 Temperature 97.8 F Pulse Rate 71 106 H 82 Pulse Rate [ Weatherization Field Technician ] Respiratory 18 16 Rate Blood Pressure 163/97 179/81 Blood Pressure [Right Arm] O2 Sat by Pulse 98 99 Oximetry Fraction of Inspired Oxygen (FIO2) 02/08/24 02/08/24 02/08/24 00:59 04:00 07:39 Temperature 98 F 98.2 F Pulse Rate Pulse Rate [ 71 75 Weatherization Field Technician ] Respiratory 19 15 Rate Blood Pressure Blood Pressure 158/65 148/65 [Right Arm] O2 Sat by Pulse 93 L 98 95 Oximetry Fraction of Inspired Oxygen (FIO2) 02/08/24 02/08/24 02/08/24 09:56 11:22 13:14 Temperature 97.5 F L Pulse Rate 63 68 Pulse Rate [ Weatherization Field Technician ] Respiratory 18 18 Rate Blood Pressure 152/77 104/54 Blood Pressure [Right Arm] O2 Sat by Pulse 95 96 97 Oximetry Fraction of Inspired Oxygen (FIO2) 02/08/24 02/08/24 15:20 15:54 Temperature 98.6 F Pulse Rate 66 Pulse Rate [ Weatherization Field Technician ] Respiratory 20 Rate Blood Pressure 122/57 Blood Pressure [Right Arm] O2 Sat by Pulse 97 95 Oximetry Fraction of Inspired Oxygen (FIO2) Medical Decision Making - Lab Data Result diagrams: 02/06/24 21:32 02/06/24 21:32 <Daiana Workman - Last Filed: 02/07/24 04:21> - Lab Data Result diagrams: 02/09/24 08:05 02/09/24 08:05 <Esperanza Shen - Last Filed: 02/15/24 00:54> - Medical Decision Making Was pt. sent in by a medical professional or institution (, PA, [employer] C[employer], urgent care, hospital, or [place] health [place] facility...) When possible be specific @ -No Did you speak to anyone other than the patient for history (EMS, parent, family, police, friend...)? What history was obtained from this source @ -History is mainly obtained from the patient's Did you review nursing and triage notes (agree or disagree)? Why? @ -I reviewed and agree with nursing and triage notes Were old charts reviewed (outside hosp., previous admission, EMS record, old EKG, old radiological studies, urgent care reports/EKG's, [place] health care facility records)? Report findings @ -No old charts were reviewed Differential Diagnosis (chest pain, altered mental status, abdominal pain women, abdominal pain men, vaginal bleeding, weakness, fever, dyspnea, syncope, head ache, dizziness, GI bleed, back pain, seizure, CVA, palpatations, mental health, musculoskeletal)? @ -MDM Differential Dyspnea: Coronary syndrome, arrhythmia, tamponade, asthma, COPD, pulmonary embolism, pneumonia, pneumothorax, pulmonary effusion, anaphylaxis, diabetic ketoacidosis, flailed chest, pulmonary contusion, diaphragmatic rupture, anemia, neuromuscular this is not meant to be an all-inclusive list. EKG interpreted by me (3pts min.). @ -EKG shows sinus rhythm with occasional ventricular premature complexes. Ventricular rate 68. MA interval 152. QRS 138. QT 402. QTc 419. X-rays interpreted by me (1pt min.). @ -Chest x-ray shows cardiomegaly with bilateral pleural effusions right greater than left with pulmonary edema is appreciated. Patchy airspace disease is suggested in the bilateral lungs. Postsurgical changes. CT interpreted by me (1pt min.). @ -None done U/S interpreted by me (1pt. min.). @ -None done What testing was considered but not performed or refused? (CT, X-rays, U/S, labs)? Why? @ -None What meds were considered but not given or refused? Why? @ -None Did you discuss the management of the patient with other professionals (professionals i.e. , PA, [employer], lab, RT, psych nurse, social worker health services, canal tender, teacher, chief executive officer, manager of case management)? Give summary @ -I spoke with Delano Teague from [facility] who accepts admission Was smoking cessation discussed for >3mins.? @ -No Was critical care preformed (if so, how long)? @ -No Were there social determinants of health that impacted care today? How? (Homelessness, low income, unemployed, alcoholism, drug addiction, transportation, low edu. Level, literacy, decrease access to med. care, alf, re hab)? @ -No Was there de-escalation of care discussed even if they declined (Discuss DNR or withdrawal of care, Hospice)? DNR status @ -I spoke with the patient and his family regarding his wishes for CODE STATUS. Patient and family states that the patient wishes to be a no code. What co-morbidities impacted this encounter? (DM, HTN, Smoking, COPD, CAD, Cancer, CVA, ARF, Chemo, Hep., AIDS, mental health diagnosis, sleep apnea, morbid obesity)? @ -Hypertension, hyperlipidemia, CAD Was patient admitted / discharged? Hospital course, mention meds given and route, prescriptions, significant lab abnormalities, going to OR and other pertinent info. @ -88-year-old male presenting with chief complaint of dyspnea worse on exertion and with laying down. No chest pain. History and physical examination are conducted. There is positive pedal edema. Lab work shows no leukocytosis or anemia. Troponin 0.027. BNP 25,200. Chest x-ray positive for cardiomegaly and pulmonary edema. Patient will be treated for CHF exacerbation with Lasix. Creatinine 1.60 and BUN 30, consistent with the patient's previous values. Patient will be admitted, patient and family are agreeable with this plan. Patient later required the use of BiPAP. I discussed this case with my attending Dr. Shen Undiagnosed new problem with uncertain prognosis? @ -No Drug Therapy requiring intensive monitoring for toxicity (Heparin, Nitro, Insulin, Cardizem)? @ -No Were any procedures done? @ -No Diagnosis/symptom? @ -CHF exacerbation Acute, or Chronic, or Acute on Chronic? @ -Acute Uncomplicated (without systemic symptoms) or Complicated (systemic symptoms)? @ -Complicated Side effects of treatment? @ -No Exacerbation, Progression, or Severe Exacerbation? @ -Exacerbation Poses a threat to life or bodily function? How? (Chest pain, [place], [place], pneumonia, PE, COPD, DKA, ARF, appy, cholecystitis, CVA, Diverticulitis, Homicidal, Suicidal, threat to staff... and all critical care pts) @ -Yes (Daiana Workman) critical care time - 35 minutes for bipap management (Esperanza Shen) - Lab Data Lab Results 02/06/24 02/06/24 02/06/24 Range/Units 21:32 21:32 21:32 WBC 6.1 (3.8-10.6) k/uL RBC 4.31 (4.30-5.90) m/uL Hgb 13.7 (13.0-17.5) gm/dL Hct 43.5 (39.0-53.0) % MCV 100.9 H (80.0-100.0) fL MCH 31.9 (25.0-35.0) pg MCHC 31.6 (31.0-37.0) g/dL RDW 14.1 (11.5-15.5) % Plt Count 161 (150-450) k/uL MPV 7.8 Neutrophils % 71 % Lymphocytes % 16 % Monocytes % 9 % Eosinophils % 2 % Basophils % 1 % Neutrophils # 4.3 (1.3-7.7) k/uL Lymphocytes # 1.0 (1.0-4.8) k/uL Monocytes # 0.6 (0-1.0) k/uL Eosinophils # 0.1 (0-0.7) k/uL Basophils # 0.0 (0-0.2) k/uL Hypochromasia Moderate Macrocytosis Slight PT 11.6 (10.0-12.5) sec INR 1.1 (<1.2) APTT 25.2 (22.0-30.0) sec Sodium 140 (137-145) mmol/L Potassium 4.5 (3.5-5.1) mmol/L Chloride 110 H (98-107) mmol/L Carbon Dioxide 23 (22-30) mmol/L Anion Gap 7 mmol/L BUN 30 H (9-20) mg/dL Creatinine 1.63 H (0.66-1.25) mg/dL Est GFR (CKD-EPI)AfAm 43 (>60 ml/min/1.73 sqM) Est GFR (CKD-EPI)NonAf 37 (>60 ml/min/1.73 sqM) Glucose 110 H (74-99) mg/dL Plasma Lactic Acid Ruben (0.7-2.0) mmol/L Calcium 9.1 (8.4-10.2) mg/dL Total Bilirubin 0.5 (0.2-1.3) mg/dL AST 17 (17-59) U/L ALT 11 (4-49) U/L Alkaline Phosphatase 61 (38-126) U/L Troponin I (0.000-0.034) ng/mL NT-Pro-B Natriuret Pep 14990 pg/mL Total Protein 6.2 L (6.3-8.2) g/dL Albumin 3.7 (3.5-5.0) g/dL 02/06/24 02/06/24 Range/Units 21:32 21:32 WBC (3.8-10.6) k/uL RBC (4.30-5.90) m/uL Hgb (13.0-17.5) gm/dL Hct (39.0-53.0) % MCV (80.0-100.0) fL MCH (25.0-35.0) pg MCHC (31.0-37.0) g/dL RDW (11.5-15.5) % Plt Count (150-450) k/uL MPV Neutrophils % % Lymphocytes % % Monocytes % % Eosinophils % % Basophils % % Neutrophils # (1.3-7.7) k/uL Lymphocytes # (1.0-4.8) k/uL Monocytes # (0-1.0) k/uL Eosinophils # (0-0.7) k/uL Basophils # (0-0.2) k/uL Hypochromasia Macrocytosis PT (10.0-12.5) sec INR (<1.2) APTT (22.0-30.0) sec Sodium (137-145) mmol/L Potassium (3.5-5.1) mmol/L Chloride (98-107) mmol/L Carbon Dioxide (22-30) mmol/L Anion Gap mmol/L BUN (9-20) mg/dL Creatinine (0.66-1.25) mg/dL Est GFR (CKD-EPI)AfAm (>60 ml/min/1.73 sqM) Est GFR (CKD-EPI)NonAf (>60 ml/min/1.73 sqM) Glucose (74-99) mg/dL Plasma Lactic Acid Ruben 1.9 (0.7-2.0) mmol/L Calcium (8.4-10.2) mg/dL Total Bilirubin (0.2-1.3) mg/dL AST (17-59) U/L ALT (4-49) U/L Alkaline Phosphatase (38-126) U/L Troponin I 0.027 (0.000-0.034) ng/mL NT-Pro-B Natriuret Pep pg/mL Total Protein (6.3-8.2) g/dL Albumin (3.5-5.0) g/dL Disposition Time of Disposition: 23:30 <Daiana Workman - Last Filed: 02/07/24 04:21> <Esperanza Shen - Last Filed: 02/15/24 00:54> Clinical Impression: Congestive heart failure Disposition: ADMITTED IP TO THIS HOSP Condition: Fair
[2024-02-06 21:57] LABS: Basophils % (A) 1 %; Eosinophils # (A) 0.1 k/uL (0-0.7); Eosinophils % (A) 2 %; HCT 43.5 % (39.0-53.0); HGB 13.7 gm/dL (13.0-17.5); Hypochromasia Moderate; Lymphocytes % (A) 16 %; MCH 31.9 pg (25.0-35.0); MCHC 31.6 g/dL (31.0-37.0); MCV 100.9 fL (80.0-100.0); Macrocytosis Slight; Mean Platelet Volume 7.8; Monocytes # (A) 0.6 k/uL (0-1.0); Monocytes % (A) 9 %; Neutrophils # (A) 4.3 k/uL (1.3-7.7); Neutrophils % (A) 71 %; Platelet Count 161 k/uL (150-450); RBC 4.31 m/uL (4.30-5.90); RDW 14.1 % (11.5-15.5); WBC 6.1 k/uL (3.8-10.6)
--- NOTE | 2024-02-06 22:02 | XR ---
EXAMINATION TYPE: XR chest 2V DATE OF EXAM: 02/06/2024 9:41 PM CLINICAL INDICATION:Male, 88 years old with history of altered mental status COMPARISON: Chest radiograph 05/15/2019 TECHNIQUE: XR chest 2V Frontal view of the chest. FINDINGS: Low lung volumes are present. There are bilateral pleural effusions right greater than left. There ar e some patchy airspace opacities bilaterally. The cardiac silhouette is overall obscured. No pneumoth orax is discretely appreciated. Sternotomy wires with postsurgical clips are redemonstrated. No acute osseous abnormality. IMPRESSION: 1. Cardiomegaly with bilateral pleural effusions right greater than left with pulmonary edema is appr eciated. 2. Patchy airspace disease is suggested in the bilateral lungs. 3. Postsurgical changes.
[2024-02-06 22:03] LABS: INR 1.1 (<1.2); Partial Thromboplastin Time 25.2 sec (22.0-30.0); Prothrombin Time 11.6 sec (10.0-12.5)
[2024-02-06 22:14] LABS: ALT 11 U/L (4-49); AST 17 U/L (17-59); African American GFR (CKD) 43 (>60 ml/min/1.73 sqM); Albumin 3.7 g/dL (3.5-5.0); Alkaline Phosphatase 61 U/L (38-126); Anion Gap 7 mmol/L; Blood Urea Nitrogen 30 mg/dL (9-20); Calcium 9.1 mg/dL (8.4-10.2); Carbon Dioxide 23 mmol/L (22-30); Chloride 110 mmol/L (98-107); Glucose 110 mg/dL (74-99); Non-African American GFR(CKD) 37 (>60 ml/min/1.73 sqM); Potassium 4.5 mmol/L (3.5-5.1); Sodium 140 mmol/L (137-145); Total Bilirubin 0.5 mg/dL (0.2-1.3); Total Protein 6.2 g/dL (6.3-8.2)
[2024-02-06 22:23] LABS: NT-Pro-B-Type Natriuretic Pept 25200 pg/mL
[2024-02-06] MEDS: FUROSEMIDE 10 MG/ML 4 ML VIAL IV STA (23:16)
[2024-02-06] MEDS ORDERED: NALOXONE 0.4 MG/ML 1 ML VIAL IV PRN (23:29)
[2024-02-07] MEDS: hydrALAZINE HCL 20 MG/ML 1 ML VIAL IVP STA (00:49)
--- NOTE | 2024-02-07 13:17 | P.CNPUL ---
History of Present Illness Consult date: 02/07/24 Requesting physician: Jose Keating Reason for consult: dyspnea, pleural effusion Chief complaint: Shortness of breath History of present illness: This is an 88-year-old white male with history of hypertension, coronary artery disease, multiple back surgeries, dyslipidemia, patient normally sees Dr. Mejia for his cardiac issues. Presented to ER with few days history of increased shortness of breath, weakness, fatigue, shortness of breath is worse when he lays down. Patient was told by his primary care physician that his chest x-ray in the office showed evidence of fluid on the lungs. Hence patient was brought in here today, indeed his chest x-ray is consistent with congestive heart fa ilure and he does have a small to moderate right-sided pleural effusion, hence this consult was initiated. WBC count is 6.1 hemoglobin 13.7 basic metabolic profile is normal BUN is 30 creatinine 1.63, BNP level is over 25,000. Troponin 0.027. Chest x-ray showed cardiomegaly with bilateral pleural effusions right more so than left, patient is on 2 L nasal cannula, O2 saturation 100%. Does not seem to be in distress. Review of Systems REVIEW OF SYSTEMS: CONSTITUTIONAL: Generalized weakness, patient is mostly bedbound, cannot ambulate with assistance. EYES: Negative. ENT: Negative. CARDIAC: Shortness of breath on laying flat. PULMONARY: Shortness of breath, no cough no wheezing no chest pain no hemoptysis GI: Negative. GENITOURINARY: Negative. MUSCULOSKELETAL: Chronic back pain, multiple surgeries on the back. SKIN: Negative. NEUROPSYCH: Negative. ENDOCRINE: Negative. HEMATOLOGIC: Negative. Past Medical History Past Medical History: Chest Pain / Angina, GERD/Reflux, Hyperlipidemia, Hypertension, Myocardial Infarction ([place]), Osteoarthritis (OA) Additional Past Medical History / Comment(s): kidney stone, TIA, HIATAL HERNIA, PALPATIONS, DDD Last Myocardial Infarction Date:: 1992 History of Any Multi-Drug Resistant Organisms: None Reported Past Surgical History: Adenoidectomy, Back Surgery, Coronary Bypass/CABG, Heart Catheterization, Hernia Repair, Tonsillectomy Additional Past Surgical History / Comment(s): LT carotid endarectomy, back surgery FUSION, SX FOR HIATAL HERNIA-PT STATED IT DID'NT WORK.X2 CABG 1982 AND 2008,HARRISON CATARACTS,REPAIR OF TORN RETINA, EGD, HARRISON INGUIANL HERNIA REPAIR, HARRISON CARPAL TUNNEL RELEASE,HARRISON ROTATOR CUFF REPAIR, CYSTOCOPY(HAD KIDNEY STONE) Past Anesthesia/Blood Transfusion Reactions: No Reported Reaction Past Psychological History: No Psychological Hx Reported Smoking Status: Never smoker Past Alcohol Use History: Occasional Past Drug Use History: Marijuana - Past Family History Father Family Medical History: No Reported History Mother Family Medical History: No Reported History Medications and Allergies Home Medications Medication Instructions Recorded Confirmed Type Losartan Potassium 50 mg PO DAILY 02/05/19 02/07/24 History Allergies Allergy/AdvReac Type Severity Reaction Status Date / Time No Known Allergies Allergy Verified 02/07/24 09:44 Physical Exam Vitals: Vital Signs Temp Pulse Resp BP Pulse Ox FiO2 02/07/24 11:18 40 02/07/24 11:00 64 16 167/76 99 02/07/24 08:59 67 14 166/63 96 02/07/24 07:46 97 40 02/07/24 07:43 40 02/07/24 06:43 67 16 118/61 100 02/07/24 05:21 40 02/07/24 04:00 70 20 146/66 100 02/07/24 01:00 82 30 H 150/68 02/07/24 00:59 40 02/06/24 23:17 79 19 153/82 92 L 02/06/24 19:50 97.8 F 66 20 171/69 97 Intake and Output 02/06/24 02/07/24 02/07/24 22:59 06:59 14:59 Output Total 1100 Balance -1100 Output: Urine 1100 Other: Weight 60.781 kg GENERAL: Revealed 88-year-old white male looks frail, chronically ill, not in any distress Head: Atraumatic, normocephalic. HEENT: Pupils are round and equally reacting to light. EOMI. No scleral icterus. No conjunctival pallor. Normocephalic, atraumatic. No pharyngeal erythema. No thyromegaly. CARDIOVASCULAR: S1 and S2 present. 2/6 systolic murmur throughout the precordium. PULMONARY: Fine crackles at the bases no rhonchi no wheezes. Diminished breath sounds at the right base. And dullness ABDOMEN: Soft, nontender, nondistended, normoactive bowel sounds. No palpable organomegaly. MUSCULOSKELETAL: No deformities and no limitation range of motion EXTREMITIES: No clubbing edema or cyanosis. NEUROLOGICAL: Alert oriented x 3 no gross focal neurologic deficit but he seems to be generally weak Psychiatric: Normal mood, affect and no mental status examination SKIN: No rashes. Results - Laboratory Findings CBC and BMP: 02/06/24 21:32 02/06/24 21:32 PT/INR, D-dimer PT 11.6 sec (10.0-12.5) 02/06/24 21:32 INR 1.1 (<1.2) 02/06/24 21:32 Abnormal lab findings: Abnormal Labs 02/06/24 02/06/24 21:32 21:32 MCV 100.9 H Chloride 110 H BUN 30 H Creatinine 1.63 H Glucose 110 H Total Protein 6.2 L - Diagnostic Findings Chest x-ray: image reviewed (As noted in HPI) Assessment and Plan Assessment: Impression: Acute congestive heart failure, not clear whether this is systolic or diastolic, echocardiogram is pending. Bilateral pleural effusions right more so than left, secondary to above Benign essential hypertension History of degenerative joint disease and multiple back surgeries History of nephrolithiasis History of TIAs History of GERD without esophagitis History of chronic kidney disease, baseline creatinine in 2021 is 1.7 Recommendation: Continue oxygen and titrate accordingly Continue diuretics patient is now on Lasix Resume home meds Close monitoring of renal profile Will arrange for ultrasound of the chest, and if no improvement with medical treatment could consider right-sided thoracentesis Echocardiogram is pending Cardiac consultation is pending Will continue to follow. Time with Patient: Greater than 30
--- NOTE | 2024-02-07 13:52 | US ---
EXAMINATION TYPE: US chest DATE OF EXAM: 02/07/2024 COMPARISON: NONE CLINICAL INDICATION: Male, 88 years old with history of Markings for thoracentesis by pulmonary staff ; TECHNIQUE: Targeted ultrasound of the posterior lower bilateral hemithoraces EXAM MEASUREMENTS: Right Pleural Effusion pocket size: 6.3 cm Right skin surface to fluid distance: 1.7 cm Left Pleural Effusion pocket size: 4.8 cm Left skin surface to fluid distance: 1.6 cm Right side marked for possible thoracentesis outside the dept. Left side marked for possible thoracentesis outside the dept. Pulmonologists are able to review the images in the patient?s EMR. IMPRESSIONS: Bilateral pleural effusions marked for thoracentesis. [facility], Workstation [id number], 02/07/2024 1:50 PM
--- NOTE | 2024-02-07 14:02 | P.CRDCN ---
History of Present Illness Consult date: 02/07/24 History of present illness: The patient is a pleasant 88-year-old gentleman with a past medical history significant for coronary artery disease with prior CABG and redo CABG with unknown details at this point as well as history of hypertension and dyslipidemia and history of TIA. The patient presented to the hospital complaining of progressive exertional dyspnea for the last several days associated with bilateral lower extremities edema and associated with symptoms of chest tightness. No other cardiovascular symptoms of dizziness or lightness or any feeling of heart racing or furthering or presyncope or syncope. He never diagnosed with congestive heart failure before. Further investigation performed including an EKG and that showed sinus mechanism with diffuse nonspecific ST and T wave abnormalities. NT proBNP came to be a bit of 25,000. The chest x-ray showed finding consistent with pulmonary vascular congestions and also bilateral pleural effusion worse on the left than the right and currently patient is in process of having an ultrasound of the chest. An echocardiogram was ordered as well and in process to be done. His blood work indicating renal failure which appears to be mild but there is no prior kidney function to compare. He was giv en 1 dose of Lasix with significant improvement in the symptoms. The physical examination is remarkable for elevated blood pressure consistent with stage II hypertension with regular rate and rhythm and systolic murmur at the right and left upper sternal border and apical area and diminished breathing sounds bilaterally and mild bilateral lower extremities edema Assessment Heart failure exacerbation of unknown etiology Bilateral pleural effusion secondary to heart failure Hypertension not well-controlled History of CAD and status post CABG and redo CABG History of TIA Plan Start the patient on IV diuretics Obtain an echocardiogram with Doppler Monitor the kidney function and electrolytes Follow-up with the second and third set of cardiac enzymes Follow-up with the patient Past Medical History Past Medical History: Chest Pain / Angina, GERD/Reflux, Hyperlipidemia, Hypertension, Myocardial Infarction ([place]), Osteoarthritis (OA) Additional Past Medical History / Comment(s): kidney stone, TIA, HIATAL HERNIA, PALPATIONS, DDD Last Myocardial Infarction Date:: 1992 History of Any Multi-Drug Resistant Organisms: None Reported Past Surgical History: Adenoidectomy, Back Surgery, Coronary Bypass/CABG, Heart Catheterization, Hernia Repair, Tonsillectomy Additional Past Surgical History / Comment(s): LT carotid endarectomy, back surgery FUSION, SX FOR HIATAL HERNIA-PT STATED IT DID'NT WORK.X2 CABG 1982 AND 2008,HARRISON CATARACTS,REPAIR OF TORN RETINA, EGD, HARRISON INGUIANL HERNIA REPAIR, HARRISON CARPAL TUNNEL RELEASE,HARRISON ROTATOR CUFF REPAIR, CYSTOCOPY(HAD KIDNEY STONE) Past Anesthesia/Blood Transfusion Reactions: No Reported Reaction Past Psychological History: No Psychological Hx Reported Smoking Status: Never smoker Past Alcohol Use History: Occasional Past Drug Use History: Marijuana - Past Family History Father Family Medical History: No Reported History Mother Family Medical History: No Reported History Medications and Allergies Home Medications Medication Instructions Recorded Confirmed Type Losartan Potassium 50 mg PO DAILY 02/05/19 02/07/24 History Allergies Allergy/AdvReac Type Severity Reaction Status Date / Time No Known Allergies Allergy Verified 02/07/24 09:44 Physical Exam Vitals: Vital Signs Temp Pulse Resp BP Pulse Ox FiO2 02/07/24 11:18 40 02/07/24 11:00 64 16 167/76 99 02/07/24 08:59 67 14 166/63 96 02/07/24 07:46 97 40 02/07/24 07:43 40 02/07/24 06:43 67 16 118/61 100 02/07/24 05:21 40 02/07/24 04:00 70 20 146/66 100 02/07/24 01:00 82 30 H 150/68 02/07/24 00:59 40 02/06/24 23:17 79 19 153/82 92 L 02/06/24 19:50 97.8 F 66 20 171/69 97 Intake and Output 02/06/24 02/07/24 02/07/24 22:59 06:59 14:59 Output Total 1100 Balance -1100 Output: Urine 1100 Other: Weight 60.781 kg Results 02/06/24 21:32 02/06/24 21:32 Cardiac Enzymes 02/06/24 02/06/24 Range/Units 21:32 21:32 AST 17 (17-59) U/L Troponin I 0.027 (0.000-0.034) ng/mL Coagulation 02/06/24 Range/Units 21:32 PT 11.6 (10.0-12.5) sec APTT 25.2 (22.0-30.0) sec CBC 02/06/24 Range/Units 21:32 WBC 6.1 (3.8-10.6) k/uL RBC 4.31 (4.30-5.90) m/uL Hgb 13.7 (13.0-17.5) gm/dL Hct 43.5 (39.0-53.0) % Plt Count 161 (150-450) k/uL Comprehensive Metabolic Panel 02/06/24 Range/Units 21:32 Sodium 140 (137-145) mmol/L Potassium 4.5 (3.5-5.1) mmol/L Chloride 110 H (98-107) mmol/L Carbon Dioxide 23 (22-30) mmol/L BUN 30 H (9-20) mg/dL Creatinine 1.63 H (0.66-1.25) mg/dL Glucose 110 H (74-99) mg/dL Calcium 9.1 (8.4-10.2) mg/dL AST 17 (17-59) U/L ALT 11 (4-49) U/L Alkaline Phosphatase 61 (38-126) U/L Total Protein 6.2 L (6.3-8.2) g/dL Albumin 3.7 (3.5-5.0) g/dL Current Medications Generic Name Dose Route Start Last Admin Trade Name Freq PRN Reason Stop Dose Admin Furosemide 40 mg 02/07/24 21:00 Furosemide 10 Mg/Ml 4 Ml Vial IV Q12HR JOSE F Naloxone HCl 0.2 mg 02/06/24 23:29 Naloxone 0.4 Mg/Ml 1 Ml Vial IV Q2M PRN Opioid Reversal Intake and Output 02/06/24 02/07/24 02/07/24 22:59 06:59 14:59 Output Total 1100 Balance -1100 Output: Urine 1100 Other: Weight 60.781 kg 02/06/24 21:32 02/06/24 21:32
[2024-02-07] MEDS ORDERED: HEPARIN SODIUM 1,000 UN/ML (10ML VL) IV PRN (17:06)
--- NOTE | 2024-02-07 17:11 | P.HPIM ---
History of Present Illness H&P Date: 02/07/24 History of present illness: This is a 88-year-old male patient with past medical history significant for coronary artery disease, CHF, history of CVA, history of CKD, multiple back surgery, hypertension, hyperlipidemia who presented to ER for increasing shortness of breath weakness, fatigue, for the last few days. Patient reported that shortness of breath was getting worse when he lays down, also noted productive cough with clear sputum. Patient was told by his PCP that his x-ray showed evidence of fluid on the lungs, patient was brought to the ED ER. Patient denied any fever or chills. Patient denied any sore throat, chest pain, palpitation, nausea vomiting diarrhea constipation abdominal pain dysuria urgency frequency. at bedside. Chest x-ray showed CHF, bilateral pleural effusion WBC 6.1, hemoglobin 13.7, BUN 30, creatinine 1.63, proBNP more than 25,000 Troponin 0.027. REVIEW OF SYSTEMS: CONSTITUTIONAL: Complains of fatigue. HEENT: No recent visual problems or hearing problems. Denied any sore throat. CARDIOVASCULAR: No chest pain, orthopnea, PND, no palpitations, no syncope. PULMONARY: Shortness of breath, cough GASTROINTESTINAL: No diarrhea, no nausea, no vomiting, no abdominal pain. NEUROLOGICAL: No headaches, no weakness, no numbness. HEMATOLOGICAL: Denies any bleeding or petechiae. GENITOURINARY: Denies any burning micturition, frequency, or urgency. MUSCULOSKELETAL/RHEUMATOLOGICAL: Denies any joint pain, swelling, or any muscle pain. ENDOCRINE: Denies any polyuria or polydipsia. The rest of the 14-point review of systems is negative. PHYSICAL EXAMINATION: GENERAL: The patient is A&O x3, NAD HEENT: EOMI, Sclerae anicteric, Moist Mucous membranes Neck: Supple, Non tender, No JVD PULMONARY: Decreased breath sound bilaterally, bilateral crackles. CARDIOVASCULAR: S1, S2 present. No murmurs, rubs, or gallops. ABDOMEN: Soft, nontender, nondistended, normoactive bowel sounds. No guarding or rebound tenderness. MUSCULOSKELETAL: No edema, No cyanosis. No clubbing. Normal ROM. Intact peripheral pulses. EXTREMITIES: No cyanosis, clubbing, or pedal edema. NEUROLOGICAL: CN 2-12 grossly intact. No FND Assessment and plan: Acute on chronic CHFsystolic versus diastolic Bilateral pleural effusion: R>L Elevated troponin: Hypertension Hyperlipidemia History of CVA: CKD with baseline creatinine 1.7 History of CAD/CABG and redo CABG: Plan: Monitor daily weight and I&O's, cardiac diet IV diuresis Echocardiogram Monitor renal function Monitor troponin Imdur, heparin drip, aspirin, statin. Echocardiogram Cardiology consult Pulmonary consult DVT prophylaxis AC Monitor vital signs and labs Continue telemetry monitoring Labs and medication were reviewed. Continue same treatment. Resume home medication. Further recommendations as per clinical course of the patient Dictation was produced using [employer] dictation software. please excuse any grammatical, word or spelling errors. Past Medical History Past Medical History: Chest Pain / Angina, GERD/Reflux, Hyperlipidemia, Hypertension, Myocardial Infarction ([place]), Osteoarthritis (OA) Additional Past Medical History / Comment(s): kidney stone, TIA, HIATAL HERNIA, PALPATIONS, DDD Last Myocardial Infarction Date:: 1992 History of Any Multi-Drug Resistant Organisms: None Reported Past Surgical History: Adenoidectomy, Back Surgery, Coronary Bypass/CABG, Heart Catheterization, Hernia Repair, Tonsillectomy Additional Past Surgical History / Comment(s): LT carotid endarectomy, back surgery FUSION, SX FOR HIATAL HERNIA-PT STATED IT DID'NT WORK.X2 CABG 1982 AND 2008,HARRISON CATARACTS,REPAIR OF TORN RETINA, EGD, HARRISON INGUIANL HERNIA REPAIR, HARRISON CARPAL TUNNEL RELEASE,HARRISON ROTATOR CUFF REPAIR, CYSTOCOPY(HAD KIDNEY STONE) Past Anesthesia/Blood Transfusion Reactions: No Reported Reaction Past Psychological History: No Psychological Hx Reported Smoking Status: Never smoker Past Alcohol Use History: Occasional Past Drug Use History: Marijuana - Past Family History Father Family Medical History: No Reported History Mother Family Medical History: No Reported History Medications and Allergies Home Medications Medication Instructions Recorded Confirmed Type Losartan Potassium 50 mg PO DAILY 02/05/19 02/07/24 History Allergies Allergy/AdvReac Type Severity Reaction Status Date / Time No Known Allergies Allergy Verified 02/07/24 09:44 Physical Exam Vitals: Vital Signs Temp Pulse Resp BP Pulse Ox FiO2 02/07/24 15:23 98 02/07/24 14:00 64 20 164/74 98 02/07/24 11:18 40 02/07/24 11:00 64 16 167/76 99 02/07/24 08:59 67 14 166/63 96 02/07/24 07:46 97 40 02/07/24 07:43 40 02/07/24 06:43 67 16 118/61 100 02/07/24 05:21 40 02/07/24 04:00 70 20 146/66 100 02/07/24 01:00 82 30 H 150/68 02/07/24 00:59 40 02/06/24 23:17 79 19 153/82 92 L 02/06/24 19:50 97.8 F 66 20 171/69 97 Intake and Output 02/07/24 02/07/24 02/07/24 06:59 14:59 22:59 Output Total 1100 Balance -1100 Output: Urine 1100 Results CBC & Chem 7: 02/06/24 21:32 02/06/24 21:32 Labs: Abnormal Lab Results - Last 24 Hours (Table) 02/06/24 02/06/24 02/07/24 Range/Units 21:32 21:32 14:13 MCV 100.9 H (80.0-100.0) fL Chloride 110 H (98-107) mmol/L BUN 30 H (9-20) mg/dL Creatinine 1.63 H (0.66-1.25) mg/dL Glucose 110 H (74-99) mg/dL Troponin I 0.160 H* (0.000-0.034) ng/mL Total Protein 6.2 L (6.3-8.2) g/dL
[2024-02-07] MEDS: NITROGLYCERIN OINT 1 INCH/GM PACKET TOPICAL SCH (17:25)
[2024-02-07] MEDS: HEPARIN SODIUM 1,000 UN/ML (10ML VL) IV ONE (17:36)
[2024-02-07] MEDS: HEPARIN SOD,PORK IN 0.45% NACL 25,000 UNIT in 0.45% NACL 1 250ML.BAG IV SCH (17:37)
[2024-02-07] MEDS: ASPIRIN 81 MG PO SCH (17:39)
[2024-02-07 17:58] LABS: Basophils % (A) 1 %; Eosinophils # (A) 0.1 k/uL (0-0.7); Eosinophils % (A) 1 %; HCT 45.4 % (39.0-53.0); Hypochromasia Moderate; Lymphocytes # (A) 0.8 k/uL (1.0-4.8); Lymphocytes % (A) 12 %; MCH 31.3 pg (25.0-35.0); MCHC 30.9 g/dL (31.0-37.0); MCV 101.1 fL (80.0-100.0); Macrocytosis Slight; Monocytes # (A) 0.6 k/uL (0-1.0); Monocytes % (A) 8 %; Neutrophils # (A) 5.5 k/uL (1.3-7.7); Neutrophils % (A) 77 %; Platelet Count 184 k/uL (150-450); RBC 4.49 m/uL (4.30-5.90); RDW 14.1 % (11.5-15.5); WBC 7.1 k/uL (3.8-10.6)
[2024-02-07 18:07] LABS: INR 1.1 (<1.2); Partial Thromboplastin Time 25.8 sec (22.0-30.0); Prothrombin Time 12.1 sec (10.0-12.5)
[2024-02-07] MEDS: ATORVASTATIN 40 MG TAB PO SCH (20:18)
[2024-02-07] MEDS: FUROSEMIDE 10 MG/ML 4 ML VIAL IV SCH (20:18)
[2024-02-08 07:18] LABS: Basophils % (A) 1 %; Eosinophils # (A) 0.1 k/uL (0-0.7); Eosinophils % (A) 2 %; HCT 46.7 % (39.0-53.0); HGB 14.8 gm/dL (13.0-17.5); Hypochromasia Slight; Lymphocytes % (A) 15 %; MCH 31.8 pg (25.0-35.0); MCHC 31.6 g/dL (31.0-37.0); MCV 100.4 fL (80.0-100.0); Macrocytosis Slight; Monocytes # (A) 0.5 k/uL (0-1.0); Monocytes % (A) 7 %; Neutrophils # (A) 4.8 k/uL (1.3-7.7); Neutrophils % (A) 73 %; Platelet Count 175 k/uL (150-450); RBC 4.65 m/uL (4.30-5.90); WBC 6.6 k/uL (3.8-10.6)
[2024-02-08 07:35] LABS: INR 1.1 (<1.2); Partial Thromboplastin Time 52.1 sec (22.0-30.0); Prothrombin Time 12.1 sec (10.0-12.5)
--- NOTE | 2024-02-08 09:42 | P.PN ---
Subjective Progress Note Date: 02/08/24 The patient is a pleasant 88-year-old gentleman with a past medical history significant for coronary artery disease with prior CABG and redo CABG with unknown details at this point as well as history of hypertension and dyslipidemia and history of TIA. The patient presented to the hospital complaining of progressive exertional dyspnea for the last several days associated with bilateral lower extremities edema and associated with symptoms of chest tightness. No other cardiovascular symptoms of dizziness or lightness or any feeling of heart racing or furthering or presyncope or syncope. He never diagnosed with congestive heart failure before. Further investigation performed including an EKG and that showed sinus mechanism with diffuse nonspecific ST and T wave abnormalities. NT proBNP came to be a bit of 25,000. The chest x-ray showed finding consistent with pulmonary vascular congestions and also bilateral pleural effusion worse on the left than the right and currently patient is in process of having an ultrasound of the chest. An echocardiogram was ordered as well and in process to be done. His blood work indicating renal failure which appears to be mild but there is no prior kidney function to compare. He was given 1 dose of Lasix with significant improvement in the symptoms. The physical examination is remarkable for elevated blood pressure consistent with stage II hypertension with regular rate and rhythm and systolic murmur at the right and left upper sternal border and apical area and diminished breathing sounds bilaterally and mild bilateral lower extremities edema February 08, 2024 The patient was seen this morning with he is feeling better. The shortness of breath has improved as well as the lower extremities edema. The pressure is elevated. I am going to add carvedilol to the current medical regimen. Beside that continue heparin for a total of 48 hours and continue IV diuretics. The echo still pending. The physical examination is remarkable for regular rhythm with a systolic murmur at the apical area and diminished breathing sounds bilaterally and bilateral lower extremities edema. Overall he is still hypervolemic. Assessment Heart failure exacerbation of unknown etiology Bilateral pleural effusion secondary to heart failure Hypertension and the pressure remains elevated History of CAD and status post CABG and redo CABG History of TIA Plan Continue the heparin for a total of 48 hours Continue IV Lasix Continue monitoring the kidney function and electrolytes Add carvedilol to the current medical regimen Follow-up on the echocardiogram Objective - Vital Signs Vital signs: Vital Signs Temp 98.2 F 02/08/24 04:00 Pulse 75 02/08/24 04:00 Resp 15 02/08/24 04:00 BP 148/65 02/08/24 04:00 Pulse Ox 95 02/08/24 07:39 FiO2 40 02/07/24 11:18 Intake & Output 02/07/24 02/08/24 02/08/24 18:59 06:59 18:59 Intake Total 47.533 Output Total 1100 550 Balance -1100 -502.467 Intake: Intake, IV Titration 47.533 Amount Heparin Sod,Pork in 0.45% 47.533 NaCl 25,000 unit In 0.45 % NaCl 1 250ml.bag @ 12 UNITS/KG/HR 7.294 mls/hr IV .Q24H [facility] Rx#: [id number] Output: Urine 1100 550 - Labs CBC & Chem 7: 02/08/24 06:50 02/06/24 21:32 Labs: Abnormal Lab Results - Last 24 Hours (Table) 02/07/24 02/07/24 02/07/24 Range/Units 14:13 17:33 17:33 MCV 101.1 H (80.0-100.0) fL MCHC 30.9 L (31.0-37.0) g/dL Lymphocytes # 0.8 L (1.0-4.8) k/uL APTT (22.0-30.0) sec Troponin I 0.160 H* 0.146 H* (0.000-0.034) ng/mL 02/07/24 02/08/24 02/08/24 Range/Units 22:59 06:50 06:50 MCV 100.4 H (80.0-100.0) fL MCHC (31.0-37.0) g/dL Lymphocytes # (1.0-4.8) k/uL APTT 80.5 H 52.1 H (22.0-30.0) sec Troponin I (0.000-0.034) ng/mL
--- NOTE | 2024-02-08 12:37 | P.PN ---
Subjective Progress Note Date: 02/08/24 This is an 88-year-old white male with history of hypertension, coronary artery disease, multiple back surgeries, dyslipidemia, patient normally sees Dr. Mejia for his cardiac issues. Presented to ER with few days history of increased shortness of breath, weakness, fatigue, shortness of breath is worse when he lays down. Patient was told by his primary care physician that his chest x-ray in the office showed evidence of fluid on the lungs. Hence patient was brought in here today, indeed his chest x-ray is consistent with congestive heart failure and he does have a small to moderate right-sided pleural effusion, hence this consult was initiated. WBC count is 6.1 hemoglobin 13.7 basic metabolic profile is normal BUN is 30 creatinine 1.63, BNP level is over 25,000. Troponin 0.027. Chest x-ray showed cardiomegaly with bilateral pleural effusions right more so than left, patient is on 2 L nasal cannula, O2 saturation 100%. Does not seem to be in distress. The patient is seen today February 08, 2024 in follow-up in the emergency department. He is currently sitting up on a stretcher. Awake and alert in no acute distress. Maintaining O2 saturations in the 90s on 5 L high flow nasal cannula. Ultrasound of the chest revealed a 6 cm pocket on the right and a 4.8 cm pocket on the left. No plans for thoracentesis. He remains on IV diuretics. Currently in a -1.6 L balance. He did have a troponin leak and is currently on a heparin drip. Objective - Vital Signs Vital signs: Vital Signs Temp 97.5 F L 02/08/24 09:56 Pulse 63 02/08/24 09:56 Resp 18 02/08/24 09:56 BP 152/77 02/08/24 09:56 Pulse Ox 96 02/08/24 11:22 FiO2 40 02/07/24 11:18 Intake & Output 02/07/24 02/08/24 02/08/24 18:59 06:59 18:59 Intake Total 47.533 Output Total 1100 550 450 Balance -1100 -502.467 -450 Intake: Intake, IV Titration 47.533 Amount Heparin Sod,Pork in 0.45% 47.533 NaCl 25,000 unit In 0.45 % NaCl 1 250ml.bag @ 12 UNITS/KG/HR 7.294 mls/hr IV .Q24H [facility] Rx#: [id number] Output: Urine 1100 550 450 - Exam GENERAL EXAM: Alert, frail 88-year-old male on 5 L nasal cannula, comfortable in no apparent distress. HEAD: Normocephalic. EYES: Normal reaction of pupils, equal size. NOSE: Clear with pink turbinates. THROAT: No erythema or exudates. NECK: No masses, no JVD. CHEST: No chest wall deformity. LUNGS: Equal air entry with crackles in the bilateral bases right greater than left. CVS: S1 and S2 normal with an audible murmur, regular rhythm. ABDOMEN: No hepatosplenomegaly, normal bowel sounds, no guarding or rigidity. SPINE: No scoliosis or deformity SKIN: No rashes CENTRAL NERVOUS SYSTEM: No focal deficits, tone is normal in all 4 extremities. EXTREMITIES: There is 1+ peripheral edema. No clubbing, no cyanosis. Peripheral pulses are intact. - Labs CBC & Chem 7: 02/08/24 06:50 02/06/24 21:32 Labs: Abnormal Lab Results - Last 24 Hours (Table) 02/07/24 02/07/24 02/07/24 Range/Units 14:13 17:33 17:33 MCV 101.1 H (80.0-100.0) fL MCHC 30.9 L (31.0-37.0) g/dL Lymphocytes # 0.8 L (1.0-4.8) k/uL APTT (22.0-30.0) sec Troponin I 0.160 H* 0.146 H* (0.000-0.034) ng/mL 02/07/24 02/08/24 02/08/24 Range/Units 22:59 06:50 06:50 MCV 100.4 H (80.0-100.0) fL MCHC (31.0-37.0) g/dL Lymphocytes # (1.0-4.8) k/uL APTT 80.5 H 52.1 H (22.0-30.0) sec Troponin I (0.000-0.034) ng/mL Assessment and Plan Assessment: Acute congestive heart failure, not clear whether this is systolic or diastolic, echocardiogram is pending. Bilateral pleural effusions right more so than left, secondary to above Benign essential hypertension History of degenerative joint disease and multiple back surgeries History of nephrolithiasis History of TIAs History of GERD without esophagitis History of chronic kidney disease, baseline creatinine in 2021 is 1.7 Plan: The patient was seen and evaluated Imaging, labs and medications reviewed No plans for thoracentesis at this time Continue with IV diuretics Remains on a heparin drip Titrate down the FiO2 as tolerated We will continue to follow I have personally seen and examined the patient, performed the documentation and the assessment and plan as written. Number of minutes spent on the visit: 10.
--- NOTE | 2024-02-08 13:45 | P.PN ---
Subjective Progress Note Date: 02/08/24 Interval History: This is a 88-year-old male patient with past medical history significant for coronary artery disease, CHF, history of CVA, history of CKD, multiple back surgery, hypertension, hyperlipidemia who presented to ER for increasing shortness of breath weakness, fatigue, for the last few days. Patient reported that shortness of breath was getting worse when he lays down, also noted productive cough with clear sputum. Patient was told by his PCP that his x-ray showed evidence of fluid on the lungs, patient was brought to the ED ER. Patient denied any fever or chills. Patient denied any sore throat, chest pain, palpitation, nausea vomiting diarrhea constipation abdominal pain dysuria u rgency frequency. at bedside. Chest x-ray showed CHF, bilateral pleural effusion WBC 6.1, hemoglobin 13.7, BUN 30, creatinine 1.63, proBNP more than 25,000 Troponin 0.027. 02/08/2024--- patient feeling better today, resting comfortably in bed. Shortness of breath is improving, also reported swelling in the legs and hands. Blood pressure is elevated. Coreg added by cardiology. Currently on heparin drip, cardiology recommended to continue 48 hours, remains on IV diuresis, echocardiogram is pending. Pulmonary following, ultrasound of the chest revealed 6 cm pocket on the right and 4.8 cm pocket on the left. No plan for thoracentesis per pulmonary. Achieving good diuresis with IV diuretics. Assessment and plan: Acute on chronic CHFsystolic versus diastolic Bilateral pleural effusion: R>L Elevated troponin: Hypertension Hyperlipidemia History of CVA: CKD with baseline creatinine 1.7 History of CAD/CABG and redo CABG: Plan: Monitor daily weight and I&O's, cardiac diet IV diuresis Monitor renal function Monitor troponin Nitro-Bid, heparin drip, aspirin, statin. Coreg Holding losartan, monitor renal function Echocardiogram pending Cardiology consulted Pulmonary consulted DVT prophylaxis: Anticoagulated REVIEW OF SYSTEMS: CONSTITUTIONAL: Complains of fatigue. HEENT: No recent visual problems or hearing problems. Denied any sore throat. CARDIOVASCULAR: No chest pain, orthopnea, PND, no palpitations, no syncope. PULMONARY: Shortness of breath, cough GASTROINTESTINAL: No diarrhea, no nausea, no vomiting, no abdominal pain. NEUROLOGICAL: No headaches, no weakness, no numbness. HEMATOLOGICAL: Denies any bleeding or petechiae. GENITOURINARY: Denies any burning micturition, frequency, or urgency. MUSCULOSKELETAL/RHEUMATOLOGICAL: Denies any joint pain, swelling, or any muscle pain. ENDOCRINE: Denies any polyuria or polydipsia. The rest of the 14-point review of systems is negative. PHYSICAL EXAMINATION: GENERAL: The patient is A&O x3, NAD HEENT: EOMI, Sclerae anicteric, Moist Mucous membranes Neck: Supple, Non tender, No JVD PULMONARY: Decreased breath sound bilaterally, bilateral crackles. CARDIOVASCULAR: S1, S2 present. No murmurs, rubs, or gallops. ABDOMEN: Soft, nontender, nondistended, normoactive bowel sounds. No guarding or rebound tenderness. MUSCULOSKELETAL: No edema, No cyanosis. No clubbing. Normal ROM. Intact peripheral pulses. EXTREMITIES: No cyanosis, clubbing, or pedal edema. NEUROLOGICAL: CN 2-12 grossly intact. No FND Dictation was produced using [email or web address] dictation software. please excuse any grammatical, word or spelling errors. Objective - Vital Signs Vital signs: Vital Signs Temp 97.5 F L 02/08/24 09:56 Pulse 68 02/08/24 13:14 Resp 18 02/08/24 13:14 BP 104/54 02/08/24 13:14 Pulse Ox 97 02/08/24 13:14 FiO2 40 02/07/24 11:18 Intake & Output 02/07/24 02/08/24 02/08/24 18:59 06:59 18:59 Intake Total 47.533 Output Total 1100 550 450 Balance -1100 -502.467 -450 Intake: Intake, IV Titration 47.533 Amount Heparin Sod,Pork in 0.45% 47.533 NaCl 25,000 unit In 0.45 % NaCl 1 250ml.bag @ 12 UNITS/KG/HR 7.294 mls/hr IV .Q24H [facility] Rx#: [id number] Output: Urine 1100 550 450 - Labs CBC & Chem 7: 02/08/24 06:50 02/06/24 21:32 Labs: Abnormal Lab Results - Last 24 Hours (Table) 02/07/24 02/07/24 02/07/24 Range/Units 14:13 17:33 17:33 MCV 101.1 H (80.0-100.0) fL MCHC 30.9 L (31.0-37.0) g/dL Lymphocytes # 0.8 L (1.0-4.8) k/uL APTT (22.0-30.0) sec Troponin I 0.160 H* 0.146 H* (0.000-0.034) ng/mL 02/07/24 02/08/24 02/08/24 Range/Units 22:59 06:50 06:50 MCV 100.4 H (80.0-100.0) fL MCHC (31.0-37.0) g/dL Lymphocytes # (1.0-4.8) k/uL APTT 80.5 H 52.1 H (22.0-30.0) sec Troponin I (0.000-0.034) ng/mL
[2024-02-08] MEDS: carvediloL 3.125 MG TAB PO SCH (17:18)
[2024-02-09 08:23] LABS: Basophils % (A) 1 %; Eosinophils # (A) 0.1 k/uL (0-0.7); Eosinophils % (A) 1 %; HCT 45.4 % (39.0-53.0); HGB 14.3 gm/dL (13.0-17.5); Lymphocytes # (A) 0.9 k/uL (1.0-4.8); Lymphocytes % (A) 13 %; MCH 31.2 pg (25.0-35.0); MCHC 31.5 g/dL (31.0-37.0); Mean Platelet Volume 8.1; Monocytes # (A) 0.5 k/uL (0-1.0); Monocytes % (A) 7 %; Neutrophils # (A) 5.1 k/uL (1.3-7.7); Neutrophils % (A) 77 %; Platelet Count 207 k/uL (150-450); RBC 4.59 m/uL (4.30-5.90); RDW 13.9 % (11.5-15.5); WBC 6.6 k/uL (3.8-10.6)
[2024-02-09 08:57] LABS: African American GFR (CKD) 32 (>60 ml/min/1.73 sqM); Anion Gap 11 mmol/L; Blood Urea Nitrogen 44 mg/dL (9-20); Calcium 9.2 mg/dL (8.4-10.2); Carbon Dioxide 23 mmol/L (22-30); Chloride 103 mmol/L (98-107); Glucose 120 mg/dL (74-99); Magnesium 1.6 mg/dL (1.6-2.3); Non-African American GFR(CKD) 28 (>60 ml/min/1.73 sqM); Potassium 4.2 mmol/L (3.5-5.1); Sodium 137 mmol/L (137-145)
[2024-02-09 10:48] LABS: Glucose,Whole Blood 147 mg/dL (70-110)
--- NOTE | 2024-02-09 11:37 | CT ---
EXAMINATION TYPE: CODE STROKE: CT brain wo contr CT DLP: 1180.2 mGycm, Automated exposure control for dose reduction was used. DATE OF EXAM: 02/09/2024 11:28 AM COMPARISON: 05/15/2019. CLINICAL INDICATION: Male, 88 years old with history of code stroke, CODE STROke TECHNIQUE: Brain: Axial CT images of the brain were obtained with coronal and sagittal reformats created and rev iewed. Contrast used: None. Oral contrast used: None. FINDINGS: Brain: Extra-axial spaces: No abnormal extra-axial fluid collections. Ventricular system: Dilatation in proportion to cerebral atrophy. Cerebral parenchyma: Cerebral atrophy. No acute intraparenchymal hemorrhage or mass effect. The warren -white junction is well differentiated. Scattered hypoattenuating areas are seen within the white mat ter. Cerebellum: Unremarkable. Mass effect: No evidence of midline shift. Intracranial vasculature: Atherosclerotic calcifications of the intracranial vessels. Soft tissues: Normal. Calvarium/osseous structures: No depressed skull fracture. Paranasal sinuses and mastoid air cells: Mild scattered paranasal sinus disease. Visualized orbits: Orbital contents are intact. IMPRESSION: 1. No acute intracranial process. 2. Nonspecific white matter changes, likely secondary to chronic small vessel ischemic disease. [facility], , 02/09/2024 11:34 AM
--- NOTE | 2024-02-09 12:06 | CT ---
EXAMINATION TYPE: CODE STROKE: CTA head neck DATE OF EXAM: 02/09/2024 COMPARISON: Noncontrast CT brain same day HISTORY: 88-year-old male code stroke TECHNIQUE: Contiguous axial scanning of the head and neck performed with IV Contrast, patient injecte d with 65 mL of Isovue 370. Coronal/sagittal reconstructions performed. 3-D reconstructions generated on a dedicated independent workstation. CT DLP: 401 mGycm Automated exposure control for dose reduction was used. FINDINGS: Neck: Partially visualized moderate to large right pleural effusion. Trace left pleural effusion. Correlate as to etiology. There is mildly enlarged caliber main right and left pulmonary arteries up to 2.6 cm which may reflect underlying pulmonary arterial hypertension. Calcified granuloma left upper lobe. Post-CABG changes. Mild to moderate atherosclerotic arch calcifications. Bovine configuration to the aortic arch. The left vertebral artery is slightly more dominant but there is severe atherosclerotic calcification of the origin of the right vertebral artery. There is loss of enhancement of the right vertebral art kayla at the V3 segment. Left vertebral artery otherwise patent. Moderate atherosclerotic calcification and plaque at the bilateral carotid bifurcations. The right common carotid artery is patent. Changes result in a mild, 40% proximal right ICA stenosis. Remainder of the right ICA is patent. The left common carotid artery shows moderate, 60% stenosis distally just prior to and at the bifurca tion. Otherwise, the left ICA is patent. NASCET criteria visualized. Head: Nonenhancement of the V4 segment right vertebral artery. The left vertebral artery and basilar arteri es as well as the remainder of the posterior circulation are patent. Scattered atherosclerotic calcifications throughout the carotid siphons with segmental mild narrowing along the supraclinoid portions. Anatomic variation with hypoplastic A1 segment right anterior cerebral artery. Remainder of the anter ior circulation is patent. No aneurysmal change is seen. IMPRESSION: NECK: 1. Moderate atherosclerotic changes resulting in a moderate, 60% stenosis of the distal left CCA just prior to and after the carotid bifurcation. 2. Mild, 40% proximal right ICA stenosis. 3. Severe stenosis at the origin of the right vertebral artery. Right vertebral artery enhancement is lost at the level of the V3 segment likely due to the high-grade proximal stenosis. 4. Note moderate to large right and trace left pleural effusions. Correlate as to etiology. Head: 5. Atherosclerotic calcifications in the carotid siphons with mild stenosis along the supraclinoid IC As on both sides. 6. Nonvisualization of the right vertebral artery likely due to the high-grade stenosis at its origin . 7. Otherwise, no large vessel intracranial arterial occlusion, significant stenosis, or aneurysmal ch silvano is seen. [facility], Workstation: [id number], 02/09/2024 12:03 PM
[2024-02-09] MEDS: amLODIPine 5 MG TAB PO SCH (12:20)
[2024-02-09] MEDS: SODIUM CHLORIDE 0.9% 1,000 ML IV SCH (12:20)
[2024-02-09 12:28] VITALS: BMI 14.1
--- NOTE | 2024-02-09 12:45 | P.PN ---
Subjective Progress Note Date: 02/09/24 Principal diagnosis: Shortness of breath. This is an 88-year-old white male with history of hypertension, coronary artery disease, multiple back surgeries, dyslipidemia, patient normally sees Dr. Mejia for his cardiac issues. Presented to ER with few days history of increased shortness of breath, weakness, fatigue, shortness of breath is worse when he lays down. Patient was told by his primary care physician that his chest x-ray in the office showed evidence of fluid on the lungs. Hence patient was brought in here today, indeed his chest x-ray is consistent with congestive heart failure and he does have a small to moderate right-sided pleural effusion, hence this consult was initiated. WBC count is 6.1 hemoglobin 13.7 basic metabolic profile is normal BUN is 30 creatinine 1.63, BNP level is over 25,000. Troponin 0.027. Chest x-ray showed cardiomegaly with bilateral pleural effusions right more so than left, patient is on 2 L nasal cannula, O2 saturation 100%. Does not seem to be in distress. The patient is seen today February 08, 2024 in follow-up in the emergency department. He is currently sitting up on a stretcher. Awake and alert in no acute distress. Maintaining O2 saturations in the 90s on 5 L high flow nasal cannula. Ultrasound of the chest revealed a 6 cm pocket on the right and a 4.8 cm pocket on the left. No plans for thoracentesis. He remains on IV diuretics. Currently in a -1.6 L balance. He did have a troponin leak and is currently on a heparin drip. Progress note dated February 09, 2024. 88-year-old male seen today in room 365. The patient was initially seen for a congestive heart failure exacerbation. The patient is currently on room air, and, is receiving IV heparin. The patient's was in the room, and was concerned, because the patient was not speaking, and seem to be staying in a strange way. In addition, she thought that the right side of his face, was droopy compared to the left side. The patient does have a previous history of TIA. A code stroke was called. Current laboratory data includes a white count of 6.6, hemoglobin 14.3, hematocrit 45.4, and a platelet count of 207,000. Sodium 137, potassium 4.2, chlorides 103, CO2 23, BUN 44, creatinine 2.05. Glucose is 147. Magnesium 1.6. Calcium 9.2. Objective - Vital Signs Vital signs: Vital Signs Temp 97.5 F L 02/09/24 08:00 Pulse 61 02/09/24 08:00 Resp 18 02/09/24 08:00 BP 173/76 02/09/24 08:00 Pulse Ox 95 02/09/24 08:00 FiO2 40 02/07/24 11:18 Intake & Output 02/08/24 02/09/24 02/09/24 18:59 06:59 18:59 Intake Total 20 40 210.652 Output Total 450 1150 Balance -430 -1110 210.652 Weight 60.781 kg 41 kg 41 kg Intake: IV 20 40 Invasive Line 1 10 20 Invasive Line 2 10 20 Intake, IV Titration 210.652 Amount Heparin Sod,Pork in 0.45% 210.652 NaCl 25,000 unit In 0.45 % NaCl 1 250ml.bag @ 12 UNITS/KG/HR 7.294 mls/hr IV [facility] Rx#: [id number] Output: Urine 450 1150 Other: Voiding Method External Catheter External Catheter External Catheter # Bowel Movements 1 - Exam No acute distress. Blank stare, nonverbal. Currently on room air. HEENT examination is grossly unremarkable. Mucous membranes are moist. No oral lesions. Neck supple. Full range of motion. No adenopathy thyromegaly or neck vein distention. Cardiovascular examination reveals regular rhythm rate. S1-S2 normal. No S3 or S4. No discernible murmur noted. Heart sounds are distant. Heart rate 61 bpm. Lungs reveal scattered minimal crackles. Breath sounds equal bilaterally. No rhonchi or wheezes. Room air saturation 95%. Abdomen soft bowel sounds are heard. No masses or tenderness. Extremities are intact. No cyanosis clubbing or edema. Skin is without rash or lesion. Neurologic examination is difficult to assess. - Labs CBC & Chem 7: 02/09/24 08:05 02/09/24 08:05 Labs: Abnormal Lab Results - Last 24 Hours (Table) 02/09/24 02/09/24 02/09/24 Range/Units 08:05 08:05 08:05 Lymphocytes # 0.9 L (1.0-4.8) k/uL APTT 43.4 H (22.0-30.0) sec BUN 44 H (9-20) mg/dL Creatinine 2.05 H (0.66-1.25) mg/dL Glucose 120 H (74-99) mg/dL POC Glucose (mg/dL) (70-110) mg/dL 02/09/24 Range/Units 10:46 Lymphocytes # (1.0-4.8) k/uL APTT (22.0-30.0) sec BUN (9-20) mg/dL Creatinine (0.66-1.25) mg/dL Glucose (74-99) mg/dL POC Glucose (mg/dL) 147 H (70-110) mg/dL Assessment and Plan Assessment: Acute congestive heart failure, not clear whether this is systolic or diastolic. Rule out acute CVA. Bilateral pleural effusions right more so than left. Benign essential hypertension. History of degenerative joint disease and multiple back surgeries. History of nephrolithiasis. History of TIAs. History of GERD without esophagitis. History of chronic kidney disease. Plan: Plan dated February 09, 2024. A code stroke will be called on this patient. The patient will likely have a CT scan of the brain, as well as angiography CT, to evaluate blood vessels. Labs, x-rays, medications are reviewed. The patient's chest, reveals minimal basilar crackles. The room air saturation is 95%. The patient is not having any respiratory difficulty or distress. Time with Patient: Less than 30
[2024-02-09 12:55] LABS: Appearance,Urine Clear (Clear); Bilirubin,Urine Negative (Negative); Blood,Urine Trace (Negative); Color,Urine Colorless; Glucose,Urine (UA) Negative (Negative); Hyaline Casts,Urine 2 /lpf (0-2); Ketones,Urine Negative (Negative); Leukocyte Esterase,Urine Negative (Negative); Mucus,Urine Rare /hpf; Nitrite,Urine Negative (Negative); PH, Urine 6.5 (5.0-8.0); Protein,Urine Trace (Negative); RBC,Urine 1 /hpf (0-5); Specific Gravity,Urine 1.016 (1.001-1.035); Urobilinogen,Urine <2.0 mg/dL (<2.0); WBC,Urine 1 /hpf (0-5)
--- NOTE | 2024-02-09 13:35 | P.PN ---
Subjective Progress Note Date: 02/09/24 This is a 88-year-old male patient with past medical history significant for coronary artery disease, CHF, history of CVA, history of CKD, multiple back surgery, hypertension, hyperlipidemia who presented to ER for increasing shortness of breath weakness, fatigue, for the last few days. Patient reported that shortness of breath was getting worse when he lays down, also noted productive cough with clear sputum. Patient was told by his PCP that his x-ray showed evidence of fluid on the lungs, patient was brought to the ED ER. Patient denied any fever or chills. Patient denied any sore throat, chest pain, palpitation, nausea vomiting diarrhea constipation abdominal pain dysuria urgency frequency. at bedside. Chest x-ray showed CHF, bilateral pleural effusion WBC 6.1, hemoglobin 13.7, BUN 30, creatinine 1.63, proBNP more than 25,000 Troponin 0.027. 02/08/2024--- patient feeling better today, resting comfortably in bed. Shortness of breath is improving, also reported swelling in the legs and hands. Blood pressure is elevated. Coreg added by cardiology. Currently on heparin drip, cardiology recommended to continue 48 hours, remains on IV diuresis, echocardiogram is pending. Pulmonary following, ultrasound of the chest revealed 6 cm pocket on the right and 4.8 cm pocket on the left. No plan for thoracentesis per pulmonary. Achieving good diuresis with IV diuretics. 02/08. Patient seen and examined. WBC 6.6, hemoglobin 14.3, sodium 137, potassium 4.2, BUN 44, creatinine 2.05. Code stroke was called this morning for altered mental status. Patient was lethargic, not very communicative. CT head and CTA head and neck were ordered REVIEW OF SYSTEMS: Review of system cannot be obtained as patient is confused PHYSICAL EXAMINATION: GENERAL: The patient is alert x 0, chronically ill looking HEENT: Pupils are round and equally reacting to light. EOMI. No scleral icterus. No conjunctival pallor. Normocephalic, atraumatic. No pharyngeal erythema. No thyromegaly. CARDIOVASCULAR: S1 and S2 present. No murmurs, rubs, or gallops. PULMONARY: Coarse breath sounds bilaterally, no wheezing or crackles. ABDOMEN: Soft, nontender, nondistended, normoactive bowel sounds. No palpable organomegaly. MUSCULOSKELETAL: No joint swelling or deformity. EXTREMITIES: No cyanosis, clubbing, or pedal edema. NEUROLOGICAL: Moving all extremities SKIN: No rashes. Assessment and plan Acute on chronic CHFsystolic versus diastolic Bilateral pleural effusion: R>L Elevated troponin: Hypertension Hyperlipidemia History of CVA: CKD with baseline creatinine 1.7 History of CAD/CABG and redo CABG: Monitor vital signs Monitor CBC Monitor CMP Continue telemetry monitoring Encourage use of incentive spirometer Strict I's and O's, daily weights Continue IV diuresis Continue aspirin, statin, Coreg Stat CTA head and neck and CT head were ordered Neurology consulted Cardiology following Pulmonology following Discussed with family, they think patient has declined a lot over the last 2 years, wants hospice referral Labs and medication were reviewed.. Continue same treatment. Continue with symptomatic treatment. Resume home medication. Monitor labs and vitals. DVT and GI prophylaxis. Further recommendations as per clinical course of the patient Dictation was produced using [employer] dictation software. please excuse any grammatical, word or spelling errors. Objective - Vital Signs Vital signs: Vital Signs Temp 97.9 F 02/08/24 20:00 Pulse 71 02/09/24 08:00 Resp 12 02/09/24 08:00 BP 162/72 02/09/24 04:00 Pulse Ox 93 L 02/09/24 04:00 FiO2 40 02/07/24 11:18 Intake & Output 02/08/24 02/09/24 02/09/24 18:59 06:59 18:59 Intake Total 20 40 202.872 Output Total 450 1150 Balance -430 -1110 202.872 Weight 60.781 kg 41 kg Intake: IV 20 40 Invasive Line 1 10 20 Invasive Line 2 10 20 Intake, IV Titration 202.872 Amount Heparin Sod,Pork in 0.45% 202.872 NaCl 25,000 unit In 0.45 % NaCl 1 250ml.bag @ 12 UNITS/KG/HR 7.294 mls/hr IV .Q24H [facility] Rx#: [id number] Output: Urine 450 1150 Other: Voiding Method External Catheter External Catheter External Catheter # Bowel Movements 1 - Labs CBC & Chem 7: 02/09/24 08:05 02/09/24 08:05 Labs: Abnormal Lab Results - Last 24 Hours (Table) 02/09/24 02/09/24 02/09/24 Range/Units 08:05 08:05 08:05 Lymphocytes # 0.9 L (1.0-4.8) k/uL APTT 43.4 H (22.0-30.0) sec BUN 44 H (9-20) mg/dL Creatinine 2.05 H (0.66-1.25) mg/dL Glucose 120 H (74-99) mg/dL
--- NOTE | 2024-02-09 14:13 | P.PN ---
Subjective HISTORY OF PRESENT ILLNESS: The patient is a pleasant 88-year-old gentleman with a past medical history significant for coronary artery disease with prior CABG and redo CABG with unknown details at this point as well as history of hypertension and dyslipidemia and history of TIA. The patient presented to the hospital complaining of progressive exertional dyspnea for the last several days associated with bilateral lower extremities edema and associated with symptoms of chest tightness. No other cardiovascular symptoms of dizziness or lightness or any feeling of heart racing or furthering or presyncope or syncope. He never diagnosed with congestive heart failure before. Further investigation performed including an EKG and that showed sinus mechanism with diffuse nonspecific ST and T wave abnormalities. NT proBNP came to be a bit of 25,000. The chest x-ray showed finding consistent with pulmonary vascular congestions and also bilateral pleural effusion worse on the left than the right and currently patient is in process of having an ultrasound of the chest. An echocardiogram was ordered as well and in process to be done. His blood work indicating renal failure which appears to be mild but there is no prior kidney function to compare. He was given 1 dose of Lasix with significant improvement in the symptoms. The physic al examination is remarkable for elevated blood pressure consistent with stage II hypertension with regular rate and rhythm and systolic murmur at the right and left upper sternal border and apical area and diminished breathing sounds bilaterally and mild bilateral lower extremities edema February 08, 2024 The patient was seen this morning with he is feeling better. The shortness of breath has improved as well as the lower extremities edema. The pressure is elevated. I am going to add carvedilol to the current medical regimen. Beside that continue heparin for a total of 48 hours and continue IV diuretics. The echo still pending. The physical examination is remarkable for regular rhythm with a systolic murmur at the apical area and diminished breathing sounds bilaterally and bilateral lower extremities edema. Overall he is still hypervolemic. 02/09/2024 Patient examined this morning at the bedside. Patient was noted to not be communicative and code stroke was called this morning. CT is currently pending. Patient remains on IV heparin and IV diuretics. Vital signs are stable. Blood pressure 149/61. Previous readings [id number]. PHYSICAL EXAM: VITAL SIGNS: Reviewed. GENERAL: Well-developed in no acute distress. NECK: Supple. No JVD or thyromegaly LUNGS: Respirations even and unlabored. Lungs essentially clear to auscultation bilaterally. HEART: Regular rate and rhythm. S1 and S2 heard. EXTREMITIES: Normal range of motion. No clubbing or cyanosis. Peripheral p ulses intact. No lower extremity edema ASSESSMENT: Shortness of breath Bilateral pleural effusions Acute on chronic heart failure with mildly reduced EF, 45-50 in 2015, repeat echo pending Altered mental status, rule out acute CVA, CT pending Coronary artery disease with previous CABG and redo CABG Chronic kidney disease History of multiple TIAs Hypertension Hyperlipidemia PLAN: 2D echo ordered. Await results. Discontinue IV Lasix. Begin oral Lasix 40 mg daily Discontinue IV heparin. Begin subcu heparin. Continue additional current cardiac medications Add amlodipine 5 mg daily for optimal blood pressure control Neurology has been consulted secondary to code stroke. CT pending Continue telemetry monitoring to assess for any arrhythmias Further recommendations pending patient course Patient to follow-up postdischarge with Dr. Mejia Nurse practitioner note has been reviewed by physician. Signing provider agrees with the documented findings, assessment, and plan of care documented by [employer] as a scribe. Objective - Vital Signs Vital signs: Vital Signs Temp 97.5 F L 02/09/24 08:00 Pulse 59 L 02/09/24 12:00 Resp 16 02/09/24 12:00 BP 149/61 02/09/24 12:00 Pulse Ox 98 02/09/24 12:00 FiO2 40 02/07/24 11:18 Intake & Output 02/08/24 02/09/24 02/09/24 18:59 06:59 18:59 Intake Total 20 40 330.652 Output Total 450 1150 Balance -430 -1110 330.652 Weight 60.781 kg 41 kg 41 kg Intake: IV 20 40 Invasive Line 1 10 20 Invasive Line 2 10 20 Intake, IV Titration 210.652 Amount Heparin Sod,Pork in 0.45% 210.652 NaCl 25,000 unit In 0.45 % NaCl 1 250ml.bag @ 12 UNITS/KG/HR 7.294 mls/hr IV .Q24H [facility] Rx#: [id number] Oral 120 Output: Urine 450 1150 Other: Voiding Method External Catheter External Catheter External Catheter # Bowel Movements 1 - Labs CBC & Chem 7: 02/09/24 08:05 02/09/24 08:05 Labs: Abnormal Lab Results - Last 24 Hours (Table) 02/09/24 02/09/24 02/09/24 Range/Units 08:05 08:05 08:05 Lymphocytes # 0.9 L (1.0-4.8) k/uL APTT 43.4 H (22.0-30.0) sec BUN 44 H (9-20) mg/dL Creatinine 2.05 H (0.66-1.25) mg/dL Glucose 120 H (74-99) mg/dL POC Glucose (mg/dL) (70-110) mg/dL Urine Protein (Negative) Urine Blood (Negative) Urine Mucus (None) /hpf 02/09/24 02/09/24 Range/Units 10:46 12:34 Lymphocytes # (1.0-4.8) k/uL APTT (22.0-30.0) sec BUN (9-20) mg/dL Creatinine (0.66-1.25) mg/dL Glucose (74-99) mg/dL POC Glucose (mg/dL) 147 H (70-110) mg/dL Urine Protein Trace H (Negative) Urine Blood Trace H (Negative) Urine Mucus Rare H (None) /hpf
[2024-02-09] MEDS ORDERED: LORazepam 2 MG/ML INJ IV PRN (16:20)
--- NOTE | 2024-02-09 17:33 | CA ---
Transthoracic Echo Report Name: Chito Triana Age: 88 Gender: M : 1935 Exam Date: 02/09/2024 09:10 Exam Location: [facility] Ht (in): 67 Wt (lb): 134 Ordering Physician: Ezekeil Appiah MD ([id number]) Attending/Referring Phys: Home [facility] Care Respiratory Therapist Laila Shook, RUBÉN Procedure CPT: Indications: chf Cardiac Hx: Unable to finish Echo, pt. was uncooperative Technical Quality: Good Contrast 1: Total Dose (mL): Contrast 2: Total Dose (mL): MEASUREMENTS (Male / Female) Normal Values 2D ECHO LV Diastolic Diameter PLAX 3.2 cm 4.2 - 5.9 / 3.9 - 5.3 cm LV Systolic Diameter PLAX 5.4 cm IVS Diastolic Thickness 4.1 cm 0.6 - 1.0 / 0.6 - 0.9 cm LVPW Diastolic Thickness 1.1 cm 0.6 - 1.0 / 0.6 - 0.9 cm LV Relative Wall Thickness 1.6 RV Internal Dim ED PLAX 1.7 cm LVOT Diameter 2.0 cm M-MODE Aortic Root Diameter MM 3.2 cm LA Systolic Diameter MM 3.8 cm LA Ao Ratio MM 1.2 AV Cusp Separation MM 1.2 cm DOPPLER TR Peak Velocity 232.2 cm/s TR Peak Gradient 21.6 mmHg FINDINGS Left Ventricle Left ventricular ejection fraction is estimated at 15-20 %. Mild concentric left ventricular hypertrophy. Severely reduced global left ventricular systolic function. Right Ventricle Right ventricle not well visualized. Right ventricular systolic pressure within normal limits. Right Atrium Right atrium not well visualized. Left Atrium Left atrium not well visualized. Mitral Valve Limited views obtained Aortic Valve Aortic valve not well visualized. Mild aortic regurgitation. Tricuspid Valve Structurally normal tricuspid valve. Mild tricuspid regurgitation. Pulmonic Valve Structurally normal pulmonic valve. Trace pulmonic regurgitation. No pulmonic stenosis. Pericardium No pericardial or pleural effusion. Aorta Normal size aortic root and proximal ascending aorta. CONCLUSIONS Diagnosis: Congestive heart failure, acute exacerbation Severe cardiomyopathy ejection fraction less than 20% consistent with history of congestive heart failure Previewed by: Dr. Domenic Monge MD (Electronically Signed) Final Date: 09 February 2024 17:33
--- NOTE | 2024-02-09 18:37 | P.CNNES ---
History of Present Illness Consult date: 02/09/24 Requesting physician: Víctor Carrillo Reason for Consult: code stroke History of Present Illness: Patient is a 88-year-old male came to the hospital on 02/06/2024 at 7:33 PM for shortness of breath, difficulty breathing that has been ongoing for last few days, getting worse. Patient does have history of dementia. Patient's blood test on arrival revealed normal CBC with elevated MCV 100.9. PT PTT normal, electrolytes are normal. BUN 30 creatinine 1.63. Troponin was normal but has slightly elevated 0.160. Patient was started on IV heparin. UA shows no infection. Patient's EKG showed sinus rhythm with occasional ventricular premature complexes. Chest x-ray showed cardiomegaly with bilateral pleural effusion, right greater than left with pulmonary edema. Patchy airspace disease. Postsurgical changes. This morning patient was noted to be not speaking. However the nurse reported that this has been going on since last shift, perhaps last night. Stroke code was activated at around 10:45 PM. His initial NIH stroke scale at 10:51 AM was 10, and the repeat 1 at 11 AM was 2. Patient had a CT scan of head done, which revealed no acute process. CTA report mentioned. Nursing staff discussed case with Dr. Graves, and patient was not a candidate for tPA, as patient was already on heparin with therapeutic PTT. No large vessel occlusion was noted. Neurology was consulted. Family members were present and seen at around 6:30 PM. They mentioned that patient does have at least moderate dementia. He is oriented mostly to the self. He may know the season. He lives at his home, and uses a cane for ambulation. Family has noticed that he has been declining for last few days. He does have pleural effusion. Patient does take aspirin every day. Family has not noticed any focal weakness. He is just not talking. Patient also had severe CHF. Family have decided patient to go hospice. They have signed up already. Review of Systems ROS unobtainable: due to mental status Past Medical History Past Medical History: Chest Pain / Angina, CVA/TIA, GERD/Reflux, Hyperlipidemia, Hypertension, Myocardial Infarction ([place]), Osteoarthritis ([place]) Additional Past Medical History / Comment(s): kidney stone, TIA, HIATAL HERNIA, PALPATIONS, DDD Last Myocardial Infarction Date:: 1992 History of Any Multi-Drug Resistant Organisms: None Reported Past Surgical History: Adenoidectomy, Back Surgery, Coronary Bypass/CABG, Heart Catheterization, Hernia Repair, Tonsillectomy Additional Past Surgical History / Comment(s): LT carotid endarectomy, back surgery FUSION, SX FOR HIATAL HERNIA-PT STATED IT DID'NT WORK.X2 CABG 1982 AND 2008,HARRISON CATARACTS,REPAIR OF TORN RETINA, EGD, HARRISON INGUIANL HERNIA REPAIR, HARRISON CARPAL TUNNEL RELEASE,HARRISON ROTATOR CUFF REPAIR, CYSTOCOPY(HAD KIDNEY STONE) Past Anesthesia/Blood Transfusion Reactions: No Reported Reaction Past Psychological History: No Psychological Hx Reported Additional Psychological History / Comment(s): PT LIVES AT HOME WITH HIS , IS RETIRED,USED TO WORK COMPUTER/ELECTRONIC REPAIRMAN, NO SERVICE. PT INDEPENDANT BUT HAS STARTED TO USE A CANE WHEN UP. Smoking Status: Never smoker Past Alcohol Use History: None Reported Past Drug Use History: Marijuana - Past Family History Father Family Medical History: No Reported History Mother Family Medical History: No Reported History Medications and Allergies Home Medications Medication Instructions Recorded Confirmed Type Losartan Potassium 50 mg PO DAILY 02/05/19 02/07/24 History Allergies Allergy/AdvReac Type Severity Reaction Status Date / Time No Known Allergies Allergy Verified 02/07/24 09:44 Physical Examination - Vital Signs Vital Signs: Vital Signs Temp Pulse Pulse Resp BP BP Pulse Ox 02/09/24 08:00 97.5 F L 61 18 173/76 95 02/09/24 04:00 71 12 162/72 93 L 02/09/24 00:00 71 18 165/74 94 L 02/08/24 20:00 97.9 F 77 18 158/67 97 02/08/24 17:00 98.2 F 74 17 153/76 97 02/08/24 15:54 98.6 F 66 20 122/57 95 02/08/24 15:20 97 02/08/24 13:14 68 18 104/54 97 Intake and Output 02/08/24 02/09/24 02/09/24 22:59 06:59 14:59 Intake Total 40 20 202.872 Output Total 1150 Balance 40 -1130 202.872 Intake: IV 40 20 Invasive Line 1 20 10 Invasive Line 2 20 10 Intake, IV Titration 202.872 Amount Heparin Sod,Pork in 0.45% 202.872 NaCl 25,000 unit In 0.45 % NaCl 1 250ml.bag @ 12 UNITS/KG/HR 7.294 mls/hr IV .Q24H [facility] Rx#: [id number] Output: Urine 1150 Other: Voiding Method External Catheter External Catheter External Catheter # Bowel Movements 1 Weight 60.781 kg 41 kg On examination patient is an elderly male, appears very frail, sick. He is moderately encephalopathic. He keeps his eyes closed, although opens his eyes to calling his name. He did not speak. His pupils are equal, round and reacting. Patient did not cooperate for visual field testing. He did not cooperate for extraocular muscles testing. Patient holds his arms up, but rapidly brings it down equally. No obvious focal symptoms noted. He is moving all 4 extremities. His face is symmetric. No obvious droop. Rest of the examination cannot be assessed. Results - Laboratory Findings CBC and BMP: 02/09/24 08:05 02/09/24 08:05 Abnormal Lab Findings: Abnormal Labs 02/06/24 02/06/24 02/07/24 21:32 21:32 14:13 MCV 100.9 H MCHC Lymphocytes # APTT Chloride 110 H BUN 30 H Creatinine 1.63 H Glucose 110 H POC Glucose (mg/dL) Troponin I 0.160 H* Total Protein 6.2 L 02/07/24 02/07/24 02/07/24 17:33 17:33 22:59 MCV 101.1 H MCHC 30.9 L Lymphocytes # 0.8 L APTT 80.5 H Chloride BUN Creatinine Glucose POC Glucose (mg/dL) Troponin I 0.146 H* Total Protein 02/08/24 02/08/24 02/09/24 06:50 06:50 08:05 MCV 100.4 H MCHC Lymphocytes # 0.9 L APTT 52.1 H Chloride BUN Creatinine Glucose POC Glucose (mg/dL) Troponin I Total Protein 02/09/24 02/09/24 02/09/24 08:05 08:05 10:46 MCV MCHC Lymphocytes # APTT 43.4 H Chloride BUN 44 H Creatinine 2.05 H Glucose 120 H POC Glucose (mg/dL) 147 H Troponin I Total Protein Assessment and Plan Assessment: * Altered mental status, with aphasia. Rule out acute CVA versus acute metabolic encephalopathy from reasons mentioned below. * Elevated cardiac enzymes * Multiple cerebro-vascular stenoses, as per CTA of head and neck. * Pleural effusion * History of multiple stroke/TIA. * Dementia, at least moderate degree. * Failure to thrive. Plan: CTA of head and neck was done, which revealed moderate atherosclerotic changes resulting in moderate, 60% stenosis of the distal left CCA just prior to and after the carotid bifurcation. Mild, 40% proximal right ICA stenosis. Severe stenosis at the origin of the right vertebral artery. Right vertebral artery en hancement is lost at the level of the V3 segment, likely due to high-grade proximal stenosis. Moderate to large right and trace left pleural effusion. There is mild stenosis along the supraclinoid ICA on both sides. Nonvisualization of the right vertebral artery likely due to high-grade stenosis at the origin. Otherwise no large vessel intracranial occlusion, significant stenosis or aneurysm. CT head showed no acute process. No bleed. Nonspecific white matter changes. 2D echo revealed CHF with acute exacerbation. Severe cardiomyopathy with EF less than 20%. Left or right atrium are not well-visualized. Continue aspirin, Lipitor 40 mg. Family have made decision for patient to be hospice. They have already signed it up. Decision appears appropriate. Other medical management as per IM and other specialties on board. Neurology will sign off. Please reconsult neurology if any concerns.
[2024-02-09] MEDS: HEPARIN SODIUM,PORCINE 5,000 UNIT/ML 1 ML VIAL SQ SCH (19:31)
[2024-02-09] MEDS: hydrALAZINE HCL 20 MG/ML 1 ML VIAL IVP STA (20:39)
[2024-02-10 04:29] VITALS: TEMP 98.9
[2024-02-10] MEDS: FUROSEMIDE 40 MG TAB PO SCH (08:17)
[2024-02-10 10:48] VITALS: RESP 18
--- NOTE | 2024-02-10 11:30 | P.PN ---
Subjective Progress Note Date: 02/10/24 Principal diagnosis: Shortness of breath. This is an 88-year-old white male with history of hypertension, coronary artery disease, multiple back surgeries, dyslipidemia, patient normally sees Dr. Mejia for his cardiac issues. Presented to ER with few days history of increased shortness of breath, weakness, fatigue, shortness of breath is worse when he lays down. Patient was told by his primary care physician that his chest x-ray in the office showed evidence of fluid on the lungs. Hence patient was brought in here today, indeed his chest x-ray is consistent with congestive heart failure and he does have a small to moderate right-sided pleural effusion, hence this consult was initiated. WBC count is 6.1 hemoglobin 13.7 basic metabolic profile is normal BUN is 30 creatinine 1.63, BNP level is over 25,000. Troponin 0.027. Chest x-ray showed cardiomegaly with bilateral pleural effusions right more so than left, patient is on 2 L nasal cannula, O2 saturation 100%. Does not seem to be in distress. The patient is seen today February 08, 2024 in follow-up in the emergency department. He is currently sitting up on a stretcher. Awake and alert in no acute distress. Maintaining O2 saturations in the 90s on 5 L high flow nasal cannula. Ultrasound of the chest revealed a 6 cm pocket on the right and a 4.8 cm pocket on the left. No plans for thoracentesis. He remains on IV diuretics. Currently in a -1.6 L balance. He did have a troponin leak and is currently on a heparin drip. Progress note dated February 09, 2024. 88-year-old male seen today in room 365. The patient was initially seen for a congestive heart failure exacerbation. The patient is currently on room air, and, is receiving IV heparin. The patient's was in the room, and was concerned, because the patient was not speaking, and seem to be staying in a strange way. In addition, she thought that the right side of his face, was droopy compared to the left side. The patient does have a previous history of TIA. A code stroke was called. Current laboratory data includes a white count of 6.6, hemoglobin 14.3, hematocrit 45.4, and a platelet count of 207,000. Sodium 137, potassium 4.2, chlorides 103, CO2 23, BUN 44, creatinine 2.05. Glucose is 147. Magnesium 1.6. Calcium 9.2. Progress note dated February 10, 2024. 88-year-old male seen in room 365. The patient was admitted with a diagnosis of congestive heart failure. He is currently on room air. He is getting saline at 50 cc an hour. Yesterday, there is an acute mental status change, with some right facial droop, and aphasia. A code stroke was called, CT scan of the brain, and angiography CT, were negative. The patient is back to his normal self today. No new labs today. Objective - Vital Signs Vital signs: Vital Signs Temp 98.9 F 02/10/24 04:00 Pulse 69 02/10/24 08:00 Resp 18 02/10/24 08:00 BP 124/56 02/10/24 08:00 Pulse Ox 96 02/10/24 08:35 FiO2 40 02/07/24 11:18 Intake & Output 02/09/24 02/10/24 02/10/24 18:59 06:59 18:59 Intake Total 330.652 180 Output Total 600 400 Balance -269.348 -400 180 Weight 41 kg Intake: Intake, IV Titration 210.652 Amount Heparin Sod,Pork in 0.45% 210.652 NaCl 25,000 unit In 0.45 % NaCl 1 250ml.bag @ 12 UNITS/KG/HR 7.294 mls/hr IV .Q24H [facility] Rx#: [id number] Oral 120 180 Output: Urine 600 400 Other: Voiding Method External Catheter External Catheter External Catheter # Bowel Movements 2 1 - Exam No acute distress. Blank stare, nonverbal. Currently on room air. HEENT examination is grossly unremarkable. Mucous membranes are moist. No oral lesions. Neck supple. Full range of motion. No adenopathy thyromegaly or neck vein distention. Cardiovascular examination reveals regular rhythm rate. S1-S2 normal. No S3 or S4. No discernible murmur noted. Heart sounds are distant. Heart rate 69 bpm. Lungs reveal scattered minimal crackles. Breath sounds equal bilaterally. No rhonchi or wheezes. Room air saturation 95%. Abdomen soft bowel sounds are heard. No masses or tenderness. Extremities are intact. No cyanosis clubbing or edema. Skin is without rash or lesion. Neurologic examination is difficult to assess. - Labs CBC & Chem 7: 02/09/24 08:05 02/09/24 08:05 Labs: Abnormal Lab Results - Last 24 Hours (Table) 02/09/24 Range/Units 12:34 Urine Protein Trace H (Negative) Urine Blood Trace H (Negative) Urine Mucus Rare H (None) /hpf Assessment and Plan Assessment: Acute congestive heart failure, not clear whether this is systolic or diastolic. Rule out acute CVA, brain CT, and angiography CT, were both negative. Bilateral pleural effusions right more so than left. Benign essential hypertension. History of degenerative joint disease and multiple back surgeries. History of nephrolithiasis. History of TIAs. History of GERD without esophagitis. History of chronic kidney disease. Plan: Plan dated February 09, 2024. A code stroke will be called on this patient. The patient will likely have a CT scan of the brain, as well as angiography CT, to evaluate blood vessels. Labs, x-rays, medications are reviewed. The patient's chest, reveals minimal basilar crackles. The room air saturation is 95%. The patient is not having any respiratory difficulty or distress. Plan dated February 10, 2024. The patient had a brain CT, yesterday, that was negative. In addition, angiogr aphy CT, was also negative. The patient is currently on room air. He is getting saline at 50 cc an hour. He appears very weak, and frail, but is not having any shortness of breath. We will continue to follow. No new labs today. No additional recommendations are made. Prognosis is guarded. Time with Patient: Less than 30
--- NOTE | 2024-02-10 12:24 | P.DS ---
Providers Date of admission: 02/06/24 23:39 Expected date of discharge: 02/10/24 Attending physician: Jose Keating Consults: 02/06/24 23:29 Consult Physician Urgent Consulting Provider: Ezekiel Appiah Consult Reason/Comments: chf Do you want consulting provider notified?: Yes, Notify in am 02/07/24 11:32 Consult Physician Routine Consulting Provider: Lorena Richey Consult Reason/Comments: Respiratory failure, B/L Pleural effusion Do you want consulting provider notified?: Yes 02/09/24 11:03 Consult Physician Stat Consulting Provider: Meño Solis Consult Reason/Comments: code stroke Do you want consulting provider notified?: Yes Primary care physician: Ella Diallo Hospital Course: Discharge diagnoses; Acute on chronic CHFsystolic versus diastolic Acute metabolic encephalopathy Severe malnutrition Bilateral pleural effusion: R>L Elevated troponin: Hypertension Hyperlipidemia History of CVA: CKD with baseline creatinine 1.7 History of CAD/CABG and redo CABG: Hospital course; This is a 88-year-old male patient with past medical history significant for coronary artery disease, CHF, history of CVA, history of CKD, multiple back surgery, hypertension, hyperlipidemia who presented to ER for increasing shortness of breath weakness, fatigue, for the last few days. Patient reported that shortness of breath was getting worse when he lays down, also noted produc tive cough with clear sputum. Patient was told by his PCP that his x-ray showed evidence of fluid on the lungs, patient was brought to the ED ER. Patient denied any fever or chills. Patient denied any sore throat, chest pain, palpitation, nausea vomiting diarrhea constipation abdominal pain dysuria urgency frequency. at bedside. Chest x-ray showed CHF, bilateral pleural effusion WBC 6.1, hemoglobin 13.7, BUN 30, creatinine 1.63, proBNP more than 25,000 Troponin 0.027. 02/08/2024--- patient feeling better today, resting comfortably in bed. Shortness of breath is improving, also reported swelling in the legs and hands. Blood pressure is elevated. Coreg added by cardiology. Currently on heparin drip, cardiology recommended to continue 48 hours, remains on IV diuresis, echocardiogram is pending. Pulmonary following, ultrasound of the chest revealed 6 cm pocket on the right and 4.8 cm pocket on the left. No plan for thoracentesis per pulmonary. Achieving good diuresis with IV diuretics. 02/08. Patient seen and examined. WBC 6.6, hemoglobin 14.3, sodium 137, potassium 4.2, BUN 44, creatinine 2.05. Code stroke was called this morning for altered mental status. Patient was lethargic, not very communicative. CT head and CTA head and neck were ordered. 02/09. Patient seen and examined. CTA of head and neck was done, which revealed moderate atherosclerotic changes resulting in moderate, 60% stenosis of the distal left CCA just prior to and after the carotid bifurcation. Mild, 40% proximal right ICA stenosis. Severe stenosis at the origin of the right vertebral artery. Right vertebral artery enhancement is lost at the level of the V3 segment, likely due to high-grade proximal stenosis. Moderate to large right and trace left pleural effusion. There is mild stenosis along the supraclinoid ICA on both sides. Nonvisualization of the right vertebral artery likely due to high-grade stenosis at the origin. Otherwise no large vessel intracranial occlusion, significant stenosis or aneurysm.CT head showed no acute process. No bleed. Nonspecific white matter changes. Had a long discussion with family yesterday, patient family wanted to sign up for hospice, arrangements being made for discharge home with hospice. Discharge home with hospice PHYSICAL EXAMINATION: GENERAL: The patient is alert, chronically ill, cachectic, frail HEENT: Pupils are round and equally reacting to light. EOMI. No scleral icterus. No conjunctival pallor. Normocephalic, atraumatic. No pharyngeal erythema. No thyromegaly. CARDIOVASCULAR: S1 and S2 present. No murmurs, rubs, or gallops. PULMONARY: Coarse breath sound, no wheezing or crackles. ABDOMEN: Soft, nontender, nondistended, normoactive bowel sounds. No palpable organomegaly. MUSCULOSKELETAL: No joint swelling or deformity. EXTREMITIES: No cyanosis, clubbing, or pedal edema. NEUROLOGICAL: Gross neurological examination did not reveal any focal deficits. SKIN: No rashes. Dictation was produced using [employer] dictation software. please excuse any grammatical, word or spelling errors. Patient Condition at Discharge: Fair Plan - Discharge Summary Discharge Rx Participant: No New Discharge Prescriptions: New Aspirin 81 mg PO DAILY #30 tab Atorvastatin [Lipitor] 40 mg PO HS #30 tab carvediloL [Coreg] 3.125 mg PO BID-W/MEALS #60 tab Furosemide [Lasix] 40 mg PO DAILY #30 tab amLODIPine [Norvasc] 5 mg PO DAILY #30 tab Discontinued Losartan Potassium 50 mg PO DAILY Discharge Medication List Aspirin 81 mg PO DAILY #30 tab 02/10/24 [Rx] Atorvastatin [Lipitor] 40 mg PO HS #30 tab 02/10/24 [Rx] Furosemide [Lasix] 40 mg PO DAILY #30 tab 02/10/24 [Rx] amLODIPine [Norvasc] 5 mg PO DAILY #30 tab 02/10/24 [Rx] carvediloL [Coreg] 3.125 mg PO BID-W/MEALS #60 tab 02/10/24 [Rx] Follow up Appointment(s)/Referral(s): Ella Diallo DO [Primary Care Provider] - 1-2 days Discharge Disposition: HOME WITH HOSPICE
[2024-02-10 12:39] VITALS: BP 154/59; PULSE 105
--- NOTE | 2024-02-10 13:54 | P.PN ---
Subjective HISTORY OF PRESENT ILLNESS: The patient is a pleasant 88-year-old gentleman with a past medical history significant for coronary artery disease with prior CABG and redo CABG with unknown details at this point as well as history of hypertension and dyslipidemia and history of TIA. The patient presented to the hospital complaining of progressive exertional dyspnea for the last several days associated with bilateral lower extremities edema and associated with symptoms of chest tightness. No other cardiovascular symptoms of dizziness or lightness or any feeling of heart racing or furthering or presyncope or syncope. He never diagnosed with congestive heart failure before. Further investigation performed including an EKG and that showed sinus mechanism with diffuse nonspecific ST and T wave abnormalities. NT proBNP came to be a bit of 25,000. The chest x-ray showed finding consistent with pulmonary vascular congestions and also bilateral pleural effusion worse on the left than the right and currently patient is in process of having an ultrasound of the chest. An echocardiogram was ordered as well and in process to be done. His blood work indicating renal failure which appears to be mild but there is no prior kidney function to compare. He was given 1 dose of Lasix with significant improvement in the symptoms. The physic al examination is remarkable for elevated blood pressure consistent with stage II hypertension with regular rate and rhythm and systolic murmur at the right and left upper sternal border and apical area and diminished breathing sounds bilaterally and mild bilateral lower extremities edema February 08, 2024 The patient was seen this morning with he is feeling better. The shortness of breath has improved as well as the lower extremities edema. The pressure is elevated. I am going to add carvedilol to the current medical regimen. Beside that continue heparin for a total of 48 hours and continue IV diuretics. The echo still pending. The physical examination is remarkable for regular rhythm with a systolic murmur at the apical area and diminished breathing sounds bilaterally and bilateral lower extremities edema. Overall he is still hypervolemic. 02/09/2024 Patient examined this morning at the bedside. Patient was noted to not be communicative and code stroke was called this morning. CT is currently pending. Patient remains on IV heparin and IV diuretics. Vital signs are stable. Blood pressure 149/61. Previous readings [id number]. 02/10/2024 Patient examined this morning the bedside. Patient remains lethargic. CT of the brain negative for acute process. Echocardiogram completed revealing ejection fraction 15 to 20% with mild aortic regurgitation and mild tricuspid r egurgitation. Blood pressure slightly high at 154/59. PHYSICAL EXAM: VITAL SIGNS: Reviewed. GENERAL: Well-developed in no acute distress. NECK: Supple. No JVD or thyromegaly LUNGS: Respirations even and unlabored. Lungs essentially clear to auscultation bilaterally. HEART: Regular rate and rhythm. S1 and S2 heard. EXTREMITIES: Normal range of motion. No clubbing or cyanosis. Peripheral puls es intact. No lower extremity edema ASSESSMENT: Shortness of breath Bilateral pleural effusions Acute on chronic heart failure with reduced EF, 15 to 20% Altered mental status, rule out acute CVA, CT negative for CVA Coronary artery disease with previous CABG and redo CABG Chronic kidney disease History of multiple TIAs Hypertension Hyperlipidemia PLAN: Continue current cardiac medications Patient may benefit from cardiomyopathy regimen. However, patient is signing into hospice today and will not make any further medications changes We will sign off. Please reconsult if needed. Nurse practitioner note has been reviewed by physician. Signing provider agrees with the documented findings, assessment, and plan of care documented by MEDICAL OFFICE WORKER as a scribe. Objective - Vital Signs Vital signs: Vital Signs Temp 98.9 F 02/10/24 04:00 Pulse 105 H 02/10/24 12:00 Resp 18 02/10/24 12:00 BP 154/59 02/10/24 12:00 Pulse Ox 95 02/10/24 12:00 FiO2 40 02/07/24 11:18 Intake & Output 02/09/24 02/10/24 02/10/24 18:59 06:59 18:59 Intake Total 330.652 180 Output Total 600 400 Balance -269.348 -400 180 Weight 41 kg Intake: Intake, IV Titration 210.652 Amount Heparin Sod,Pork in 0.45% 210.652 NaCl 25,000 unit In 0.45 % NaCl 1 250ml.bag @ 12 UNITS/KG/HR 7.294 mls/hr IV .Q24H [facility] Rx#: [id number] Oral 120 180 Output: Urine 600 400 Other: Voiding Method External Catheter External Catheter External Catheter # Bowel Movements 2 1 - Labs CBC & Chem 7: 02/09/24 08:05 02/09/24 08:05
== END 2024-02-10 16:35 | disposition hospice, home (50) | DRG 291 ==
LOC: EC 19:33 → 3SCARD 23:39
PROVIDERS: ADMIT Hospitalist; ATTEND Hospitalist
DX: I13.0 Hypertensive heart and chronic kidney disease with heart failure and stage 1 through stage 4 chronic kidney disease, or unspecified chronic kidney disease (principal); E43 Unspecified severe protein-calorie malnutrition; G93.41 Metabolic encephalopathy; I50.23 Acute on chronic systolic (congestive) heart failure; R47.01 Aphasia; Z68.1 Body mass index [BMI] 19.9 or less, adult; N18.9 Chronic kidney disease, unspecified; R29.810 Facial weakness; R62.7 Adult failure to thrive; I25.10 Atherosclerotic heart disease of native coronary artery without angina pectoris; E78.5 Hyperlipidemia, unspecified; I25.2 Old myocardial infarction; F03.B0 Unspecified dementia, moderate, without behavioral disturbance, psychotic disturbance, mood disturbance, and anxiety; I65.21 Occlusion and stenosis of right carotid artery; Z79.82 Long term (current) use of aspirin; Z79.899 Other long term (current) drug therapy; Z86.73 Personal history of transient ischemic attack (TIA), and cerebral infarction without residual deficits; Z87.442 Personal history of urinary calculi; Z95.1 Presence of aortocoronary bypass graft; Z87.19 Personal history of other diseases of the digestive system; Z98.42 Cataract extraction status, left eye; Z98.41 Cataract extraction status, right eye
CPT/HCPCS: 36415; 70450; 70496; 70498; 71046; 76604; 80048; 80053; 81001; 83605; 83735; 83880; 84484; 85025; 85610; 85730; 93005; 93306; 94660; 94760; 96365; 96366; 96375; 96376; 99285